=== PATIENT | male | born 1990 | race Two or more races ===

== ENCOUNTER 2020-07-09 01:08 | Emergency (ER) | payer MEDICAID, SELFPAY ==
[2020-07-09 01:11] VITALS: BP 157/94; PULSE 57; RESP 16; TEMP 36.7; O2SAT 98; BMI 31.1
--- NOTE | 2020-07-09 01:43 | ED.DENTAL ---
HPI - Dental/Oral General Chief complaint: Dental/Oral Stated complaint: Dental pain Time Seen by Provider: 07/09/20 01:34 Source: patient Mode of arrival: ambulatory Limitations: no limitations History of Present Illness HPI Narrative: patient comes in complaining of dental pain, maxillary aspect on right side. Patient was seen here on May 24 for the same reason. Patient states he has not been seen by his dentist. MD Complaint: tooth pain Onset (ago): week(s) Duration: constant Severity: moderate Relieving factors: nothing Related Data Previous Rx's Medication Instructions Recorded ketorolac 10 mg PO TID PRN 5 Days tab 07/09/20 penicillin V potassium 500 mg PO Q12H #20 tab 07/09/20 Allergies Allergy/AdvReac Type Severity Reaction Status Date / Time No Known Allergies Allergy Verified 07/09/20 01:10 Review of Systems ENT: Reports dental pain PMFSH Social History Social History Advance Directives: No Advance Directives Information Provided: No Physical Exam Vital Signs: Vital Signs: Vital Signs Temp Pulse Resp BP Pulse Ox 07/09/20 01:11 98.0 F 57 16 157/94 H 98 Body Mass Index 31.1 Const: General: cooperative and well developed Orientation/consciousness: patient oriented x3 HENMT: Head: Yes normal to inspection Ears: external ears normal General nose exam: Normal external nose present Teeth and gingiva: abnormal dentition, caries and other ( Broken tooth in the right maxillary aspect, no obvious abscess visualized) Eyes: General: appearance normal, both eyes and all related structures Neck: Neck: Yes normal visual inspection Chest: Chest palpation & inspection: normal inspection of the chest Resp: Effort & Inspection: able to speak in complete sentences and abnormal respiratory pattern Cardio: Heart sounds: S1 normal heart sound present and S2 normal heart sound present GI: Inspection: Yes normal to inspection Palpation (GI): Soft to palpation and nontender Skin: General skin exam: no rashes or lesions noted Neuro: General: patient oriented x3, gait normal, tone normal and moves all extremities Extrem: General: Yes normal to inspection Psych: Appearance: grossly normal Course Reevaluation(s) Reevaluation #1: patient received 1 dose penicillin p.o. and IM Toradol. MDM - Dental/Oral MDM Narrative Medical decision making narrative: I discussed with the patient, that the definitive treatment is tooth extraction versus root canal, patient is to follow-up with his dentist Discharge Plan Discharge Clinical Impression: Toothache, Dental abscess Patient Disposition: Home, Self-Care Instructions: Dental Abscess (ED) Additional Instructions: please call your dentist and schedule an appointment. If you have any new or worsening symptoms, please return to the emergency room or call 911 Prescriptions: New ketorolac 10 mg tablet 10 mg PO TID PRN (Reason: pain) 5 Days RF: 0 penicillin V potassium 500 mg tablet 500 mg PO Q12H Qty: 20 RF: 0
[2020-07-09] MEDS: Ketorolac Tromethamine 60 MG/2 ML VIAL IM (02:14)
[2020-07-09] MEDS: Penicillin V Potassium 250 MG TABLET 500 MG PO (02:15)
== END 2020-07-09 02:39 | disposition home or self-care (01) ==
PROVIDERS: Emergency Provider Emergency Medicine; PCP Nurse Practitioner Family
DX: K04.7 Periapical abscess without sinus (principal); L02.91 Cutaneous abscess, unspecified
CPT/HCPCS: 96372; 99283; 99284; J1885

== ENCOUNTER 2020-07-11 05:11 | Emergency (ER) | payer MEDICAID, SELFPAY ==
[2020-07-11 05:14] VITALS: BP 152/88; PULSE 81; RESP 18; TEMP 36.2; O2SAT 96; BMI 31.1
[2020-07-11 06:00] VITALS: BP 149/100; PULSE 78; RESP 18; O2SAT 99
--- NOTE | 2020-07-11 06:14 | ED.DENTAL ---
HPI - Dental/Oral General Chief complaint: Dental/Oral Stated complaint: Dental Pain Time Seen by Provider: 07/11/20 06:14 History of Present Illness HPI Narrative: This is a 30-year-old male with left upper molar tooth abscess and seen here on 07/09 and discharged with antibiotics and pain medication, however but patient states that he was unable to pick his prescription up from [facility]. Otherwise, he denies any fevers, chills. Related Data Previous Rx's Medication Instructions Recorded ketorolac 10 mg PO TID PRN 5 Days tab 07/09/20 penicillin V potassium 500 mg PO Q12H #20 tab 07/09/20 ketorolac 10 mg PO TID PRN 5 Days tab 07/11/20 penicillin V potassium 500 mg PO Q12H #20 tab 07/11/20 Allergies Allergy/AdvReac Type Severity Reaction Status Date / Time No Known Allergies Allergy Verified 07/11/20 05:13 Review of Systems Review of Systems: Pertinent positives and negatives as stated in HPI 10 point review of systems otherwise negative. PMFSH Past Medical History Source: nursing notes reviewed Medical History No known health problems Social History Social History Alcohol intake: current Alcohol intake frequency: a few times a week Smoking Status: Current every day smoker Smoked in Last 30 Days: Yes Use of substances other than those prescribed or required for medical reasons: Yes Substance Use Type: Marijuana Substance Use Frequency: Daily Last Used Substance: Days (ago) Any prior treatment program specific to substance use: No Advance Directives: No Advance Directives Information Provided: No Physical Exam Vital Signs: Vital Signs: Vital Signs Temp Pulse Resp BP Pulse Ox 07/11/20 06:00 78 18 149/100 H 99 07/11/20 05:14 97.2 F 81 18 152/88 H 96 Body Mass Index 31.1 VITAL SIGNS: Reviewed. GENERAL: Well developed, well nourished, in no acute distress. HEAD: Normocephalic/atraumatic, EYES: PERRLA, EOMI intact without pain, no nystagmus/pallor/icterus noted EARS: Ext canals without abnormality, TMs non-bulging and non-erythematous NOSE: Nares patent bilateral OROPHARYNX: no oral lesions noted, posterior pharynx clear and non-erythematous without noted tonsillar enlargement/erythema/exudates , left upper molar with inflamed gum, negative trismus NECK: Supple, no adenopathy LUNGS: Normal breath sounds. No adventitious sounds or accessory muscle use. SpO2<96> CARDIOVASCULAR: Regular rate and rhythm without noted murmurs, no JVD or lower extremity edema. ABDOMEN: Soft, non-tender, non-distended with bowel sounds. No rigidity. No guarding. No palpable masses or hernias noted MUSCULOSKELETAL: No tenderness, deformities, or effusions noted on gross inspection. EXTREMITIES: No cyanosis, clubbing or edema. SKIN: Inspection of the skin reveals no rashes, ulcerations, jaundice, pallor, or petechiae. NEUROLOGIC: Alert and oriented x 4. Strength and sensation to light touch were grossly intact x 4. Course Course Course Narrative: This is a 30-year-old male with history and clinical presentation consistent with dental abscess and will resend antibiotics and provide combination analgesic pain control here in the emergency department and then discharge to home. Discharge Plan Discharge Clinical Impression: Dental abscess Patient Disposition: Home, Self-Care Instructions: Dental Abscess (ED) Additional Instructions: The patient and/or family acknowledge understanding of results (as applicable), diagnosis, treatment plan, need for follow up, and symptoms that should prompt a return to the emergency room. Prescriptions: New penicillin V potassium 500 mg tablet 500 mg PO Q12H Qty: 20 RF: 0 ketorolac 10 mg tablet 10 mg PO TID PRN (Reason: pain) 5 Days RF: 0 Continued ketorolac 10 mg tablet 10 mg PO TID PRN (Reason: pain) 5 Days RF: 0 penicillin V potassium 500 mg tablet 500 mg PO Q12H Qty: 20 RF: 0 Referrals: Rosi Valdes NP [Primary Care Provider] - 2 days ( dental abscess)
[2020-07-11] MEDS: Acetaminophen 325 MG TABLET 975 MG PO (06:46)
[2020-07-11] MEDS: Ketorolac Tromethamine 15 MG/ML VIAL IM (06:46)
== END 2020-07-11 07:30 | disposition home or self-care (01) ==
PROVIDERS: Emergency Provider Student in an Organized Health Care Education/Training Program; PCP Nurse Practitioner Family
DX: K04.7 Periapical abscess without sinus (principal); F12.90 Cannabis use, unspecified, uncomplicated
CPT/HCPCS: 96372; 99284; J1885

== ENCOUNTER 2020-07-24 09:07 | Emergency (ER) | payer MEDICAID, SELFPAY ==
--- NOTE | 2020-07-24 09:19 | ED.EYEPROB ---
HPI - Eye Problem General Chief complaint: Eye Problems Stated complaint: swollen eye Time Seen by Provider: 07/24/20 09:17 Source: patient Mode of arrival: ambulatory Limitations: no limitations History of Present Illness HPI Narrative: 30 y/o male presenting with a right swollen eye. He states he woke up with a swollen right upper eyelid this morning. He 1st noted some swelling last night, he uses a warm compress on the area but this morning woke up markedly swollen. He has an extensive history of stye infections in the past and usually gets them 3-4 times per year. He states his vision is blurry from the swelling and it is painful to touch. He does not wear corrective lenses or glasses. He reports some mild crusting and discharge this morning when he woke up. No redness of his sclera. No fevers. No foriegn body sensation. Related Data Previous Rx's Medication Instructions Recorded ketorolac 10 mg PO TID PRN 5 Days tab 07/09/20 penicillin V potassium 500 mg PO Q12H #20 tab 07/09/20 ketorolac 10 mg PO TID PRN 5 Days tab 07/11/20 penicillin V potassium 500 mg PO Q12H #20 tab 07/11/20 erythromycin 0.5 inch OPHTHALMIC-RIGHT 4-5XD 07/24/20 #3.5 g Allergies Allergy/AdvReac Type Severity Reaction Status Date / Time No Known Allergies Allergy Verified 07/11/20 05:13 Review of Systems Review of Systems: Constitutional: No Fever, No Chills ENT/Mouth: No sore throat, No Rhinorrhea, No Swallowing Difficulty Eyes: + Eye Pain, + Swelling, + Redness Cardiovascular: No Chest Pain, No SOB, No Orthopnea, No Edema Respiratory: No Cough, No Sputum, No Wheezing, No dyspnea Gastrointestinal: No Nausea, No Vomiting, No Diarrhea, No abdominal Pain Musculoskeletal: No joint pain, No Myalgias Skin: No Skin Lesions, No rash Neuro: No Weakness, No Numbness, No Dizziness, No Headache Psych: No Anxiety/Panic, No Depression Heme/Lymph: No Bruising, No Lymphadenopathy PMFSH Past Medical History Attestation statement: The following information was validated with the patient. Medical History No known health problems Social History Social History Alcohol intake: current Alcohol intake frequency: a few times a week Alcohol type: beer, wine and hard liquor Smoking Status: Current every day smoker Use of substances other than those prescribed or required for medical reasons: Yes Substance Use Type: Marijuana Substance Use Frequency: Daily Last Used Substance: Hours (ago) Advance Directives: No Advance Directives Information Provided: No Physical Exam Vital Signs: Vital Signs: Vital Signs Temp Pulse Resp BP Pulse Ox 07/24/20 09:22 98.2 F 83 18 140/112 H 97 Body Mass Index 31.1 Appearance: Alert. Oriented X3. No acute distress. Eyes: right eye upper lid with erythema, swelling, tenderness. lid everted with pustular area visualized under the lid. no discharge. no orbital swelling or erythema. no conjunctivial injection or discharge ENT: Pharynx normal. Neck: Normal inspection. Respiratory: No respiratory distress. Abdomen: normal inspection. Skin: Skin warm and dry. Normal skin color. Normal skin turgor. No rashes. Extremities: No lower extremity edema. Neuro: Oriented X 3. No motor deficit. No sensory deficit. Course Course Course Narrative: Patient has a history of styes and gets them frequently. He denies foreign body. Low suspicion for corneal abrasion, periorbital cellulitis. Will treat for external hordeolum and have him follow up with his PCP. MDM - Eye Problem Differential Diagnosis Differential diagnosis: Likely corneal abrasion, conjunctivitis, acute iritis, hyphema and periorbital cellulitis Critical Care Time Critical Care Time Critical Care Time: No Discharge Plan Discharge Clinical Impression: External hordeolum Qualifiers: Laterality: right Eyelid: upper Qualified Code(s): H00.011 - Hordeolum externum right upper eyelid Patient Disposition: Home, Self-Care Instructions: Stye (ED) Additional Instructions: Use warm compresses on your eye several times per day. Do not wear contact lenses until your eye is back to normal. If swelling continues to worsen call your doctor or come back to the ER for further evaluation. Prescriptions: New erythromycin 5 mg/gram (0.5 %) ointment 0.5 inch ophthalmic-Right 4-5XD Qty: 3.5 RF: 0 No Action ketorolac 10 mg tablet 10 mg PO TID PRN (Reason: pain) 5 Days RF: 0 penicillin V potassium 500 mg tablet 500 mg PO Q12H Qty: 20 RF: 0 penicillin V potassium 500 mg tablet 500 mg PO Q12H Qty: 20 RF: 0 ketorolac 10 mg tablet 10 mg PO TID PRN (Reason: pain) 5 Days RF: 0 Stand Alone Forms: Work/School Release Interventions: ED Discharge Assessment Last Done: 07/24/20 09:49 Discharge Date/Time: 07/24/20 09:55
[2020-07-24 09:22] VITALS: BP 140/112; PULSE 83; RESP 18; TEMP 36.8; O2SAT 97; BMI 31.1
== END 2020-07-24 09:55 | disposition home or self-care (01) ==
PROVIDERS: Emergency Provider Emergency Medicine; PCP Nurse Practitioner Family
DX: H00.011 Hordeolum externum right upper eyelid (principal); H57.11 Ocular pain, right eye; Z71.6 Tobacco abuse counseling; Z79.899 Other long term (current) drug therapy; F17.200 Nicotine dependence, unspecified, uncomplicated; F12.90 Cannabis use, unspecified, uncomplicated
CPT/HCPCS: 99283; 99284

== ENCOUNTER 2020-09-24 15:04 | Outpatient (REF) | payer MEDICAID, SELFPAY | END 2020-09-24 15:05 | disposition home or self-care (01) | LOC: HO.LAB 15:04 | PROVIDERS: Visit Provider Internal Medicine | DX: Z20.828 Contact with and (suspected) exposure to other viral communicable diseases (principal) | CPT/HCPCS: 36415; C9803; U0003 ==

== ENCOUNTER 2020-10-10 14:08 | Outpatient (REF) | payer MEDICAID, SELFPAY | END 2020-10-10 14:09 | disposition home or self-care (01) | LOC: HO.LAB 14:08 | PROVIDERS: Visit Provider Internal Medicine | DX: Z20.822 Contact with and (suspected) exposure to COVID-19 (principal) | CPT/HCPCS: 36415; C9803; U0003 ==

== ENCOUNTER 2020-11-21 11:18 | Outpatient (REF) | payer MEDICAID, SELFPAY | END 2020-11-21 11:19 | disposition home or self-care (01) | LOC: HO.LAB 11:18 | PROVIDERS: Visit Provider Internal Medicine | DX: Z20.822 Contact with and (suspected) exposure to COVID-19 (principal) | CPT/HCPCS: 36415; C9803; U0003; U0005 ==

== ENCOUNTER 2020-12-31 10:59 | Outpatient (REF) | payer MEDICAID, SELFPAY | END 2020-12-31 11:00 | disposition home or self-care (01) | LOC: HO.LAB 10:59 | PROVIDERS: Visit Provider Internal Medicine | DX: Z20.822 Contact with and (suspected) exposure to COVID-19 (principal) | CPT/HCPCS: C9803; U0003; U0005 ==

== ENCOUNTER 2021-05-02 05:51 | Emergency (ER) | payer MEDICAID, SELFPAY ==
--- NOTE | ~2021-05-02 | XR_ITS ---
EXAMINATION: XR CHEST CLINICAL INFORMATION: Covid. Cough. Chest wall pain. COMPARISON: 10/28/2018 TECHNIQUE: Frontal view of the chest was obtained. FINDINGS: The lungs are well expanded. There is no focal consolidation, edema, or effusion. No pneumothorax. The cardiomediastinal silhouette is within normal limits. No acute osseous abnormality. XR/XR chest 1V IMPRESSION: Clear lungs.
[2021-05-02 05:58] VITALS: BP 124/76; PULSE 88; RESP 18; TEMP 36.3; O2SAT 93; BMI 31.1
--- NOTE | 2021-05-02 06:38 | ED_ITS ---
HPI - URI/Sore Throat General Chief Complaint: Upper Respiratory Symptoms Stated Complaint: flu like symptoms Time Seen by Provider: 05/02/21 06:28 Source: patient Mode of arrival: ambulatory Limitations: no limitations History of Present Illness HPI Narrative: Patient comes emergency room complaining coughing for 1 week. Patient reports nasal congestion and diffuse body aches. Patient states that his 3-year-old son has similar symptoms. Patient denies fever or chills, complaining nausea, no vomiting, complaining of diarrhea. Related Data Previous Rx's Medication Instructions Recorded ketorolac 10 mg tablet 10 mg PO TID PRN 5 Days tab 07/09/20 penicillin V potassium 500 mg 500 mg PO Q12H #20 tab 07/09/20 tablet ketorolac 10 mg tablet 10 mg PO TID PRN 5 Days tab 07/11/20 penicillin V potassium 500 mg 500 mg PO Q12H #20 tab 07/11/20 tablet erythromycin 5 mg/gram (0.5 %) eye 0.5 inch OPHTHALMIC-RIGHT 4-5XD 07/24/20 ointment #3.5 g benzonatate 100 mg capsule 100 mg PO TID PRN #10 cap 05/02/21 (Tesjuventino Sung) Allergies Allergy/AdvReac Type Severity Reaction Status Date / Time No Known Allergies Allergy Verified 05/02/21 06:02 Review of Systems Review of Systems: Constitutional : No Weight loss, No Fever, No Chills, No Night Sweats, complains of fatigue and diffuse body aches ENT/Mouth : No Hearing loss, No Ear Pain, No Nasal Congestion, No Sinus Pain, No Hoarseness, No sore throat, No Rhinorrhea, No Swallowing Difficulty Eyes: No Eye Pain, No Swelling, No Redness, No Foreign Body, No Discharge, No Vision Changes Cardiovascular : Complaining of chest wall pain only while coughing, No SOB, No Dyspnea on Exertion, No Orthopnea, No Edema, No Palpitations Respiratory : Complaining of dry Cough, No Sputum, No Wheezing, No Smoke Exposure, No Dyspnea Gastrointestinal : Complaining of Nausea, No Vomiting, complaining of Diarrhea, No Constipation, No abdominal Pain, No Hematochezia, No Melena Genitourinary : no irregular bleeding, No Dysuria, No Urinary Frequency, No Hematuria, No Urinary Incontinence, No Urgency, No Flank Pain, No Urinary Flow Changes, No Hesitancy Musculoskeletal : No joint pain, No Myalgias, No Joint Swelling Skin : No Skin Lesions, No rash Neuro : No Weakness, No Numbness, No Paresthesias, No Loss of Consciousness, No Dizziness, No Headache Psych : No Anxiety/Panic, No Depression, No SI/HI/AH/VH, No Social Issues, Heme/Lymph: No Bruising, No Bleeding,No Lymphadenopathy Endocrine : No Polyuria, No Polydipsia, No Temperature Intolerance [facility] Past Medical History Medical History No known health problems Social History Social History Alcohol intake: current Alcohol intake frequency: a few times a week Alcohol type: beer, wine and hard liquor Substance Use Type: Marijuana Advance Directives: No Advance Directives Information Provided: No Physical Exam Vital Signs: Vital Signs: Last Vital Signs Temp 97.3 F 05/02/21 05:58 Pulse 88 05/02/21 05:58 Resp 18 05/02/21 05:58 BP 124/76 05/02/21 05:58 Pulse Ox 93 05/02/21 05:58 Body Mass Index 31.1 Course Course Course Narrative: Patient's x-ray unremarkable and COVID test negative. Patient likely having viral bronchitis. MDM - URI/Sore Throat Lab Data Labs: Lab Results 05/02/21 Range/Units 06:14 Coronavirus (PCR) NEGATIVE (Negative) Influenza Type A (PCR) NEGATIVE (Negative) Influenza Type B (PCR) NEGATIVE (Negative) RSV RNA Qual (PCR) NEGATIVE (Negative) Imaging Data Chest x-ray: Radiologist's impression: The lungs are well expanded. There is no focal consolidation, edema, or effusion. No pneumothorax. The cardiomediastinal silhouette is within normal limits. No acute osseous abnormality. XR/XR chest 1V IMPRESSION: Clear lungs. Discharge Plan Discharge Clinical Impression: Acute bronchitis, viral Patient Disposition: Home, Self-Care Instructions: Acute Bronchitis (ED) Additional Instructions: COVID test was negative and your chest x-ray was normal. Please follow-up with your primary care physician tomorrow. If you have any worsening or new symptoms, please return to the emergency room or call 911 Prescriptions: New benzonatate [Tessalon Perlaltagracia] 100 mg capsule 100 mg PO TID PRN (Reason: cough) Qty: 10 RF: 0 No Action erythromycin 5 mg/gram (0.5 %) ointment 0.5 inch ophthalmic-Right 4-5XD Qty: 3.5 RF: 0 ketorolac 10 mg tablet 10 mg PO TID PRN (Reason: pain) 5 Days RF: 0 penicillin V potassium 500 mg tablet 500 mg PO Q12H Qty: 20 RF: 0 penicillin V potassium 500 mg tablet 500 mg PO Q12H Qty: 20 RF: 0 ketorolac 10 mg tablet 10 mg PO TID PRN (Reason: pain) 5 Days RF: 0
[2021-05-02 07:15] LABS: Influenza A PCR NEGATIVE (Negative); Influenza B PCR NEGATIVE (Negative); Resp Syncy Virus RNA Qual PCR NEGATIVE (Negative); SARS COV2 PCR INHOUSE NEGATIVE (Negative)
== END 2021-05-02 08:43 | disposition home or self-care (01) ==
PROVIDERS: Emergency Provider Emergency Medicine
DX: J20.8 Acute bronchitis due to other specified organisms (principal); Z20.822 Contact with and (suspected) exposure to COVID-19; F17.210 Nicotine dependence, cigarettes, uncomplicated
CPT/HCPCS: 0241U; 36415; 71045; 99283

== ENCOUNTER 2021-05-08 08:00 | Emergency (ER) | payer MEDICAID, SELFPAY ==
--- NOTE | ~2021-05-08 | CT_ITS ---
EXAMINATION: CT ANGIOGRAM OF THE CHEST WITH AND WITHOUT CONTRAST (CT PULMONARY ANGIOGRAM FOR PE) CLINICAL INFORMATION: Dyspnea. Hemoptysis. Evaluate for a pulmonary embolism. COMPARISON: Most recent chest radiograph dated 05/02/2021. TECHNIQUE: Prior to contrast administration, noncontrast localization images were obtained. Subsequently, multidetector volumetric imaging was performed from the thoracic inlet to below the diaphragms following the administration of 75 mL Omnipaque 350 intravenous contrast. No contrast reaction reported Sagittal, coronal, and MIP oblique sagittal reformatted images were obtained on the CT workstation, uploaded to PACS, and reviewed. This CT examination was performed using dose optimization techniques as appropriate, variously including the following: *Automated exposure control *Adjustment of mA and/or kV according to patient size (this includes techniques or standardized protocols for targeted exams where dose is matched to indication/reason for exam; i.e. extremities or head) *Use of iterative reconstruction technique Total exam dose-length product 409 mGy-cm FINDINGS: QUALITY OF STUDY/CONTRAST BOLUS: Satisfactory. PULMONARY ARTERIES: No central or segmental pulmonary emboli. THORACIC AORTA: No aneurysm or dissection. LUNG: There is a subpleural nodule along the right major fissure measuring 0.5 cm, which may represent a nodule versus subpleural lymph node. Within the posterior right lung base, there is a 0.2 cm noncalcified subpleural nodule (axial image 3-60 4/501). Additional posterior right lower lobe 0.2 cm nodule (axial image 381/501). Left upper lobe 0.2 cm nodule (axial image 2-50 6/501). Left lower lobe 0.2 cm nodule (axial image 283/501). Additional posterior left lower lobe 0.3 cm subpleural nodule (axial image 345/501). No large pulmonary mass or confluent airspace consolidation. The central airways are patent. PLEURA: No pleural effusion or pneumothorax. MEDIASTINUM: Normal heart size. No pericardial effusion. No hilar or mediastinal lymphadenopathy. Mild heterogeneous soft tissue within the anterosuperior mediastinum, likely indicating residual thymus. Partially visualized and unremarkable thyroid. No evidence of septal bowing or right heart strain. CHEST WALL/AXILLA: No axillary or internal mammary lymphadenopathy. OSSEOUS STRUCTURES: No acute or suspicious osseous abnormality. UPPER ABDOMEN: Unremarkable. No reflux of contrast into the hepatic veins to suggest elevated right heart pressures. CT/CT angio chest PE protocol IMPRESSION: 1. No CT angiographic evidence of acute pulmonary embolism. 2. Multiple small noncalcified pulmonary nodules measuring up to 0.5 cm. According to the UPDATED 2017 Fleischner Society recommendations, the advised follow-up imaging for solid nodules < 6 mm is: LOW RISK PATIENT: No routine follow-up. HIGH RISK PATIENT: Optional CT at 12 months. 3. No large coronary mass or confluent airspace consolidation. VTE: Negative.
--- NOTE | 2021-05-08 08:04 | ED_ITS ---
HPI - SOB/Dyspnea General Chief Complaint: Upper Respiratory Symptoms Stated Complaint: coughing up blood Time Seen by Provider: 05/08/21 08:04 Source: patient Mode of arrival: ambulatory Limitations: no limitations History of Present Illness MD elicited complaint: cough (streaks of blood hemoptysis) Onset (ago): day(s) (yesterday had cough for 4 days recently seen here negative CXR negative COVID sent home with bethwerojoss) Context: recent illness Timing: intermittent Severity: moderate Exacerbating factors: exertion Relieving factors: nothing Associated symptoms: sputum production and hemoptysis Treatment prior to arrival: none Related Data Previous Rx's Medication Instructions Recorded ketorolac 10 mg tablet 10 mg PO TID PRN 5 Days tab 07/09/20 penicillin V potassium 500 mg 500 mg PO Q12H #20 tab 07/09/20 tablet ketorolac 10 mg tablet 10 mg PO TID PRN 5 Days tab 07/11/20 penicillin V potassium 500 mg 500 mg PO Q12H #20 tab 07/11/20 tablet erythromycin 5 mg/gram (0.5 %) eye 0.5 inch OPHTHALMIC-RIGHT 4-5XD 07/24/20 ointment #3.5 g benzonatate 100 mg capsule 100 mg PO TID PRN #10 cap 05/02/21 (Bethsaljoss Sung) albuterol sulfate 90 mcg/actuation 2 puff INHALATION QID PRN #6.7 g 05/08/21 aerosol inhaler azithromycin 500 mg tablet See Rx Instructions .ROUTE 05/08/21 .COMPLEX #6 tab prednisone 20 mg tablet 60 mg PO DAILY 5 Days #15 tab 05/08/21 Allergies Allergy/AdvReac Type Severity Reaction Status Date / Time No Known Allergies Allergy Verified 05/02/21 06:02 Review of Systems Review of Systems: Constitutional : No Weight loss, No Fever, No Chills, No Fatigue, No Malaise ENT/Mouth : No sore throat, No Rhinorrhea Eyes: No Eye Pain, No Swelling, No Redness Cardiovascular : No Chest Pain,pos SOB, No Dyspnea on Exertion, No Orthopnea, No Edema, No Palpitations Respiratory : pos Cough, pos Sputum, No Wheezing Gastrointestinal : No Nausea, No Vomiting, No Diarrhea, No Constipation, No abdominal Pain, No Hematochezia, No Melena Genitourinary : No Dysuria, No Urinary Frequency, No Hematuria, Musculoskeletal : No joint pain, No Myalgias, No Joint Swelling Skin : No Skin Lesions, No rash Neuro : No Weakness, No Numbness, No Dizziness, No Headache Psych : No Anxiety/Panic, No Depression Heme/Lymph: No Bruising, No Bleeding,No Lymphadenopathy Endocrine : No Polyuria, No Polydipsia All other systems reviewed and are negative PMFSH Past Medical History Medical History No known health problems Social History Social History Alcohol intake: current Alcohol intake frequency: former alcohol drinker Alcohol type: beer, wine and hard liquor Patient Tobacco Use Status: Current everyday Tobacco user Use of substances other than those prescribed or required for medical reasons: Yes Substance Use Type: Marijuana Substance Use Frequency: Weekly Advance Directives: No Advance Directives Information Provided: No Physical Exam Vital Signs: Vital Signs: Last Vital Signs Temp 98.0 F 05/08/21 08:08 Pulse 70 05/08/21 08:44 Resp 20 05/08/21 08:44 BP 130/70 05/08/21 08:08 Pulse Ox 99 05/08/21 08:45 Body Mass Index 31.1 Appearance: Alert. Oriented X3. No acute distress. Eyes: Pupils equal, round and reactive to light. ENT: Pharynx normal. Neck: Normal inspection. Neck supple. CVS: Normal heart rate and rhythm. Pulses normal. Respiratory: No respiratory distress. Breath sounds diffuse end exp wheezes Abdomen: Soft and nontender. Skin: Skin warm and dry. Normal skin color. Normal skin turgor. Extremities: No lower extremity edema. No calf ttp Neuro: Oriented X 3. No motor deficit. No sensory deficit. Course Course Course Narrative: will start on steroids, INH, zpak for bronchitis MDM - SOB/Dyspnea MDM Narrative Medical decision making narrative: 30 yo male otherwise healthy here with cough/hemoptysis and wheezing no prior hx of asthma, will repeat COVID test, obtain labs, CTA for PE/mass likely bronchitis, albuterol treatment ordered, dispo per results and findings. Lab Data Result diagrams: 05/08/21 08:32 05/08/21 08:32 Labs: Lab Results 05/08/21 05/08/21 05/08/21 Range/Units 08:32 08:32 08:32 WBC 11.1 H (4.8-10.8) X10*3/uL RBC 5.28 (4.60-5.80) X10*6/uL Hgb 15.6 (14.0-18.0) g/dl Hct 46.1 (42-52) % MCV 87.3 (80-98) fL MCH 29.5 (27.0-33.0) pg MCHC 33.8 (31.0-36.0) g/dl RDW 13.2 (11.0-16.0) % Plt Count 259 (160-400) X10*3/uL MPV 10.2 (9.4-12.4) fL Immature Gran % (Auto) 0.3 (0.0-0.4) % Neut % (Auto) 57.1 (45-73) % Lymph % (Auto) 33.0 (20-40) % [place] % (Auto) 6.2 (2-11) % Eos % (Auto) 2.9 (0-4) % Baso % (Auto) 0.5 (0-2) % Lymph # (Auto) 3.7 (1.2-4.9) X10*3/uL [place] # (Auto) 0.7 (0.1-1.2) X10*3/uL Eos # (Auto) 0.3 (0.0-0.4) X10*3/uL Baso # (Auto) 0.1 (0.0-0.2) X10*3/uL Abs Immat Gran (auto) 0.03 (0.00-0.03) X10*3/uL Absolute Neuts (auto) 6.3 (2.0-8.3) X10*3/uL Absolute Nucleated RBC 0.000 (0.0-0.012) X10*3/uL Nucleated RBC % (auto) 0.0 (0.0-0.2) /100WBC Sodium 140 (135-145) mmol/L Potassium 3.8 (3.3-5.1) mmol/L Chloride 107 (96-108) mmol/L Carbon Dioxide 26 (22-29) mmol/L Anion Gap 11 L (12-20) BUN 13 (9-16) mg/dL Creatinine 0.89 (0.5-1.4) mg/dL Estim Creat Clear Calc 151.5 Estimated GFR > 60 Random Glucose 99 (60-115) mg/dL Calcium 9.1 (8.4-10.2) mg/dL Total Bilirubin 0.5 (0.0-1.0) mg/dL Direct Bilirubin 0.2 (0.0-0.5) mg/dL AST 22 (5-37) U/L ALT 28 (0-40) U/L Alkaline Phosphatase 81 (39-117) U/L Total Protein 7.3 (6.5-8.0) g/dL Albumin 4.1 (3.5-5.0) g/dL COVID-19 (EMY) Negative (Negative) COVID-19 Clin Com See Note Discharge Plan Discharge Clinical Impression: Bronchitis Patient Disposition: Home, Self-Care Instructions: Acute Bronchitis (ED) Additional Instructions: return to ED for any worsening symptoms or concerns COVID test was negative avoid aspirin 2 puffs on inhaler every 4 hours as needed for cough or shortness of breath you had small nodules in your lungs likely related to inflammation - follow up with doctor you may need repeat CT scan in 1 year avoid smoking Prescriptions: New prednisone 20 mg tablet 60 mg PO DAILY 5 Days Qty: 15 RF: 0 albuterol sulfate 90 mcg/actuation HFA aerosol inhaler 2 puff inhalation QID PRN (Reason: shortness of breath or wheezing) Qty: 6.7 RF: 0 azithromycin 500 mg tablet See Rx Instructions .ROUTE .COMPLEX Qty: 6 RF: 0 No Action erythromycin 5 mg/gram (0.5 %) ointment 0.5 inch ophthalmic-Right 4-5XD Qty: 3.5 RF: 0 benzonatate [Tessalon Perles] 100 mg capsule 100 mg PO TID PRN (Reason: cough) Qty: 10 RF: 0 ketorolac 10 mg tablet 10 mg PO TID PRN (Reason: pain) 5 Days RF: 0 penicillin V potassium 500 mg tablet 500 mg PO Q12H Qty: 20 RF: 0 penicillin V potassium 500 mg tablet 500 mg PO Q12H Qty: 20 RF: 0 ketorolac 10 mg tablet 10 mg PO TID PRN (Reason: pain) 5 Days RF: 0 Referrals: [facility] [Primary Care Provider] - 2 days (if not better) Stand Alone Forms: Work/School Release
[2021-05-08 08:08] VITALS: BP 130/70; PULSE 84; RESP 18; TEMP 36.7; O2SAT 96; BMI 31.1
[2021-05-08] MEDS: Albuterol Sulfate (0.083%) 2.5 MG/3 ML VIAL.NEB INHALE (08:19)
[2021-05-08 08:20] VITALS: PULSE 75; O2SAT 96
[2021-05-08 08:38] LABS: MANUAL DIFF FLAG NO
[2021-05-08 08:41] LABS: Basophils Absolute Auto 0.1 X10*3/uL (0.0-0.2); Basophils Percent Auto 0.5 % (0-2); Eosinophils Absolute Auto 0.3 X10*3/uL (0.0-0.4); Eosinophils Percent Auto 2.9 % (0-4); Hematocrit 46.1 % (42-52); Hemoglobin 15.6 g/dl (14.0-18.0); Imm Gran Abs Auto 0.03 X10*3/uL (0.00-0.03); Imm Gran Pct Auto 0.3 % (0.0-0.4); Lymphocytes Absolute Auto 3.7 X10*3/uL (1.2-4.9); Mean Corpuscular HGB Conc 33.8 g/dl (31.0-36.0); Mean Corpuscular Hemoglobin 29.5 pg (27.0-33.0); Mean Corpuscular Volume 87.3 fL (80-98); Mean Platelet Volume 10.2 fL (9.4-12.4); Monocytes Absolute Auto 0.7 X10*3/uL (0.1-1.2); Monocytes Percent Auto 6.2 % (2-11); Neutrophils Absolute Auto 6.3 X10*3/uL (2.0-8.3); Neutrophils Percent Auto 57.1 % (45-73); Platelet Count 259 X10*3/uL (160-400); Red Blood Count 5.28 X10*6/uL (4.60-5.80); Red Cell Distribution Width 13.2 % (11.0-16.0); White Blood Count 11.1 X10*3/uL (4.8-10.8)
[2021-05-08 08:44] VITALS: PULSE 70; RESP 20; O2SAT 99
[2021-05-08 08:45] VITALS: O2SAT 99
--- NOTE | 2021-05-08 08:45 | PC.NURSE ---
PT ALERT AND ORIENTED, SKIN PWD, RESPIRATIONS EVEN AND UNLABORED, LS CLEAR, NS ON THE MONITOR. PT REPORTS FOR ABOUT 4 DAYS HAVING A DRY COUGH WAS TESTED FOR COVID AND IT WAS NEGATIVE, YESTERDAY COUGHING UP TINGES OF BLOOD-BRIGHT RED/STRIKES, HAVING SOME CHEST TIGHTNESS AND CHEST PAIN ONLY WITH COUGHING AND FEELING SOB WITH EXERTION
[2021-05-08 09:01] LABS: COVID-19 Test Negative (Negative)
[2021-05-08 09:23] LABS: Alanine Aminotransferase 28 U/L (0-40); Albumin Level 4.1 g/dL (3.5-5.0); Alkaline Phosphatase 81 U/L (39-117); Anion Gap 11 (12-20); Aspartate Amino Transferase 22 U/L (5-37); Bilirubin Direct 0.2 mg/dL (0.0-0.5); Blood Urea Nitrogen 13 mg/dL (9-16); Calcium 9.1 mg/dL (8.4-10.2); Carbon Dioxide 26 mmol/L (22-29); Chloride 107 mmol/L (96-108); Creatinine Clr Calc Pharmacy 151.5; Estimated Glomerular Filt Rate > 60; Glucose Random 99 mg/dL (60-115); Potassium 3.8 mmol/L (3.3-5.1); Sodium 140 mmol/L (135-145); Total Protein 7.3 g/dL (6.5-8.0)
[2021-05-08 09:48] LABS: Bilirubin Total 0.5 mg/dL (0.0-1.0)
[2021-05-08] MEDS: iohexoL 350 MG/ML 100 ML INFUS..BTL IV (09:57)
[2021-05-08] MEDS: Albuterol Sulfate 90 MCG 8 GM INHALER 2 PUFF INHALE (11:25)
== END 2021-05-08 11:37 | disposition home or self-care (01) ==
PROVIDERS: Emergency Provider Emergency Medicine
DX: J40 Bronchitis, not specified as acute or chronic (principal); R05 Cough; F17.200 Nicotine dependence, unspecified, uncomplicated; Z71.6 Tobacco abuse counseling; F12.90 Cannabis use, unspecified, uncomplicated; Z79.899 Other long term (current) drug therapy; Z20.822 Contact with and (suspected) exposure to COVID-19
CPT/HCPCS: 36415; 71275; 80048; 80076; 85025; 87635; 94640; 99284; 99285; Q9967

== ENCOUNTER 2021-06-05 04:26 | Emergency (ER) | payer MEDICAID, SELFPAY ==
[2021-06-05 04:37] VITALS: BP 130/86; PULSE 82; RESP 18; TEMP 36.9; O2SAT 96; BMI 31.2
== END 2021-06-05 04:45 | disposition left against medical advice (07) ==
LOC: HO.ED 04:45
PROVIDERS: Emergency Provider Emergency Medicine; PCP Nurse Practitioner Family
DX: R10.30 Lower abdominal pain, unspecified (principal)
CPT/HCPCS: 99281; 99282

== ENCOUNTER 2021-06-20 15:49 | Outpatient (REF) | payer MEDICAID, SELFPAY ==
[2021-06-20 16:13] LABS: COVID-19 Test Positive (Negative); IDNOW Serial# 9DD0AD1C
== END 2021-06-20 15:50 | disposition home or self-care (01) ==
LOC: HO.LAB 15:49
PROVIDERS: PCP Nurse Practitioner Family; Visit Provider Internal Medicine
DX: Z20.822 Contact with and (suspected) exposure to COVID-19 (principal)
CPT/HCPCS: 36415; 87635; C9803

== ENCOUNTER 2021-06-20 16:01 | Emergency (ER) | payer MEDICAID, SELFPAY ==
--- NOTE | ~2021-06-20 | XR_ITS ---
EXAMINATION: XR CHEST CLINICAL INFORMATION: Cough COMPARISON: CTA chest 05/08/2021. TECHNIQUE: 2 views of the chest were obtained. FINDINGS: Lungs are clear. No focal consolidation or mass. Normal pulmonary vascularity. No pleural effusion or pneumothorax. Normal heart size. No acute osseous abnormality. XR/XR chest 2V IMPRESSION: No acute pulmonary disease.
[2021-06-20 16:18] VITALS: BP 133/88; PULSE 101; RESP 18; TEMP 37.9; O2SAT 94; BMI 31.1
--- NOTE | 2021-06-20 22:39 | ED_ITS ---
HPI - General Adult General Chief complaint: General Medical Stated complaint: flu symptons Time Seen by Provider: 06/20/21 19:14 Source: patient Mode of arrival: ambulatory Limitations: no limitations History of Present Illness HPI narrative: Patient came back from [facility] after vacation 2 days ago complaining of increased artery cough shortness of breath headache body aches for last 24 hours was tested for COVID 2 days ago was negative. Also patient stepped on CR chain and has stinger in his right greater toe. Patient not been vaccinated against COVID-19 Related Data Previous Rx's Medication Instructions Recorded ketorolac 10 mg tablet 10 mg PO TID PRN 5 Days tab 07/09/20 penicillin V potassium 500 mg 500 mg PO Q12H #20 tab 07/09/20 tablet ketorolac 10 mg tablet 10 mg PO TID PRN 5 Days tab 07/11/20 penicillin V potassium 500 mg 500 mg PO Q12H #20 tab 07/11/20 tablet erythromycin 5 mg/gram (0.5 %) eye 0.5 inch OPHTHALMIC-RIGHT 4-5XD 07/24/20 ointment #3.5 g benzonatate 100 mg capsule 100 mg PO TID PRN #10 cap 05/02/21 (Tessalon Perles) albuterol sulfate 90 mcg/actuation 2 puff INHALATION QID PRN #6.7 g 05/08/21 aerosol inhaler azithromycin 500 mg tablet See Rx Instructions .ROUTE 05/08/21 .COMPLEX #6 tab prednisone 20 mg tablet 60 mg PO DAILY 5 Days #15 tab 05/08/21 dexamethasone 6 mg tablet 6 mg PO DAILY #7 tab 06/20/21 (Decadron) doxycycline hyclate 100 mg tablet 100 mg PO BID #20 tab 06/20/21 Allergies Allergy/AdvReac Type Severity Reaction Status Date / Time No Known Allergies Allergy Verified 06/20/21 16:17 Review of Systems Review of Systems: Yes all other systems are reviewed and are negative PMFSH Past Medical History Medical History No known health problems Social History Social History Alcohol intake: current Alcohol intake frequency: former alcohol drinker Alcohol type: beer, wine and hard liquor Patient Tobacco Use Status: Current everyday Tobacco user Substance Use Type: Marijuana Advance Directives: Yes Advance Directives Information Provided: Yes Advance Directives on File: No Physical Exam Vital Signs: Vital Signs: Last Vital Signs Temp 100.3 F 06/20/21 16:18 Pulse 101 H 06/20/21 16:18 Resp 18 06/20/21 16:18 BP 133/88 06/20/21 16:18 Pulse Ox 94 06/20/21 16:18 Body Mass Index 31.1 Appearance: Alert. Oriented X3. No acute distress. ENT: Pharynx normal. Oral Mucosa moist Neck: Normal inspection. Neck supple. CVS: Normal heart rate and rhythm. Pulses normal. Respiratory: No respiratory distress. Equal air entry bilateral, no wheezing/rales/rhonchi Abdomen: Soft and nontender. Skin: Skin warm and dry. Normal skin color. Normal skin turgor. Extremities: No lower extremity edema. No calf tenderness few stingers at the base of right great toe Neuro: Oriented X 3. Medical Decision Making MDM Narrative Medical decision making narrative: Patient COVID-19 positive with mild symptoms sting are at the base of right great toe were removed using needle and lidocaine patient will be discharged home on doxycycline and Decadron Lab Data Lab results reviewed: Yes I reviewed the patient's lab results. Discharge Plan Discharge Clinical Impression: COVID-19 Patient Disposition: Home, Self-Care Instructions: COVID-19 (Coronavirus Disease 2019) (ED) Additional Instructions: Social distancing and isolation as advised for 2 weeks Meds as advised Report to the ER if increased shortness of breath Prescriptions: New dexamethasone [Decadron] 6 mg tablet 6 mg PO DAILY Qty: 7 RF: 0 doxycycline hyclate 100 mg tablet 100 mg PO BID Qty: 20 RF: 0 No Action erythromycin 5 mg/gram (0.5 %) ointment 0.5 inch ophthalmic-Right 4-5XD Qty: 3.5 RF: 0 benzonatate [Tessalon Perles] 100 mg capsule 100 mg PO TID PRN (Reason: cough) Qty: 10 RF: 0 prednisone 20 mg tablet 60 mg PO DAILY 5 Days Qty: 15 RF: 0 albuterol sulfate 90 mcg/actuation HFA aerosol inhaler 2 puff inhalation QID PRN (Reason: shortness of breath or wheezing) Qty: 6.7 RF: 0 azithromycin 500 mg tablet See Rx Instructions .ROUTE .COMPLEX Qty: 6 RF: 0 ketorolac 10 mg tablet 10 mg PO TID PRN (Reason: pain) 5 Days RF: 0 penicillin V potassium 500 mg tablet 500 mg PO Q12H Qty: 20 RF: 0 penicillin V potassium 500 mg tablet 500 mg PO Q12H Qty: 20 RF: 0 ketorolac 10 mg tablet 10 mg PO TID PRN (Reason: pain) 5 Days RF: 0 Interventions: ED Discharge Assessment Last Done: 06/20/21 23:36 Discharge Date/Time: 06/20/21 23:37
[2021-06-20] MEDS: dexAMETHasone 6 MG TABLET PO (23:23)
[2021-06-20] MEDS: Lidocaine HCl 1 % MPF 5 ML VIAL INFILTRATI (23:33)
== END 2021-06-20 23:37 | disposition home or self-care (01) ==
PROVIDERS: Emergency Provider Internal Medicine; PCP Nurse Practitioner Family
DX: U07.1 COVID-19 (principal); R05 Cough; R06.02 Shortness of breath; M79.10 Myalgia, unspecified site; F12.90 Cannabis use, unspecified, uncomplicated; F17.200 Nicotine dependence, unspecified, uncomplicated; Z79.899 Other long term (current) drug therapy; Z71.6 Tobacco abuse counseling
CPT/HCPCS: 71046; 99283; 99284; J8540

== ENCOUNTER 2021-06-28 13:58 | Outpatient (REF) | payer MEDICAID, SELFPAY ==
[2021-06-28 14:59] LABS: COVID-19 Test Positive (Negative)
== END 2021-06-28 13:59 | disposition home or self-care (01) ==
LOC: HO.LAB 13:58
PROVIDERS: PCP Nurse Practitioner Family; Visit Provider Internal Medicine
DX: Z20.822 Contact with and (suspected) exposure to COVID-19 (principal)
CPT/HCPCS: 36415; 87635; C9803

== ENCOUNTER 2021-09-21 10:59 | Outpatient (REF) | payer MEDICAID, SELFPAY ==
[2021-09-21 11:40] LABS: Binax Internal Control QC Valid; Binax Lot number: 9864; Binax Now Covid-19 Ag Negative (Negative)
== END 2021-09-21 11:00 | disposition home or self-care (01) ==
LOC: HO.LAB 10:59
PROVIDERS: Visit Provider Internal Medicine
DX: U07.1 COVID-19 (principal)
CPT/HCPCS: 36415; C9803

== ENCOUNTER 2021-10-06 10:45 | Emergency (ER) | payer MEDICAID, SELFPAY ==
[2021-10-06 11:09] VITALS: BP 112/82; PULSE 98; RESP 18; TEMP 36.1; O2SAT 95; BMI 29.8
--- NOTE | 2021-10-06 11:35 | ED_ITS ---
HPI - Wound/Laceration General Chief Complaint: Wound/Laceration Stated Complaint: cyst groin area Time Seen by Provider: 10/06/21 11:34 Source: patient Mode of arrival: ambulatory Limitations: no limitations History of Present Illness HPI narrative: 31-year-old male presenting to the emergency department with pain and swelling to the right inner groin. Patient tells me that this has been going on for a week progressively worsening. He tells me it is very painful particularly to the touch. He tells me that this has happened to him before, it has been an abscess in the past and they have had to drain it. He denies fevers, chills, nausea, vomiting, chest pain, shortness of breath. Onset (ago): week(s) (1) Location: other (r. groin) Patient tetanus UTD: Yes Associated symptoms: none Related Data Previous Rx's Medication Instructions Recorded ketorolac 10 mg tablet 10 mg PO TID PRN 5 Days tab 07/09/20 penicillin V potassium 500 mg 500 mg PO Q12H #20 tab 07/09/20 tablet ketorolac 10 mg tablet 10 mg PO TID PRN 5 Days tab 07/11/20 penicillin V potassium 500 mg 500 mg PO Q12H #20 tab 07/11/20 tablet erythromycin 5 mg/gram (0.5 %) eye 0.5 inch OPHTHALMIC-RIGHT 4-5XD 07/24/20 ointment #3.5 g benzonatate 100 mg capsule 100 mg PO TID PRN #10 cap 05/02/21 (Tessalon Perles) albuterol sulfate 90 mcg/actuation 2 puff INHALATION QID PRN #6.7 g 05/08/21 aerosol inhaler azithromycin 500 mg tablet See Rx Instructions .ROUTE 05/08/21 .COMPLEX #6 tab prednisone 20 mg tablet 60 mg PO DAILY 5 Days #15 tab 05/08/21 dexamethasone 6 mg tablet 6 mg PO DAILY #7 tab 06/20/21 (Decadron) doxycycline hyclate 100 mg tablet 100 mg PO BID #20 tab 06/20/21 cephalexin 500 mg tablet 500 mg PO Q6H 10 Days #40 tab 10/06/21 doxycycline hyclate 100 mg capsule 100 mg PO BID 10 Days #20 cap 10/06/21 oxycodone 5 mg tablet 5 mg PO Q6H PRN #14 tab 10/06/21 Allergies Allergy/AdvReac Type Severity Reaction Status Date / Time No Known Allergies Allergy Verified 06/20/21 16:17 Review of Systems Review of Systems: Constitutional : No Fever, No Chills, Cardiovascular : No Chest Pain, No SOB Respiratory : No Dyspnea Gastrointestinal : No abdominal pain Musculoskeletal : No Joint Swelling Skin : No rash, No skin laceration, + abscess Neuro : No Weakness, No Numbness Psych : No SI/HI Yes all other systems are reviewed and are negative [facility] Past Medical History Attestation statement: The following information was validated with the patient. Source: old records reviewed and nursing notes reviewed Medical History No known health problems Social History Social History Alcohol intake: current Alcohol intake frequency: former alcohol drinker Alcohol type: beer, wine and hard liquor Patient Tobacco Use Status: Current everyday Tobacco user Substance Use Type: Marijuana Advance Directives: No Advance Directives Information Provided: No Physical Exam Vital Signs: Vital Signs: Last Vital Signs Temp 97 F 10/06/21 11:09 Pulse 98 10/06/21 11:09 Resp 18 10/06/21 11:09 BP 112/82 10/06/21 11:09 Pulse Ox 95 10/06/21 11:09 BMI result Body Mass Index 29.8 Vital signs stable Appearance: Alert.? Oriented X3.? No acute distress.? Head: Normocephalic, atraumatic, no step-offs or deformities? Neck: Normal inspection.? Neck supple.? CVS: Normal heart rate and rhythm.? Pulses normal.? Respiratory: No respiratory distress.? Breath sounds normal.? Abdomen: Soft and nontender.? Skin: Skin warm and dry.? Normal skin color.? Normal skin turgor.? + fluctuant area consistent with an abscess to the right inner groin. (image below) Extremities: No lower extremity edema.? No calf ttp. 5/5 strength to bilateral upper and lower extremities Course Reevaluation(s) Reevaluation #1: Successfully did and decision and drainage at the bedside. Patient tolerated procedure. Purulent discharge from site. No packing. And a sterile dressing was applied. At this time patient will be discharged home with doxycycline and Keflex. I have given him strict return precautions and have advised him to return with new or worsening symptoms. I have also advised him to follow-up with General surgery as these are recu rrent. And this could be hidradenitis suprative Comfortable discharge home Time: 11:39 MDM - Wound/Laceration MDM Narrative Medical decision making narrative: 1139 31 yo M presents to ED w/ abscess to the right inner groin area. Tells me this happens to him often. UTD on tetanus. Denies fevers and chills Physical examination significant for an abscess to the right inner groin. With fluctuance. Plan at this time is to do an incision and drainage Medical Records Attestation: I reviewed the patient's medical records. Lab Data Attestation: I reviewed the patient's lab results. Procedures Abscess I/D Site: other (groin R.) Side (if applicable): right Local Anesthetic: lidocaine 2% Amount of anesthesia used (mL): 10 Technique: incised with blade Amount of fluid expressed (mL): 10 Sent for culture/gram staining?: No Irrigation: Yes Packing used?: none Critical Care Time Critical Care Time Critical Care Time: No Discharge Plan Discharge Clinical Impression: Abscess Patient Disposition: Home, Self-Care Instructions: Abscess (ED), Abscess Follow-up (ED), Abscess Incision and Drainage (DC) Additional Instructions: Take your medications as prescribed. If you were prescribed antibiotics today, it is important that you take your medication to their entirety, do not skip any doses, do not finish them early. Follow-up with your primary care provider this week. Please follow up wit surgery Return to the emergency department with new or worsening symptoms. Such as fevers, chills, nausea, vomiting, abdominal pain, chest pain, shortness of breath In case of emergency call 911 I attest that I have reviewed patients [place], and at the time prescribing the patient a controlled substance is appropriate based off of patients diagnosis and treatment plan. Prescriptions: New doxycycline hyclate 100 mg capsule 100 mg PO BID 10 Days Qty: 20 RF: 0 cephalexin 500 mg tablet 500 mg PO Q6H 10 Days Qty: 40 RF: 0 oxycodone 5 mg tablet 5 mg PO Q6H PRN (Reason: pain) Qty: 14 RF: 0 No Action erythromycin 5 mg/gram (0.5 %) ointment 0.5 inch ophthalmic-Right 4-5XD Qty: 3.5 RF: 0 benzonatate [Tessalon Perles] 100 mg capsule 100 mg PO TID PRN (Reason: cough) Qty: 10 RF: 0 prednisone 20 mg tablet 60 mg PO DAILY 5 Days Qty: 15 RF: 0 albuterol sulfate 90 mcg/actuation HFA aerosol inhaler 2 puff inhalation QID PRN (Reason: shortness of breath or wheezing) Qty: 6.7 RF: 0 azithromycin 500 mg tablet See Rx Instructions .ROUTE .COMPLEX Qty: 6 RF: 0 ketorolac 10 mg tablet 10 mg PO TID PRN (Reason: pain) 5 Days RF: 0 penicillin V potassium 500 mg tablet 500 mg PO Q12H Qty: 20 RF: 0 penicillin V potassium 500 mg tablet 500 mg PO Q12H Qty: 20 RF: 0 ketorolac 10 mg tablet 10 mg PO TID PRN (Reason: pain) 5 Days RF: 0 dexamethasone [Decadron] 6 mg tablet 6 mg PO DAILY Qty: 7 RF: 0 doxycycline hyclate 100 mg tablet 100 mg PO BID Qty: 20 RF: 0 Referrals: Rosi Valdes NP [Primary Care Provider] - 2 days Abundio Jimenez MD [Physician] - 2 days Stand Alone Forms: Work/School Release
[2021-10-06] MEDS: Lidocaine HCl 2 % MPF 5 ML VIAL SUBCUT ×2 (11:46)
== END 2021-10-06 12:59 | disposition home or self-care (01) ==
PROVIDERS: Emergency Provider Emergency Medicine; PCP Nurse Practitioner Family
DX: L02.214 Cutaneous abscess of groin (principal); R10.30 Lower abdominal pain, unspecified; F17.200 Nicotine dependence, unspecified, uncomplicated; Z71.6 Tobacco abuse counseling; Z79.899 Other long term (current) drug therapy
CPT/HCPCS: 10060; 96374; 96376; 99283; 99284

== ENCOUNTER → 2021-10-09 11:04 | Outpatient (BNVA) | payer MEDICAID, SELFPAY | PROVIDERS: PCP Nurse Practitioner; Referring Provider Nurse Practitioner; Visit Provider Surgery | DX: L72.0 Epidermal cyst (principal) | CPT/HCPCS: 99202 ==

== ENCOUNTER 2021-11-05 08:16 | Outpatient (REF) | payer MEDICAID, SELFPAY ==
[2021-11-05 08:57] LABS: COVID-19 Test Negative (Negative); IDNOW Serial# 16C4AD1C
== END 2021-11-05 08:17 | disposition home or self-care (01) ==
LOC: HO.LAB 08:16
PROVIDERS: Visit Provider Internal Medicine
DX: Z20.822 Contact with and (suspected) exposure to COVID-19 (principal)
CPT/HCPCS: 87635; C9803

== ENCOUNTER 2021-11-22 07:08 | Day surgery (SDC) | payer MEDICAID, SELFPAY ==
[2021-11-15 14:43] VITALS: BMI 32.0
[2021-11-22 07:20] VITALS: BP 133/85; PULSE 76; RESP 16; TEMP 36.4; O2SAT 94
--- NOTE | 2021-11-22 07:23 | MHC.SHP ---
Pre-Procedural Eval Section A Date of Service: 11/22/21 Section B Chief Complaint: Epidermal Cyst Details of Present Illness: has had recurrent area of swelling and drainage on the right heel thigh Relevant Social History: None Present Medications: see Short Stay Collaborative assessment Medical History: Significant History (hx of bronchitis) History of Previous Operations: No relevant previous surgery Allergies: Allergies Allergy/AdvReac Type Severity Reaction Status Date / Time No Known Allergies Allergy Verified 11/15/21 14:39 Review of Systems Sugical H&P ROS: Negative: Constitution, Cardiovascular, Respiratory, Neurological, Psychiatric, Hem-Onc, Allergic/Immunologic, Gastrointestinal, Genitourinary, Musculoskeletal, Integumentary, Endocrine and Eyes/Ears/Nose/Throat Exam Surgical H&P Exam: Normal: HEENT, Normal: Heart, Normal: Lungs, Normal: Abdomen, Normal: Skin and Normal: Neurological and Significant Findings: Extremities (induration on medial right thigh) Plan Diagnosis/Plan: Unchanged I have reviewed the history and physical and performed a pertinent physical examination on my patient. No changes have occurred unless specified.
--- NOTE | 2021-11-22 07:43 | HO.ANESPROP2 ---
[facility] Active Problems Active Problems: All Active Problems (Updated 11/15/21 @ 14:43 by Gail Ryan RN) COVID-19 (Acute) Epidermal cyst (Acute) Past Medical History Medical History ADD (attention deficit disorder) Epidermal cyst Hx of bronchitis Smoker Family History Family history of problems with anesthesia: No Surgical History Surgical History History of surgery History of surgery on wrist Hx of surgical procedure History of Problems with Anesthesia: No Social History Social History Are you a primary manager urgent care to a significant other at home: No Do you presently have visiting nurse or other home services: No Alcohol intake: current Alcohol intake frequency: former alcohol drinker Alcohol type: beer, wine and hard liquor Patient Tobacco Use Status: Current everyday Tobacco user Tobacco use type: Cigarette Years Smoked: 14 Smoked in Last 30 Days: Yes Patient Interested in Nicotine Replacement: No Use of substances other than those prescribed or required for medical reasons: Yes Substance Use Type: Marijuana Substance Use Frequency: Daily Have you been hit, kicked, punched, or otherwise hurt by someone within the past year? If so, by whom?: No Are you DNR?: No Advance Directives: No Advance Directives Information Provided: No Advance Directives on File: No Recently lost weight without trying: No Eating poorly because of decreased appetite: No Nutrition Risks: No Nutritional Risk Meds Allergies Allergy/AdvReac Type Severity Reaction Status Date / Time No Known Allergies Allergy Verified 11/15/21 14:39 Exam Exam Date and Time: November 22, 2021 0743 Height,Weight and Vital Signs: Height 6 ft Weight 107.048 kg Last Vital Signs Temp 97.5 F 11/22/21 07:20 Pulse 76 11/22/21 07:20 Resp 16 11/22/21 07:20 BP 133/85 11/22/21 07:20 Pulse Ox 94 11/22/21 07:20 Airway Mallampati Class: II TM Dist: >3cm Neck ROM: Full Assessment and Plan Assessment Anesthesia Assessment: Anesthesia Plan Discussed, Smoking Cess. Discussed and Chart Reviewed Final Anesthetic Review Family History of Problems with Anesthesia: No History of Problems with Anesthesia: No NPO: Yes ASA Class: II Final Preanesthetic Review: No Changes in Pt Med Stat, Meds/Allgs Chart Reviewed, Consent Obtained/Reviewed and Anes Risks/Benef Reviewed Patient Risk: Intermediate Procedure Risk: Low Anesthetic Plan Anesthetic Plan: MAC: Disposition: Standard PACU
[2021-11-22] MEDS: Lactated Ringers 1,000 ML 100 ML IVCONT (07:49)
--- NOTE | 2021-11-22 09:47 | W.PM.OPN ---
Operative Note Operative Note Date of Service: 11/22/21 Narrative: Preop diagnosis: right medial thigh cyst with recurrent swelling Postop diagnosis: The same, possible hidradenitis suppurativa Procedure: Excision of right medial thigh cyst under anesthesia Surgeon: Abundio Jimenez The patient is 31-year-old male with anal large induration on the right medial thigh with recurrent swelling and occasional drainage. He wanted to proceed with excision. This seemed to be an dermal cyst versus hidradenitis suppurativa He understood the technique of excision under anesthesia. He was ordered risks, benefits, and alternatives He was brought to the operating room and placed under monitored anesthesia care. He was placed in frogleg position to expose the medial aspect of the right thigh near the groin. The area of induration was seen about 7 cm long about 2 cm wide. A surgical time-out was done. This area was prepped and draped. Lidocaine 1% was used for local anesthesia. I made an elliptical incision in the skin around this area of induration using blade 15. This carried down with electrocautery through the full-thickness of the skin subcutaneous fat to excise this entire area of induration. This was sent as specimen. The excised area was about 7 cm x 2.5 cm . I irrigated this includes incision of full-thickness nylon 3-0 interrupted sutures. The area was infiltrated with Marcaine 0.5% for postop analgesia. Dressings were applied. The procedure was completed . The patient tolerated the procedure well. No complications were noted. Estimated blood loss was about 10 cc. The patient was then transferred to the recovery room with stable vital signs.
[2021-11-22 09:50] VITALS: BP 94/42; PULSE 83; RESP 10; TEMP 36.2; O2SAT 100
[2021-11-22 09:55] VITALS: BP 114/72; PULSE 65; RESP 20; O2SAT 96
[2021-11-22 10:00] VITALS: BP 116/73; PULSE 87; RESP 17; O2SAT 92
[2021-11-22 10:05] VITALS: BP 91/55; PULSE 71; RESP 17; O2SAT 96
[2021-11-22] MEDS: oxyCODONE HCl Immed Release 5 MG TABLET 10 MG PO (10:13)
[2021-11-22 10:21] VITALS: BP 118/72; PULSE 67; RESP 18; TEMP 36.2; O2SAT 98
== END 2021-11-22 10:45 | disposition home or self-care (01) ==
PROVIDERS: PCP Nurse Practitioner Family; Visit Provider Surgery
PROC: (CPT 11406; principal; 2021-11-22 08:30)
DX: L72.0 Epidermal cyst (principal); F17.210 Nicotine dependence, cigarettes, uncomplicated; F12.90 Cannabis use, unspecified, uncomplicated
CPT/HCPCS: 11406; 88304; J0690; J2250; J3010

== ENCOUNTER → 2021-12-02 12:02 | Outpatient (BNVA) | payer MEDICAID, SELFPAY | PROVIDERS: PCP Nurse Practitioner Family; Visit Provider Surgery | DX: Z48.817 Encounter for surgical aftercare following surgery on the skin and subcutaneous tissue (principal) | CPT/HCPCS: 99212 ==

== ENCOUNTER 2021-12-06 18:01 | Emergency (ER) | payer MEDICAID, SELFPAY ==
[2021-12-06 18:30] VITALS: BP 138/87; PULSE 106; RESP 18; TEMP 36.9; O2SAT 98; BMI 32.5
--- NOTE | 2021-12-06 19:34 | ED.SKABFB ---
HPI - Skin/Abscess/Foreign Bdy General Chief complaint: Skin/Abscess/Foreign Body Stated complaint: stitches opened on R leg Time Seen by Provider: 12/06/21 19:34 Source: patient Mode of arrival: ambulatory Limitations: no limitations History of Present Illness HPI narrative: Patient is a 31-year-old male presenting to the emergency department for concern of opened stitches to his right leg. Patient reports that he had a sweat gland removed 1 week ago, and was supposed to follow-up 2 weeks time for removal of sutures. Reports that today while he was lifting something heavy he felt his sutures ?open?. He had some initial drainage from the site when wiping after using the bathroom, uncertain of the color. The area is painful. He denies fevers, chills, chest pain, palpitations, shortness of breath, difficulty breathing, nausea, vomiting, abdominal pain. Related Data Previous Rx's Medication Instructions Recorded albuterol sulfate 90 mcg/actuation 2 puff INHALATION QID PRN #6.7 g 05/08/21 aerosol inhaler ibuprofen 600 mg tablet 600 mg PO Q6H PRN #30 tab 11/22/21 tramadol 50 mg tablet 50 mg PO Q6H PRN #20 tab 11/22/21 cephalexin 500 mg capsule 500 mg PO Q8H 5 Days #15 cap 12/06/21 Allergies Allergy/AdvReac Type Severity Reaction Status Date / Time No Known Allergies Allergy Verified 12/02/21 12:14 Review of Systems Review of Systems: Constitutional : No Fever, No Chills, Cardiovascular : No Chest Pain, No SOB Respiratory : No Dyspnea Gastrointestinal : No abdominal pain Musculoskeletal : No Joint Swelling Skin : No rash, positive surgical incision Neuro : No Weakness, No Numbness Psych : No SI/HI Yes all other systems are reviewed and are negative [facility] Past Medical History Attestation statement: The following information was validated with the patient. Source: old records reviewed Medical History ADD (attention deficit disorder) Epidermal cyst Hx of bronchitis Smoker Surgical History History of surgery History of surgery on wrist Hx of surgical procedure Social History Social History Are you a primary primary care physician to a significant other at home: No Do you presently have visiting nurse or other home services: No Alcohol intake: current Alcohol intake frequency: former alcohol drinker Alcohol type: beer, wine and hard liquor Patient Tobacco Use Status: Current everyday Tobacco user Tobacco use type: Cigarette Years Smoked: 14 Substance Use Type: Marijuana Advance Directives: No Physical Exam Vital Signs: Vital Signs: Last Vital Signs Temp 98.4 F 12/06/21 18:30 Pulse 106 H 12/06/21 18:30 Resp 18 12/06/21 18:30 BP 138/87 12/06/21 18:30 Pulse Ox 98 12/06/21 18:30 BMI result Body Mass Index 32.5 Vital signs have been reviewed and appeared to be correct. Blood pressure normal.? Heart rate mildly elevated 106.? Respiration rate normal. Temperature normal.? Oxygen saturation normal. Appearance: Alert.?Oriented to person, place and time. No acute distress.?Normal affect. Eyes: Pupils equal, round and reactive to light.? ENT: Pharynx normal.?? Neck: Normal inspection.? Neck supple.?? CVS: Heart sounds normal. Normal heart rate and rhythm.? Pulses normal.?? Respiratory: No respiratory distress.? Lung sounds clear to auscultation bilaterally?? Abdomen: Soft and non-tender. ?? Skin: Ayala Will RN present for examination, + right medial thigh surgical incision dehisced. With tenderness to palpation and mild surrounding erythema Extremities: No lower extremity edema.? Neuro: Moves all extremities spontaneously. Sensation intact bilaterally. No focal neuro deficits. Ambulates with normal steady gait. Course Course Course Narrative: Patient is a 31 male presenting to the emergency department for evaluation a surgical incision, with open sutures. Physical exam consistent for dehisced surgical incision, will reach out to on-call surgery for further recommendations. There is mild surrounding erythema, concerning for cellulitis, will plan to treat prophylactically, patient is mildly tachycardic at 106 but I suspect that this is secondary to pain, does not meet SIRS criteria and no concern for sepsis. He is otherwise well appearing, afebrile. Reevaluation(s) Reevaluation #1: Spoke with surgery telecommunications line mechanic Fabiola Mcguire recommend 1/4 inch packing cover with wet gauze and saline and then dry dressing cover and change daily, may shower get the area wet, and follow-up with Dr. Jimenez next week, Cephalexin x5 days for coverage. Wound was cleansed with normal saline, dressing changed as noted above. Discussed plan of care for discharge patient is agreeable with this plan, reviewed reasons to return to the emergency department, and outpatient follow-up with his surgeon. Time: 20:34 Discharge Plan Discharge Clinical Impression: Problem involving surgical incision Patient Disposition: Home, Self-Care Instructions: Surgical Site Infections (ED) Additional Instructions: You may cleanse the area with warm water and soap daily. Dressing changes need to be done daily, apply packing strips as shown while in the emergency department. Cover with a wet gauze and cover with dry gauze. He will need to contact Dr. Jimenez office on Thursday to schedule a follow-up appointment. You may return to the emergency department for any new or worsening symptoms or concerns this might include fevers, chills, increased drainage from the site, increased pain, increased swelling. Prescriptions: New cephalexin 500 mg capsule 500 mg PO Q8H 5 Days Qty: 15 0RF No Action albuterol sulfate 90 mcg/actuation HFA aerosol inhaler 2 puff inhalation QID PRN (Reason: shortness of breath or wheezing) Qty: 6.7 0RF tramadol 50 mg tablet 50 mg PO Q6H PRN (Reason: pain, severe) Qty: 20 0RF ibuprofen 600 mg tablet 600 mg PO Q6H PRN (Reason: pain) Qty: 30 0RF Referrals: Abundio Jimenez MD [Physician] - 5 days Interventions: ED Discharge Assessment Last Done: 12/06/21 22:26 Discharge Date/Time: 12/06/21 22:29
[2021-12-06] MEDS: Ibuprofen 600 MG TABLET PO (22:17)
--- NOTE | 2021-12-06 22:20 | PC.NURSE ---
PT HAS SURGICAL WOUND TO RIGHT THIGH NEAR GROIN AREA. AREA CLEANED AND PACKED BY COTY MARIE. PT APPEARS TO BE DRINK AND CONTINUALLY ASKING RN AND PA TO ASSESS HIS PENIS AND FORESKIN. PT STATES IT DRY AND WANT US TO APPLY LUBE TO THE AREA. RN WITNESS IN ROOM AT ALL TIME. PT GIVEN GIVEN BACITRACIN TO APPLY TO GENITAL AREA SELF.
== END 2021-12-06 22:29 | disposition home or self-care (01) ==
PROVIDERS: Emergency Provider Emergency Medicine; PCP Nurse Practitioner Family
DX: Z48.01 Encounter for change or removal of surgical wound dressing (principal); F17.200 Nicotine dependence, unspecified, uncomplicated; F12.90 Cannabis use, unspecified, uncomplicated; R00.0 Tachycardia, unspecified
CPT/HCPCS: 99283; 99284

== ENCOUNTER → 2021-12-12 15:04 | Outpatient (BNVA) | payer MEDICAID, SELFPAY | PROVIDERS: Visit Provider Surgery | DX: Z48.817 Encounter for surgical aftercare following surgery on the skin and subcutaneous tissue (principal); Z87.2 Personal history of diseases of the skin and subcutaneous tissue | CPT/HCPCS: 99212 ==

== ENCOUNTER 2022-01-03 07:36 | Outpatient (REF) | payer MEDICAID, SELFPAY | END 2022-01-03 07:37 | disposition home or self-care (01) | LOC: HO.HOSX 07:36 | PROVIDERS: Visit Provider Physician Assistant | DX: Z13.89 Encounter for screening for other disorder (principal) ==

== ENCOUNTER 2022-01-03 10:50 | Outpatient (REF) | payer MEDICAID, SELFPAY ==
[2022-01-03 11:27] LABS: COVID-19 Test Negative (Negative); IDNOW Serial# 16C4AD1C
== END 2022-01-03 10:51 | disposition home or self-care (01) ==
LOC: HO.LAB 10:50
PROVIDERS: Visit Provider Internal Medicine
DX: Z20.822 Contact with and (suspected) exposure to COVID-19 (principal)
CPT/HCPCS: 87635; C9803

== ENCOUNTER 2022-04-02 15:15 | Emergency (ER) | payer MEDICAID, SELFPAY ==
--- NOTE | ~2022-04-02 | XR_ITS ---
EXAMINATION: XR CHEST CLINICAL INFORMATION: Cough COMPARISON: Previous chest x-ray May 2021 TECHNIQUE: 2 views of the chest were obtained. FINDINGS: No significant abnormality is noted involving the heart, lungs, mediastinum, bony thorax or soft tissues. XR/XR chest 2V IMPRESSION: Unremarkable examination.
--- NOTE | 2022-04-02 15:18 | ECG_ITS ---
Test Reason : cp Blood Pressure : / mmHG Vent. Rate : 090 BPM Atrial Rate : 090 BPM P-R Int : 148 ms QRS Dur : 106 ms QT Int : 364 ms P-R-T Axes : 074 011 050 degrees QTc Int : 445 ms Normal sinus rhythm Normal ECG No previous ECGs available Referred By: Generic ED Physician Electronically Signed By:MAGDALENA JAUREGUI MD
[2022-04-02 15:20] VITALS: BP 127/72; PULSE 83; RESP 18; TEMP 37.1; O2SAT 94; BMI 31.1
[2022-04-02 15:37] LABS: MANUAL DIFF FLAG NO
[2022-04-02 15:39] LABS: Basophils Absolute Auto 0.1 X10*3/uL (0.0-0.2); Basophils Percent Auto 0.6 % (0-2); Eosinophils Absolute Auto 0.3 X10*3/uL (0.0-0.4); Eosinophils Percent Auto 2.7 % (0-4); Imm Gran Abs Auto 0.03 X10*3/uL (0.00-0.03); Imm Gran Pct Auto 0.3 % (0.0-0.4); Lymphocytes Absolute Auto 2.5 X10*3/uL (1.2-4.9); Lymphocytes Percent Auto 21.5 % (20-40); Mean Corpuscular HGB Conc 34.1 g/dl (31.0-36.0); Mean Corpuscular Hemoglobin 29.5 pg (27.0-33.0); Mean Corpuscular Volume 86.4 fL (80.0-98.0); Mean Platelet Volume 10.5 fL (9.4-12.4); Monocytes Absolute Auto 0.9 X10*3/uL (0.1-1.2); Monocytes Percent Auto 7.9 % (2-11); Neutrophils Absolute Auto 7.7 x10*3/uL (2.0-8.3); Platelet Count 260 X10*3/uL (160-400); Red Blood Count 5.09 X10*6/uL (4.60-5.80); Red Cell Distribution Width 12.9 % (11.0-16.0); White Blood Count 11.5 X10*3/uL (4.8-10.8)
[2022-04-02 15:44] LABS: INTERNATIONAL NORM RATIO 1.1 (0.9-1.1); Prothrombin Time 12.8 SEC (10.0-13.1)
[2022-04-02 15:58] LABS: Alanine Aminotransferase 27 U/L (0-40); Albumin Level 4.3 g/dL (3.5-5.0); Alkaline Phosphatase 83 U/L (39-117); Anion Gap 12 (12-20); Aspartate Amino Transferase 33 U/L (5-37); Bilirubin Total 0.6 mg/dL (0.0-1.0); Blood Urea Nitrogen 13 mg/dL (9-16); Carbon Dioxide 26 mmol/L (22-29); Chloride 107 mmol/L (96-108); Creatinine Clr Calc Pharmacy 114.2; Estimated Glomerular Filt Rate > 60; Glucose Random 111 mg/dL (60-115); Potassium 3.8 mmol/L (3.3-5.1); Sodium 141 mmol/L (135-145); Total Protein 7.5 g/dL (6.5-8.0)
[2022-04-02 16:04] LABS: Troponin-I High Sensitivity < 3.5 ng/L (<3.5-35.0)
[2022-04-02 20:00] VITALS: BP 134/78; PULSE 85; RESP 15; TEMP 36.6; O2SAT 95
[2022-04-02 22:04] LABS: D Dimer High Sensitivity < 150 NG/ML; Partial Thromboplastin Time 34.4 SEC (24.1-38.0)
[2022-04-02 22:11] LABS: COVID-19 Test Negative (Negative); IDNOW Serial# 08D9AD1C
--- NOTE | 2022-04-02 22:17 | ED_ITS ---
HPI - General Adult General Chief complaint: GI Bleed Stated complaint: chestpain, coughing up blood Time Seen by Provider: 04/02/22 18:40 Source: patient Mode of arrival: ambulatory Limitations: no limitations History of Present Illness HPI narrative: 31-year-old male presents to ED for coughing and chest pain for the past 2 days with episode of coughing up slight tinge of blood. Patient denies any pleurisy, leg swelling, calf pain, abdominal pain, nausea, vomiting, recent long travel, recent surgery, estrogen hormone use, or any history of blood clots. Patient states 1 episode of tinge of blood in stool and napkin while using the bathroom this morning. Patient states stool was brown. Patient denies having any episodes of bleeding in stool since this morning. Patient denies any recent trauma, drinking alcohol, over use of Motrin or any other NSAID. Patient denies history of ulcers. Related Data Previous Rx's Medication Instructions Recorded albuterol sulfate 90 mcg/actuation 2 puff inhalation QID PRN 05/08/21 aerosol inhaler shortness of breath or wheezing #6.7 grams ibuprofen 600 mg tablet 600 mg PO Q6H PRN pain #30 tabs 11/22/21 tramadol 50 mg tablet 50 mg PO Q6H PRN pain, severe #20 11/22/21 tabs cephalexin 500 mg capsule 500 mg PO Q8H 5 days #15 caps 12/06/21 albuterol sulfate 90 mcg/actuation 2 puff inhalation Q6H PRN 04/02/22 aerosol inhaler shortness of breath or wheezing #8.5 grams azithromycin 250 mg tablet See Rx Instructions PO .COMPLEX #6 04/02/22 tabs benzonatate 100 mg capsule 100 mg PO TID PRN cough 5 days #15 04/02/22 caps Allergies Allergy/AdvReac Type Severity Reaction Status Date / Time No Known Allergies Allergy Verified 04/02/22 15:20 Review of Systems Review of Systems: coughing, and chest pain for 2 days. hempotysis once. rectal bleeding once Yes all other systems are reviewed and are negative PMFSH Past Medical History Medical History ADD (attention deficit disorder) Epidermal cyst Hx of bronchitis Smoker Surgical History History of surgery History of surgery on wrist Hx of surgical procedure Social History Social History Are you a primary adult day care worker to a significant other at home: No Do you presently have visiting nurse or other home services: No Alcohol intake: former Patient Tobacco Use Status: Current everyday Tobacco user Tobacco use type: Cigarette Years Smoked: 14 Use of substances other than those prescribed or required for medical reasons: Yes Substance Use Type: Marijuana Substance Use Frequency: Daily Advance Directives: No Advance Directives Information Provided: No Physical Exam ED Vital Signs: Vital Signs - 24 hr 04/02/22 15:20 04/02/22 20:00 Temperature 98.7 F 97.8 F Pulse Rate 83 85 Respiratory Rate 18 15 Blood Pressure 127/72 134/78 Pulse Oximetry 94 95 Oxygen Delivery Method Room Air Room Air BMI result Body Mass Index 31.1 Const General: cooperative, healthy appearing, comfortable, no acute distress, well developed, alert, awake and Physically active Orientation/consciousness: oriented to person, oriented to place, oriented to time and patient oriented x3 HENMT Head: Yes normal to inspection, Yes No palpable skull fracture present, Yes normocephalic, Yes atraumatic and No abrasion Eyes General: appearance normal, both eyes and all related structures Neck Neck: Yes normal visual inspection, Yes full ROM, Yes no lymphadenopathy, Yes no meningeal signs, Yes trachea midline, Yes supple, No anterior neck swelling and No tender Chest Chest palpation & inspection: normal inspection of the chest and normal palpation of entire chest wall Resp Effort & Inspection: normal respiratory effort and able to speak in complete sentences Auscultation: clear to auscultation bilaterally Cardio Jugular venous distension: no JVD Heart sounds: S1 normal heart sound present and S2 normal heart sound present GI Inspection: Yes normal to inspection and No abdominal wall ecchymosis Palpation (GI): Soft to palpation, not firm, nontender, no guarding and not rigid General: No CVA tenderness and Yes no CVA tenderness Back/Spine/Pelvis Back: no CVA tenderness, No CVA tenderness and No back tenderness Skin General skin exam: no rashes or lesions noted and elasticity normal Neuro General: oriented to person, oriented to place, oriented to time, patient oriented x3, gait normal, tone normal, moves all extremities, Normal light touch and pain sensation, no meningeal signs, no focal motor deficits and CN's II-XI intact bilaterally Extrem Other: Lower extremity negative for swelling, pitting edema, calf tenderness General: Yes normal to inspection and Yes full ROM Psych Appearance: grossly normal, well kempt and not disheveled Course Course Course Narrative: EKG chest x-ray and troponin ordered. COVID s Reevaluation(s) Reevaluation #1: EKG negative STEMI. Troponin after coughing and chest pain for 2 days negative. BNP negative for heart failure. Chest x-ray negative for pneumonia or signs of heart failure. D-dimer negative. Perc score 1. Patient safe for discharge. Patient refused rectal exam. Patient denies any rectal hemorrhaging or black stool. Denies any abdominal pain. Patient educted on GI bleed symptoms. Time: 22:55 Medical Decision Making MDM Narrative Medical decision making narrative: bronchitis Lab Data Result diagrams: 04/02/22 15:29 04/02/22 15:29 Labs: Lab Results 04/02/22 04/02/22 04/02/22 Range/Units 15:29 15:29 15:29 WBC 11.5 H (4.8-10.8) X10*3/uL RBC 5.09 (4.60-5.80) X10*6/uL Hgb 15.0 (14.0-18.0) g/dl Hct 44.0 (42.0-52.0) % MCV 86.4 (80.0-98.0) fL MCH 29.5 (27.0-33.0) pg MCHC 34.1 (31.0-36.0) g/dl RDW 12.9 (11.0-16.0) % Plt Count 260 (160-400) X10*3/uL MPV 10.5 (9.4-12.4) fL Immature Gran % (Auto) 0.3 (0.0-0.4) % Neut % (Auto) 67.0 (45-73) % Lymph % (Auto) 21.5 (20-40) % [place] % (Auto) 7.9 (2-11) % Eos % (Auto) 2.7 (0-4) % Baso % (Auto) 0.6 (0-2) % Lymph # (Auto) 2.5 (1.2-4.9) X10*3/uL [place] # (Auto) 0.9 (0.1-1.2) X10*3/uL Eos # (Auto) 0.3 (0.0-0.4) X10*3/uL Baso # (Auto) 0.1 (0.0-0.2) X10*3/uL Abs Immat Gran (auto) 0.03 (0.00-0.03) X10*3/uL Absolute Neuts (auto) 7.7 (2.0-8.3) x10*3/uL Absolute Nucleated RBC 0.000 (0.0-0.012) X10*3/uL Nucleated RBC % (auto) 0.0 (0.0-0.2) /100WBC PT 12.8 (10.0-13.1) SEC INR 1.1 (0.9-1.1) APTT (24.1-38.0) SEC D-Dimer High Sensitivty NG/ML Sodium 141 (135-145) mmol/L Potassium 3.8 (3.3-5.1) mmol/L Chloride 107 (96-108) mmol/L Carbon Dioxide 26 (22-29) mmol/L Anion Gap 12 (12-20) BUN 13 (9-16) mg/dL Creatinine 1.17 (0.5-1.4) mg/dL Estim Creat Clear Calc 114.2 Estimated GFR > 60 Random Glucose 111 (60-115) mg/dL Calcium 9.0 (8.4-10.2) mg/dL Total Bilirubin 0.6 (0.0-1.0) mg/dL AST 33 D (5-37) U/L ALT 27 (0-40) U/L Alkaline Phosphatase 83 (39-117) U/L Troponin I High Sens (<3.5-35.0) ng/L B-Natriuretic Peptide (<100) pg/mL Total Protein 7.5 (6.5-8.0) g/dL Albumin 4.3 (3.5-5.0) g/dL COVID-19 ([facility]) (Negative) COVID-19 Clin Com 04/02/22 04/02/22 04/02/22 Range/Units 15:29 21:47 21:47 WBC (4.8-10.8) X10*3/uL RBC (4.60-5.80) X10*6/uL Hgb (14.0-18.0) g/dl Hct (42.0-52.0) % MCV (80.0-98.0) fL MCH (27.0-33.0) pg MCHC (31.0-36.0) g/dl RDW (11.0-16.0) % Plt Count (160-400) X10*3/uL MPV (9.4-12.4) fL Immature Gran % (Auto) (0.0-0.4) % Neut % (Auto) (45-73) % Lymph % (Auto) (20-40) % [place] % (Auto) (2-11) % Eos % (Auto) (0-4) % Baso % (Auto) (0-2) % Lymph # (Auto) (1.2-4.9) X10*3/uL [place] # (Auto) (0.1-1.2) X10*3/uL Eos # (Auto) (0.0-0.4) X10*3/uL Baso # (Auto) (0.0-0.2) X10*3/uL Abs Immat Gran (auto) (0.00-0.03) X10*3/uL Absolute Neuts (auto) (2.0-8.3) x10*3/uL Absolute Nucleated RBC (0.0-0.012) X10*3/uL Nucleated RBC % (auto) (0.0-0.2) /100WBC PT (10.0-13.1) SEC INR (0.9-1.1) APTT 34.4 (24.1-38.0) SEC D-Dimer High Sensitivty < 150 NG/ML Sodium (135-145) mmol/L Potassium (3.3-5.1) mmol/L Chloride (96-108) mmol/L Carbon Dioxide (22-29) mmol/L Anion Gap (12-20) BUN (9-16) mg/dL Creatinine (0.5-1.4) mg/dL Estim Creat Clear Calc Estimated GFR Random Glucose (60-115) mg/dL Calcium (8.4-10.2) mg/dL Total Bilirubin (0.0-1.0) mg/dL AST (5-37) U/L ALT (0-40) U/L Alkaline Phosphatase (39-117) U/L Troponin I High Sens < 3.5 (<3.5-35.0) ng/L B-Natriuretic Peptide < 10 (<100) pg/mL Total Protein (6.5-8.0) g/dL Albumin (3.5-5.0) g/dL COVID-19 ([facility]) (Negative) COVID-19 Clin Com 04/02/22 Range/Units 21:51 WBC (4.8-10.8) X10*3/uL RBC (4.60-5.80) X10*6/uL Hgb (14.0-18.0) g/dl Hct (42.0-52.0) % MCV (80.0-98.0) fL MCH (27.0-33.0) pg MCHC (31.0-36.0) g/dl RDW (11.0-16.0) % Plt Count (160-400) X10*3/uL MPV (9.4-12.4) fL Immature Gran % (Auto) (0.0-0.4) % Neut % (Auto) (45-73) % Lymph % (Auto) (20-40) % [place] % (Auto) (2-11) % Eos % (Auto) (0-4) % Baso % (Auto) (0-2) % Lymph # (Auto) (1.2-4.9) X10*3/uL [place] # (Auto) (0.1-1.2) X10*3/uL Eos # (Auto) (0.0-0.4) X10*3/uL Baso # (Auto) (0.0-0.2) X10*3/uL Abs Immat Gran (auto) (0.00-0.03) X10*3/uL Absolute Neuts (auto) (2.0-8.3) x10*3/uL Absolute Nucleated RBC (0.0-0.012) X10*3/uL Nucleated RBC % (auto) (0.0-0.2) /100WBC PT (10.0-13.1) SEC INR (0.9-1.1) APTT (24.1-38.0) SEC D-Dimer High Sensitivty NG/ML Sodium (135-145) mmol/L Potassium (3.3-5.1) mmol/L Chloride (96-108) mmol/L Carbon Dioxide (22-29) mmol/L Anion Gap (12-20) BUN (9-16) mg/dL Creatinine (0.5-1.4) mg/dL Estim Creat Clear Calc Estimated GFR Random Glucose (60-115) mg/dL Calcium (8.4-10.2) mg/dL Total Bilirubin (0.0-1.0) mg/dL AST (5-37) U/L ALT (0-40) U/L Alkaline Phosphatase (39-117) U/L Troponin I High Sens (<3.5-35.0) ng/L B-Natriuretic Peptide (<100) pg/mL Total Protein (6.5-8.0) g/dL Albumin (3.5-5.0) g/dL COVID-19 (EM[facility]) Negative (Negative) COVID-19 Clin Com See Note ECG Data Interpretation: normal sinus rhythm. Normal EKG. Ventricular rate 90. Pr interval 148. QRS 106. QTC 445. Negative STEMI Discharge Plan Discharge Clinical Impression: Bronchitis, Rectal bleeding Patient Disposition: Home, Self-Care Instructions: Rectal Bleeding (ED), Acute Bronchitis (ED) Additional Instructions: chest x-ray blood work and EKG came back negative for signs of heart failure, heart attack, COVID, risk of blood clot. He will be discharged with albuterol inhaler, antibiotics, and cough medication. return to the ED immediately for any vomiting blood, rectal bleeding, black stool, chest pain, shortness of breath, coughing up blood, leg swelling, calf pain, chest pain on inspiration, or any other concerning symptoms. Please follow-up with primary care provider. Prescriptions: New albuterol sulfate 90 mcg/actuation HFA aerosol inhaler 2 puff inhalation Q6H PRN (Reason: shortness of breath or wheezing) Qty: 8.5 0RF azithromycin 250 mg tablet See Rx Instructions .ROUTE .COMPLEX Qty: 6 0RF Rx Instructions: For 250 mg dose pack: take 500 mg today (day 1), then 250 mg for 4 days (days 2-5) benzonatate 100 mg capsule 100 mg PO TID PRN (Reason: cough) 5 Days Qty: 15 0RF No Action albuterol sulfate 90 mcg/actuation HFA aerosol inhaler 2 puff inhalation QID PRN (Reason: shortness of breath or wheezing) Qty: 6.7 0RF tramadol 50 mg tablet 50 mg PO Q6H PRN (Reason: pain, severe) Qty: 20 0RF ibuprofen 600 mg tablet 600 mg PO Q6H PRN (Reason: pain) Qty: 30 0RF cephalexin 500 mg capsule 500 mg PO Q8H 5 Days Qty: 15 0RF Stand Alone Forms: Work/School Release Interventions: ED Discharge Assessment Last Done: 04/02/22 23:07 Discharge Date/Time: 04/02/22 23:07 Print Language: Wolof
[2022-04-02 22:26] LABS: B Type Natriuretic Peptide < 10 pg/mL (<100)
== END 2022-04-02 23:07 | disposition home or self-care (01) ==
PROVIDERS: Physician Assistant; Emergency Provider Student in an Organized Health Care Education/Training Program
DX: J40 Bronchitis, not specified as acute or chronic (principal); K62.5 Hemorrhage of anus and rectum; F17.210 Nicotine dependence, cigarettes, uncomplicated; F12.90 Cannabis use, unspecified, uncomplicated; Z20.822 Contact with and (suspected) exposure to COVID-19
CPT/HCPCS: 36415; 71046; 80053; 83880; 84484; 85025; 85379; 85610; 85730; 87635; 93005; 99283; 99285

== ENCOUNTER 2022-04-17 15:10 | Outpatient (REF) | payer MEDICAID, SELFPAY ==
[2022-04-17 15:59] LABS: COVID-19 Test Negative (Negative); IDNOW Serial# 16C4AD1C
== END 2022-04-17 15:11 | disposition home or self-care (01) ==
LOC: HO.LAB 15:10
PROVIDERS: Visit Provider Internal Medicine
DX: Z20.822 Contact with and (suspected) exposure to COVID-19 (principal)
CPT/HCPCS: 87635; C9803

== ENCOUNTER 2022-07-25 19:56 | Emergency (ER) | payer OTHER, SELFPAY ==
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
[2022-07-25 20:07] VITALS: BP 126/75; BP 155/88; PULSE 86; PULSE 91; RESP 18; TEMP 37.2; O2SAT 96; O2SAT 98; BMI 32.1
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
--- OUTSIDE RECORDS SUMMARY | 2022-07-25 20:33 | XMS_ITS | Continuity of Care Document ---
:1990 Author Organization [facility] Address [address] [place] [address]- Care Team Providers Name Role Phone Lucio CARVAJAL, Rosi Perry Primary Care Physician En[place] [facility] [place](s): 12/03/20 - 12/03/[address] [address]- Encounter Diagnosis Neck pain (Final) - 12/03/20 Discharge Disposition: A-D/C Home Attending Physician: Kelsie Yeung MD Admitting Physician: Kelsie Yeung MD Referring Physician: Not on Staff, Referring MD Allergies, Adverse Reactions, Alerts Substance Reaction Severity Status NKA Active Medications lidocaine 4% topical cream 1 application, Topically, 3 times a day, for 7 days, # 30 Gm, 0 Refills, Acute 12/10/20 20:41:00 EDT, 12/03/20 20:41:00 EDT, Cream, [id number], Partial fill upon patient request if the prescription is for a schedule II opioid drug., 1 applicat... Start Date: 12/03/20 Stop Date: 12/10/20 Status: Ordered Vital Signs Most recent to oldest 1 2 3 [Reference Range]: Height 183 cm 183 cm (12/03/20 8:21 PM) (12/03/20 6:05 PM) Weight 107.2 kg 107.2 kg (12/03/20 8:21 PM) (12/03/20 6:05 PM) Oxygen Saturation [94-100 %] 100 % 100 % 100 % (12/03/20 8:21 PM) (12/03/20 6:05 PM) (12/03/20 4:2 1 PM) Pulse Rate [55-90 bpm] 79 bpm 83 bpm 102 bpm (12/03/20 8:21 PM) (12/03/20 6:05 PM) *H* (12/03/20 4:21 PM ) Body Mass Index [18.5-24.99] 32.01 32.01 *>HHI* *>HHI* (12/03/20 8:21 PM) (12/03/20 6:05 PM) Blood Pressure [90-138/55-84 mm 139/77 mm Hg 146/79 mm Hg Hg] *H* *H* (12/03/20 8:21 PM) (12/03/20 6:05 PM) Respiratory Rate [16-30 br/min] 20 br/min 16 br/min (12/03/20 8:21 PM) (12/03/20 6:05 PM) Temperature [96.8-100.4 DegF] 97.8 DegF 97.9 DegF (12/03/20 8:21 PM) (12/03/20 6:05 PM) Mode of Delivery (Oxygen) Room air Room air Room a ir (12/03/20 8:21 PM) (12/03/20 6:05 PM) (12/03/20 4:2 1 PM) Blood pressure sites Arm, right Arm, right (12/03/20 8:21 PM) (12/03/20 6:05 PM) Temperature Route Oral Oral (12/03/20 8:21 PM) (12/03/20 6:05 PM) Dry Weight 107.2 kg 107.2 kg (12/03/20 8:21 PM) (12/03/20 6:05 PM) Weight Obtained Via Standing scale (12/03/20 6:05 PM) Dry Weight Obtained Via Standing scale (12/03/20 6:05 PM)
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
[2022-07-25] MEDS: Ibuprofen 600 MG TABLET PO (22:14)
[2022-07-25 23:30] VITALS: BP 126/82; PULSE 89; RESP 16; TEMP 36.6; O2SAT 98
== END 2022-07-25 23:46 | disposition home or self-care (01) ==
PROVIDERS: Emergency Provider Student in an Organized Health Care Education/Training Program; PCP Registered Nurse
DX: R51.9 Headache, unspecified (principal); M54.2 Cervicalgia; M25.572 Pain in left ankle and joints of left foot; M54.50 Low back pain, unspecified; Z79.899 Other long term (current) drug therapy
CPT/HCPCS: 72100; 72125; 73610; 99284

== ENCOUNTER 2022-07-30 02:24 | Emergency (ER) | payer OTHER, MEDICAID, SELFPAY ==
[2022-07-30 02:31] VITALS: BP 137/74; PULSE 75; RESP 18; TEMP 36.4; O2SAT 99; BMI 32.1
[2022-07-30 02:45] LABS: Basophils Absolute Auto 0.1 X10*3/uL (0.0-0.2); Basophils Percent Auto 0.7 % (0-2); Eosinophils Absolute Auto 0.7 X10*3/uL (0.0-0.4); Eosinophils Percent Auto 5.2 % (0-4); Hematocrit 50.4 % (42.0-52.0); Hemoglobin 16.5 g/dl (14.0-18.0); Imm Gran Abs Auto 0.04 X10*3/uL (0.00-0.03); Imm Gran Pct Auto 0.3 % (0.0-0.4); Lymphocytes Absolute Auto 4.5 X10*3/uL (1.2-4.9); Lymphocytes Percent Auto 34.9 % (20-40); MANUAL DIFF FLAG NO; Mean Corpuscular HGB Conc 32.7 g/dl (31.0-36.0); Mean Corpuscular Hemoglobin 29.6 pg (27.0-33.0); Mean Corpuscular Volume 90.3 fL (80.0-98.0); Mean Platelet Volume 10.1 fL (9.4-12.4); Monocytes Percent Auto 7.5 % (2-11); Neutrophils Absolute Auto 6.6 x10*3/uL (2.0-8.3); Neutrophils Percent Auto 51.4 % (45-73); Platelet Count 286 X10*3/uL (160-400); Red Blood Count 5.58 X10*6/uL (4.60-5.80); Red Cell Distribution Width 13.9 % (11.0-16.0); White Blood Count 12.8 X10*3/uL (4.8-10.8)
[2022-07-30 03:09] LABS: Alanine Aminotransferase 27 U/L (0-40); Alkaline Phosphatase 71 U/L (39-117); Anion Gap 14 (12-20); Aspartate Amino Transferase 28 U/L (5-37); Bilirubin Total 0.4 mg/dL (0.0-1.0); Blood Urea Nitrogen 13 mg/dL (9-16); Calcium 9.1 mg/dL (8.4-10.2); Carbon Dioxide 22 mmol/L (22-29); Chloride 108 mmol/L (96-108); Creatinine Clr Calc Pharmacy 131.6; Estimated Glomerular Filt Rate > 60; Glucose Random 128 mg/dL (60-115); Sodium 140 mmol/L (135-145); Total Protein 7.1 g/dL (6.5-8.0)
[2022-07-30 04:30] VITALS: BP 122/74; PULSE 80; RESP 16; TEMP 36.7; O2SAT 96
[2022-07-30] MEDS: diphenhydrAMINE HCL 25 MG CAPSULE PO (04:42)
[2022-07-30] MEDS: predniSONE 20 MG TABLET 60 MG PO (04:42)
--- NOTE | 2022-07-30 04:45 | PC.NURSE ---
Pt a&o, no sob or chest pain. pt medicated for Rash on upper extremities. Pt requesting to go home due to having to be at work at 6am. Provider is aware.
--- NOTE | 2022-07-30 05:01 | ED_ITS ---
HPI - General Adult General Chief complaint: Skin/Abscess/Foreign Body Stated complaint: Rash Time Seen by Provider: 07/30/22 03:49 Source: patient Mode of arrival: ambulatory Limitations: no limitations History of Present Illness HPI narrative: 32-year-old male came in for evaluation of itching of both arms for 4 days. 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 No sore throat, no voice change, no shortness of breath. Related Data Previous Rx's Medication Instructions Recorded albuterol sulfate 90 mcg/actuation 2 puff inhalation QID PRN 05/08/21 aerosol inhaler shortness of breath or wheezing #6.7 grams ibuprofen 600 mg tablet 600 mg PO Q6H PRN pain #30 tabs 11/22/21 tramadol 50 mg tablet 50 mg PO Q6H PRN pain, severe #20 11/22/21 tabs cephalexin 500 mg capsule 500 mg PO Q8H 5 days #15 caps 12/06/21 albuterol sulfate 90 mcg/actuation 2 puff inhalation Q6H PRN 04/02/22 aerosol inhaler shortness of breath or wheezing #8.5 grams azithromycin 250 mg tablet See Rx Instructions PO .COMPLEX #6 04/02/22 tabs benzonatate 100 mg capsule 100 mg PO TID PRN cough 5 days #15 04/02/22 caps ibuprofen 600 mg tablet 600 mg PO Q8H PRN pain #20 tabs 07/25/22 diphenhydramine HCl 25 mg capsule 25 mg PO TID PRN itching #30 caps 07/30/22 (Benadryl) prednisone 20 mg tablet 20 mg PO BID #10 tabs 07/30/22 Allergies Allergy/AdvReac Type Severity Reaction Status Date / Time No Known Allergies Allergy Verified 04/02/22 15:20 Review of Systems Review of Systems: All other systems are reviewed and are negative Constitutional: Reports as per HPI and Reports no additional constitutional complaints Eyes: Reports as per HPI and Reports no additional eye complaints Reports system reviewed and no additional complaints, except as documented Cardiovascular: Reports as per HPI and Reports no additional cardiovascular complaints Respiratory: Reports as per HPI and Reports no additional respiratory complaints Gastrointestinal: Reports as per HPI and Reports no additional gastrointestinal complaints Genitourinary: Reports no additional female genitourinary complaints Musculoskeletal: Reports no additional musculoskeletal complaints Skin/Breast: Reports system reviewed and no additional complaints, except as docu Psychiatric: Reports no additional psychiatric complaints Endocrine: Reports no additional endocrine complaints Hematologic/Lymphatic: Reports no additional hematologic/lymphatic complaints Allergic/Immunologic: Reports no additional allergic/immunologic complaints Reports system reviewed and no additional complaints, except as documented and Reports Abnormal speech present [facility] Past Medical History Medical History ADD (attention deficit disorder) Epidermal cyst Hx of bronchitis Smoker Surgical History History of surgery History of surgery on wrist Hx of surgical procedure Social History Social History Are you a primary critical care educator to a significant other at home: No Do you presently have visiting nurse or other home services: No Alcohol intake: former Patient Tobacco Use Status: Current everyday Tobacco user Tobacco use type: Cigarette Years Smoked: 14 Use of substances other than those prescribed or required for medical reasons: No Substance Use Type: Marijuana Advance Directives: No Advance Directives Information Provided: No Physical Exam ED Vital Signs: Vital Signs - 24 hr 07/30/22 02:31 07/30/22 04:30 Temperature 97.5 F 98.1 F Pulse Rate 75 80 Respiratory Rate 18 16 Blood Pressure 137/74 122/74 Pulse Oximetry 99 96 Oxygen Delivery Method Room Air Room Air BMI result Body Mass Index 32.1 vital signs have been reviewed as appeared to be correct. Blood pressure normal. Heart rate normal. Respiration rate normal. Temperature normal. Oxygen saturation normal. Appearance: Alert. Oriented X3. No acute distress. Head: Normal external exam. Normocephalic. Atraumatic. No Ronquillo signs noted. No raccoon eyes noted Eyes: PERRLA. EOMI. Conjunctiva and sclera normal. Eyelids normal. ENT: TM's Normal. Pharynx normal. Uvula midline. Moist mucous membranes. No trismus noted. No drooling noted. No muffled voice noted. Neck: Normal inspection. Neck supple. FROM. No adenopathy. Thyroid Normal. No meningeal signs. No neck mass noted. CVS: Normal heart rate and rhythm. Heart sound normal. No murmurs noted. Pulses normal throughout. Respiratory: No respiratory distress. Painless inspiration. Breath sounds normal. No wheezes/rales/rhonchi noted. Chest nontender. No accessory muscle usage noted or decreased air movement noted. Abdomen: Soft and nontender. Bowel sounds normal in all 4 quadrants. No distention noted. No organomegaly noted. No visible injury noted. Back: No CVA tenderness. Full range of motion noted. Skin: Skin warm and dry. Normal skin color. Normal skin turgor. No rashes/lesions/lacerations noted. Extremities: Areas of hives on both arms, neurovascularly intact on both arms. Neuro: Oriented X 3. Cranial nerve exam: II-XII are grossly intact No motor deficit. No sensory deficit. Reflexes normal. Course Course Course Narrative: Patient received Benadryl and prednisone in the ED rash are fading with decrease itching. Will start the patient on course of prednisone, patient cannot climb a tree while is taking Benadryl because the drowsiness patient was given excuse note for work and he verbalized full understanding of my instructions. Medications Administered Discontinued Medications Generic Name Dose Route Start Last Admin Trade Name Freq PRN Reason Stop Dose Admin Diphenhydramine HCl 25 mg 07/30/22 03:49 07/30/22 04:42 Diphenhydramine Hcl 25 Mg Capsule PO 07/30/22 03:50 25 mg ONCE ONE Administration Prednisone 60 mg 07/30/22 03:49 07/30/22 04:42 Prednisone 20 Mg Tablet PO 07/30/22 03:50 60 mg ONCE ONE Administration Medical Decision Making Lab Data Lab results reviewed: Yes I reviewed the patient's lab results. Result diagrams: 07/30/22 02:38 07/30/22 02:38 Labs: Lab Results 07/30/22 07/30/22 Range/Units 02:38 02:38 WBC 12.8 H (4.8-10.8) X10*3/uL RBC 5.58 (4.60-5.80) X10*6/uL Hgb 16.5 (14.0-18.0) g/dl Hct 50.4 (42.0-52.0) % MCV 90.3 (80.0-98.0) fL MCH 29.6 (27.0-33.0) pg MCHC 32.7 (31.0-36.0) g/dl RDW 13.9 (11.0-16.0) % Plt Count 286 (160-400) X10*3/uL MPV 10.1 (9.4-12.4) fL Immature Gran % (Auto) 0.3 (0.0-0.4) % Neut % (Auto) 51.4 (45-73) % Lymph % (Auto) 34.9 (20-40) % Larue % (Auto) 7.5 (2-11) % Eos % (Auto) 5.2 H (0-4) % Baso % (Auto) 0.7 (0-2) % Lymph # (Auto) 4.5 (1.2-4.9) X10*3/uL Larue # (Auto) 1.0 (0.1-1.2) X10*3/uL Eos # (Auto) 0.7 H (0.0-0.4) X10*3/uL Baso # (Auto) 0.1 (0.0-0.2) X10*3/uL Abs Immat Gran (auto) 0.04 H (0.00-0.03) X10*3/uL Absolute Neuts (auto) 6.6 (2.0-8.3) x10*3/uL Absolute Nucleated RBC 0.000 (0.0-0.012) X10*3/uL Nucleated RBC % (auto) 0.0 (0.0-0.2) /100WBC Sodium 140 (135-145) mmol/L Potassium 4.0 (3.3-5.1) mmol/L Chloride 108 (96-108) mmol/L Carbon Dioxide 22 (22-29) mmol/L Anion Gap 14 (12-20) BUN 13 (9-16) mg/dL Creatinine 0.99 (0.5-1.4) mg/dL Estim Creat Clear Calc 131.6 Estimated GFR > 60 Random Glucose 128 H (60-115) mg/dL Calcium 9.1 (8.4-10.2) mg/dL Total Bilirubin 0.4 (0.0-1.0) mg/dL AST 28 (5-37) U/L ALT 27 (0-40) U/L Alkaline Phosphatase 71 (39-117) U/L Total Protein 7.1 (6.5-8.0) g/dL Albumin 4.0 (3.5-5.0) g/dL Discharge Plan Discharge Clinical Impression: Urticaria Patient Disposition: Home, Self-Care Instructions: Urticaria (ED) Additional Instructions: Do not climb trees especially after taking Benadryl which may make you drowsy and risk for fall. Prescriptions: New prednisone 20 mg tablet 20 mg PO BID Qty: 10 0RF diphenhydramine HCl [Benadryl] 25 mg capsule 25 mg PO TID PRN (Reason: itching) Qty: 30 0RF No Action albuterol sulfate 90 mcg/actuation HFA aerosol inhaler 2 puff inhalation QID PRN (Reason: shortness of breath or wheezing) Qty: 6.7 0RF tramadol 50 mg tablet 50 mg PO Q6H PRN (Reason: pain, severe) Qty: 20 0RF ibuprofen 600 mg tablet 600 mg PO Q6H PRN (Reason: pain) Qty: 30 0RF cephalexin 500 mg capsule 500 mg PO Q8H 5 Days Qty: 15 0RF albuterol sulfate 90 mcg/actuation HFA aerosol inhaler 2 puff inhalation Q6H PRN (Reason: shortness of breath or wheezing) Qty: 8.5 0RF azithromycin 250 mg tablet See Rx Instructions .ROUTE .COMPLEX Qty: 6 0RF Rx Instructions: For 250 mg dose pack: take 500 mg today (day 1), then 250 mg for 4 days (days 2-5) benzonatate 100 mg capsule 100 mg PO TID PRN (Reason: cough) 5 Days Qty: 15 0RF ibuprofen 600 mg tablet 600 mg PO Q8H PRN (Reason: pain) Qty: 20 0RF Referrals: Jennifer Osman, [facility] [Primary Care Provider] - Stand Alone Forms: Work/School Release
== END 2022-07-30 05:11 | disposition home or self-care (01) ==
PROVIDERS: Emergency Provider Emergency Medicine; PCP Registered Nurse
DX: L50.0 Allergic urticaria (principal); R21 Rash and other nonspecific skin eruption; Z79.899 Other long term (current) drug therapy
CPT/HCPCS: 36415; 80053; 85025; 99283; 99284

== ENCOUNTER 2024-01-26 04:41 | Emergency (ER) | payer MEDICAID, SELFPAY ==
--- NOTE | ~2024-01-26 | XR_ITS ---
EXAMINATION: THORACIC SPINE, LUMBAR SPINE CLINICAL INFORMATION: Atraumatic midline spine pain spine pain COMPARISON: Lumbar spine 07/25/2022 chest radiograph 04/02/2022, CT angiogram chest 05/08/2021 TECHNIQUE: 2 views thoracic spine, 3 views lumbar spine FINDINGS: Vertebral body heights and disc spaces are well preserved in the thoracic spine. Some mild degenerative changes seen at T11-T12 with some inferior T11 endplate osteophytes. The lumbar spine appears unremarkable aside from some minimal disc space narrowing and vacuum phenomena at L5-S1. XR/XR thoracic spine 2V IMPRESSION: Mild degenerative changes in the thoracic and lumbar spine as described above, most marked at T11-T12.
--- NOTE | ~2024-01-26 | XR_ITS ---
EXAMINATION: THORACIC SPINE, LUMBAR SPINE CLINICAL INFORMATION: Atraumatic midline spine pain spine pain COMPARISON: Lumbar spine 07/25/2022 chest radiograph 04/02/2022, CT angiogram chest 05/08/2021 TECHNIQUE: 2 views thoracic spine, 3 views lumbar spine FINDINGS: Vertebral body heights and disc spaces are well preserved in the thoracic spine. Some mild degenerative changes seen at T11-T12 with some inferior T11 endplate osteophytes. The lumbar spine appears unremarkable aside from some minimal disc space narrowing and vacuum phenomena at L5-S1. XR/XR lumbar spine 2-3V IMPRESSION: Mild degenerative changes in the thoracic and lumbar spine as described above, most marked at T11-T12.
[2024-01-26 05:04] VITALS: BP 113/74; PULSE 82; RESP 16; TEMP 36.2; O2SAT 97; BMI 30.4
--- NOTE | 2024-01-26 08:36 | PC.NURSE ---
Pt brought back from waiting room, verbalizing sharp severe pinpoint 10/10 non-radiating back pain that started at 0200, states he turned in bed one way and there was a very sharp pain in the middle upper part of his back. Denies injuries/trauma recently. 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 Pt noted to be comfortably ambulating down hallway, no abnormal gait noted, currently eating [employer]. Call dickson within reach.
--- NOTE | 2024-01-26 09:10 | ED_ITS ---
HPI - Back Pain/Injury General Chief Complaint: Back Pain/Injury Stated Complaint: back pain Time Seen by Provider: 01/26/24 09:08 Source: patient Mode of arrival: ambulatory Limitations: no limitations History of Present Illness HPI Narrative: 33- year old male with pmhx significant for ADD, current tobacco smoker presents to the ED today for evaluation of acute back pain that will come from sleep at 2:00 a.m. this morning. Pain is localized to the mid spine between the thoracic and lumbar region. Pain is exacerbated with movement and position changes. Did not take any OTC medications prior to arrival. Denies ever having pain like this before. Denies injury or trauma to the back. Denies IV drug use. Denies fever, chills, neck pain, bowel or bladder incontinence or retention, numbness/tingling/weakness in the lower extremities, dysuria, hematuria, saddle anesthesia. Related Data Previous Rx's ?Medication ?Instructions ?Recorded albuterol sulfate 90 mcg/actuation 2 puff inhalation QID PRN 05/08/21 aerosol inhaler shortness of breath or wheezing #6.7 grams ibuprofen 600 mg tablet 600 mg PO Q6H PRN pain #30 tabs 11/22/21 tramadol 50 mg tablet 50 mg PO Q6H PRN pain, severe #20 11/22/21 tabs cephalexin 500 mg capsule 500 mg PO Q8H 5 days #15 caps 12/06/21 albuterol sulfate 90 mcg/actuation 2 puff inhalation Q6H PRN 04/02/22 aerosol inhaler shortness of breath or wheezing #8.5 grams azithromycin 250 mg tablet See Rx Instructions PO .COMPLEX #6 04/02/22 tabs benzonatate 100 mg capsule 100 mg PO TID PRN cough 5 days #15 04/02/22 caps ibuprofen 600 mg tablet 600 mg PO Q8H PRN pain #20 tabs 07/25/22 diphenhydramine HCl 25 mg capsule 25 mg PO TID PRN itching #30 caps 07/30/22 (Benadryl) prednisone 20 mg tablet 20 mg PO BID #10 tabs 07/30/22 cyclobenzaprine 5 mg tablet 5 mg PO Q8H PRN muscle spasm #7 01/26/24 tabs lidocaine 5 % topical patch 1 patch topical DAILY #15 ea 01/26/24 (Lidoderm) naproxen 500 mg tablet 500 mg PO Q8-12H PRN pain (scale 01/26/24 score 4-6) #14 tabs Allergies Allergy/AdvReac Type Severity Reaction Status Date / Time No Known Allergies Allergy Verified 01/26/24 05:05 Review of Systems Review of Systems: Constitutional: No fever, chills, fatigue, night sweats, weight changes ENT/Mouth: No ear pain, hearing loss, nasal congestion, sinus pain, rhinorrhea, sore throat Eyes: No eye pain, swelling, redness, vision changes, discharge Cardio: No chest pain, palpitations, WILLIS, orthopnea, peripheral edema Pulm: No SOB, cough, sputum, wheezing, dyspnea, hemoptysis GI: No nausea, vomiting, hematemesis, abdominal pain, diarrhea, constipation, hematochezia, melena : No irregular bleeding, dysuria, frequency, urgency, hesitancy, hematuria, flank pain, urinary flow changes, urinary incontinence or retention MSK: +back pain, No neck pain, joint pain, myalgias Skin: No lesions, rashes Neuro: No weakness, numbness, paresthesias, LOC, dizziness, headache All other systems reviewed and are negative. [facility] Past Medical History Attestation statement: The following information was validated with the patient. Source: old records reviewed and nursing notes reviewed Medical History Hx of bronchitis Smoker ADD (attention deficit disorder) Epidermal cyst Surgical History History of surgery History of surgery on wrist Hx of surgical procedure Social History Social History Are you a primary medicare biller to a significant other at home: No Do you presently have visiting nurse or other home services: No Alcohol intake: former Patient Tobacco Use Status: Current everyday Tobacco user Tobacco use type: Cigarette Years Smoked: 14 Substance Use Type: Marijuana Advance Directives: No Advance Directives Information Provided: No Do you have a plan to hurt others: No Plan Physical Exam Vital Signs: Vital Signs: Last Vital Signs Temp 97.1 F 01/26/24 05:04 Pulse 82 01/26/24 05:04 Resp 16 01/26/24 05:04 BP 113/74 01/26/24 05:04 Pulse Ox 97 01/26/24 05:04 O2 Del Method Room Air 01/26/24 05:04 BMI result Body Mass Index 30.4 Vital signs stable, afebrile Const: Other: Obvious discomfort with position changes. otherwise lying comfortably on the exam bed. General: cooperative, healthy appearing, comfortable, no acute distress, alert, awake and Physically active Orientation/consciousness: patient oriented x3 HEENT: Head: Yes normal to inspection, Yes normocephalic and Yes atraumatic Eyes: General: appearance normal, both eyes and all related structures Pupils: Equal, round and reactive pupils present EOM: EOMs intact bilaterally Neck: Other: + no cervical midline spinous tenderness or step-off deformity. Neck: Yes normal visual inspection, Yes full ROM and Yes no meningeal signs Resp: Effort & Inspection: normal respiratory effort Auscultation: clear to auscultation bilaterally Cardio: Rate: regular rate Rhythm: regular rhythm GI: Inspection: Yes normal to inspection Palpation (GI): Soft to palpation and nontender : General: Yes no CVA tenderness Back/Spine/Pelvis: Other: + midline spinous tenderness overlying T 5-T8. no step off deformity. Minimal tenderness over bilateral thoracic paraspinal muscles correlating with T5-T8. Back: no CVA tenderness Neuro: Other: Strength 5/5 intact throughout.? No saddle anesthesia.? Sensation intact to light touch.? Neurovascular intact distally.? General: patient oriented x3, gait normal and no meningeal signs Cranial nerves: Yes Equal, round and reactive pupils present Gait exam (Neuro): Normal gait present Extrem: General: Yes normal to inspection, Yes capillary refill normal and Yes normal gait Course Course Course Narrative: 1111-- x-rays of thoracic and lumbar spine showing minimal degenerative changes, with T11-T12 being most affected. There is no acute fracture. No change in disc spaces. Discussed all results with patient. > On re-evaluation, patient reports significant improvement in pain with Toradol, lidocaine patches and Flexeril. He states that he will be getting a ride home. Patient likely has back strain. Will send medications to pharmacy. Patient has remained stable throughout ED visit today. Discussed worrisome signs and symptoms and when to return to the ED. All questions answered at this time. Patient is agreeable with disposition and stable for discharge. Medications Administered Discontinued Medications Generic Name Dose Route Start Last Admin Trade Name Kendrickq PRN Reason Stop Dose Admin Cyclobenzaprine HCl 10 mg 01/26/24 09:15 01/26/24 09:31 Cyclobenzaprine Hcl 10 Mg Tablet PO 01/26/24 09:16 10 mg ONCE ONE Administration Ketorolac Tromethamine 30 mg 01/26/24 09:15 01/26/24 09:31 Ketorolac Tromethamine 30 Mg/Ml Vial IM 01/26/24 09:16 30 mg ONCE ONE Administration Lidocaine 1 patch 01/26/24 09:15 01/26/24 09:31 Lidocaine 4 % Patch Adh..Patch TRANSDERMA 01/26/24 09:16 1 patch ONCE ONE Administration Protocol Medical Decision Making Medical Decision Making MDM Narrative: 33- year old male with pmhx significant for ADD, current tobacco smoker presents to the ED today for evaluation of acute back pain that will come from sleep at 2:00 a.m. this morning. Vital signs stable. Nontoxic-appearing and in no acute distress. On exam, there is midline spinous tenderness overlying T5-T8. no step off deformity. Minimal tenderness over bilateral thoracic paraspinal muscles correlating with T5-T8. Ambulating with steady gait. In obvious discomfort with position changes, otherwise lying comfortably on the exam bed. Differential diagnosis includes MSK sprain, MSK strain, arthritis, disc herniation. Low suspicion for fracture, subluxation, sciatica, cord compression, cauda equina, Guillain-[place], epidural abscess. Plan for imaging and pain control. Differential Diagnosis Differential Diagnoses: The differential diagnosis associated with the presentation includes as above Admission/Observation Not indicated. Independent Interpretation I performed an independent interpretation of an: Plain X-Ray Interpretation: X-rays of thoracic and lumbar spine showing degenerative changes, no fracture, agree with radiologist's interpretation. Radiology Impression Discussion of test interpretation with radiology: I have reviewed the radiologist's reading. Radiologist Impression: EXAMINATION: THORACIC SPINE, LUMBAR SPINE CLINICAL INFORMATION: Atraumatic midline spine pain spine pain COMPARISON: Lumbar spine 07/25/2022 chest radiograph 04/02/2022, CT angiogram chest 05/08/2021 TECHNIQUE: 2 views thoracic spine, 3 views lumbar spine FINDINGS: Vertebral body heights and disc spaces are well preserved in the thoracic spine. Some mild degenerative changes seen at T11-T12 with some inferior T11 endplate osteophytes. The lumbar spine appears unremarkable aside from some minimal disc space narrowing and vacuum phenomena at L5-S1. XR/XR thoracic spine 2V IMPRESSION: Mild degenerative changes in the thoracic and lumbar spine as described above, most marked at T11-T12. EXAMINATION: THORACIC SPINE, LUMBAR SPINE CLINICAL INFORMATION: Atraumatic midline spine pain spine pain COMPARISON: Lumbar spine 07/25/2022 chest radiograph 04/02/2022, CT angiogram chest 05/08/2021 TECHNIQUE: 2 views thoracic spine, 3 views lumbar spine FINDINGS: Vertebral body heights and disc spaces are well preserved in the thoracic spine. Some mild degenerative changes seen at T11-T12 with some inferior T11 endplate osteophytes. The lumbar spine appears unremarkable aside from some minimal disc space narrowing and vacuum phenomena at L5-S1. XR/XR lumbar spine 2-3V IMPRESSION: Mild degenerative changes in the thoracic and lumbar spine as described above, most marked at T11-T12. External Record Review External record reviewed: Inpatient record Prescription Management I considered prescription management with: Pain Medication and Other (Flexeril, lidocaine patch) Social Determinants Patient?s care significantly limited by Social Determinants of Health including: Other Social Determinant of Health Critical Care Time Critical Care Time Critical Care Time: No Discharge Plan Discharge Clinical Impression: Strain of thoracic region Patient Disposition: Home, Self-Care Instructions: Muscle Strain (ED) Additional Instructions: Your imaging studies today did not show acute fracture. Your pain is likely musculoskeletal. Avoid bending, lifting, or twisting. Use ice several times per day for 20 minutes at a time for the next 48 hours and then change to heat. Flexeril is a muscle relaxer. Take this at night as it makes you drowsy. Do not drive, drink alcohol, or operate machinery while taking it. Naproxen is an anti-inflammatory / pain medication. Take with food. Do not take this with Ibuprofen or other NSAIDs as this may increase risk of GI bleeding. Lidoderm patches are numbing patches. Apply to painful areas. In addition you may take Tylenol at home. Follow up with your primary care provider as needed If your pain worsens, if you develop new numbness, tingling, weakness, loss of bowel or bladder function call 911 or return to the ER immediately for evaluation. Prescriptions: New lidocaine [Lidoderm] 5 % adhesive patch,medicated 1 patch topical DAILY Qty: 15 0RF Rx Instructions: leave on most painful area for up to 12 hrs naproxen 500 mg tablet 500 mg PO Q8-12H PRN (Reason: pain (scale score 4-6)) Qty: 14 0RF cyclobenzaprine 5 mg tablet 5 mg PO Q8H PRN (Reason: muscle spasm) Qty: 7 0RF No Action albuterol sulfate 90 mcg/actuation HFA aerosol inhaler 2 puff inhalation QID PRN (Reason: shortness of breath or wheezing) Qty: 6.7 0RF tramadol 50 mg tablet 50 mg PO Q6H PRN (Reason: pain, severe) Qty: 20 0RF ibuprofen 600 mg tablet 600 mg PO Q6H PRN (Reason: pain) Qty: 30 0RF cephalexin 500 mg capsule 500 mg PO Q8H 5 Days Qty: 15 0RF albuterol sulfate 90 mcg/actuation HFA aerosol inhaler 2 puff inhalation Q6H PRN (Reason: shortness of breath or wheezing) Qty: 8.5 0RF azithromycin 250 mg tablet See Rx Instructions .ROUTE .COMPLEX Qty: 6 0RF Rx Instructions: For 250 mg dose pack: take 500 mg today (day 1), then 250 mg for 4 days (days 2-5) benzonatate 100 mg capsule 100 mg PO TID PRN (Reason: cough) 5 Days Qty: 15 0RF prednisone 20 mg tablet 20 mg PO BID Qty: 10 0RF diphenhydramine HCl [Benadryl] 25 mg capsule 25 mg PO TID PRN (Reason: itching) Qty: 30 0RF ibuprofen 600 mg tablet 600 mg PO Q8H PRN (Reason: pain) Qty: 20 0RF Referrals: [facility] [Provider Group] [facility] [Provider Group] [facility] [[facility]] Stand Alone Forms: Work/School Release Print Language: Kazakh
[2024-01-26] MEDS: Ketorolac Tromethamine 30 MG/ML VIAL IM (09:31)
[2024-01-26] MEDS: Cyclobenzaprine HCl 10 MG TABLET PO (09:31)
[2024-01-26] MEDS: Lidocaine 4 % Patch ADH..PATCH 1 PATCH TRANSDERMA (09:31)
--- NOTE | 2024-01-26 09:37 | PC.NURSE ---
Meds given per mar, pt given a gingerale, resting quietly.
[2024-01-26 11:23] VITALS: BP 159/101; PULSE 70; RESP 20; TEMP 36.4; O2SAT 96
== END 2024-01-26 11:25 | disposition home or self-care (01) ==
PROVIDERS: Emergency Provider Emergency Medicine Emergency Medical Services
DX: S29.012A Strain of muscle and tendon of back wall of thorax, initial encounter (principal); X58.XXXA Exposure to other specified factors, initial encounter; Y93.9 Activity, unspecified; Y92.9 Unspecified place or not applicable; Y99.9 Unspecified external cause status
CPT/HCPCS: 72070; 72100; 96372; 99284; J1885

== ENCOUNTER → 2024-02-12 20:30 | Outpatient (REF) | payer MEDICAID, SELFPAY | LOC: HO.SL 20:30 | PROVIDERS: PCP Registered Nurse; Visit Provider Registered Nurse | DX: Z13.89 Encounter for screening for other disorder (principal) ==

== ENCOUNTER 2024-10-21 14:34 | Outpatient (AMB) | payer MEDICAID, SELFPAY ==
--- OUTSIDE RECORDS SUMMARY | 2024-10-21 14:36 | XMS_ITS | Clinical Summary ---
Author Organization [facility] Address [address] [place] [address] Phone Care Team Providers Care Family Practice Physician Name Role Phone Unavailable Primary Care Provider Unavailabl e Immunizations Name Administration Dates Next Due DTP 01/06/1996, 2,07/11/1991,02/04,1990 Hep B, ped/adol 02/14/1997,03/23/1996,03/01/1996 Hib (PRP-T) 09/20/1991, 1,02/04/1991,11/15 MMR 01/06/1996,09/20/1991 Meningococcal Conj (Menactra) MCV4P 07/06/2007 OPV 01/06/1996, 2,02/04/1991,11/15 Td (adult) (MBL), 2 Lf tetan us toxoid, PF, adsorbed 03/05/2008,07/26/2002 Tdap 07/06/2007 Social History Tobacco Use Types Packs/Day Years Used Date Smoking Tobacco: Never Assessed Sex and Gender Information Value Date Recorded Sex Assigned at Not on file Legal Sex Male 4:36 PM EDT Gender Identity Not on file Sexual Orientation Not on file Plan of Treatment Health Maintenance Due Date Last Done Comments Hepatitis B Vaccines (3 of 3 - 3-dose series) 04/11/1997 02/14/1997, 03/23/1996, 03/01/1996 Varicella Vaccines (1 of 2 - 13+ 2-dose series) 2003 DTaP,Tdap,and Td Vaccines (8 - Td or Tdap) 03/05/2018 03/05/2008, 07/06/2007, 07/26/2002, Additional history exists Influenza Vaccines (#1) 2024 COVID-19 Vaccine ( season) 2024 HIB Vaccines Completed 09/20/1991, 06/22, 02/04/1991, Additional history exists IPV Vaccines Completed 01/06/1996, 0 01/1992, 02/04/1991, Additional history exists MMR Vaccines Completed 01/06/1996, 09/20/1991 Meningococcal Vaccine Completed 07/06/2007 HPV Vaccines Aged Out No longer eligi ble based on patient's age to complete this topic Hepatitis A Vaccines Aged Out No long er eligible based on patient's age to complete this topic Men B Vaccine Aged Out No longer elig ible based on patient's age to complete this topic Pneumococcal Vaccine Aged Out No long er eligible based on patient's age to complete this topic
--- OUTSIDE RECORDS SUMMARY | 2024-10-21 14:36 | XMS_ITS | Encounter Summary ---
Author Organization [facility] Address [address] [place] [phone] Phone Care Team Providers Care Reverse Logistics Analyst Name Role Phone Unavailable Primary Care Provider Unavailabl e Encounter Details Date Type Department Care Team (Late st Contact Info) Description 07/10/2011 Documentation [facility] [address] [place] [address] Family Medicine, [place] [address] Social History Tobacco Use Types Packs/Day Years Used Date Smoking Tobacco: Never Assessed Sex and Gender Information Value Date Recorded Sex Assigned at Not on file Legal Sex Male 4:36 PM EDT Gender Identity Not on file Sexual Orientation Not on file documented as of this encounter Plan of Treatment Not on file documented as of this encounter Visit Diagnoses Not on filedocumented in this encounter
--- OUTSIDE RECORDS SUMMARY | 2024-10-21 14:36 | XMS_ITS | Encounter Summary ---
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 Primary Care Provider Encounter Details Date Type Department Care Team (Late st Contact Info) Description 10/10/2022 Telephone [facility] MEDICINE [address] [place] [address] Jennifer Osman FNP [address] [place] [address] Social History Tobacco Use Types Packs/Day Years Used Date Smoking Tobacco: Never Assessed Sex and Gender Information Value Date Recorded Sex Assigned at Male 07/21/2022 10:21 AM EDT Legal Sex Male 10:21 AM EDT Gender Identity Male 07/21/2022 10:21 AM EDT Sexual Orientation Straight 07/21/2022 10 :21 AM EDT documented as of this encounter Plan of Treatment Upcoming Encounters Date Type Department Care Team (Late st Contact Info) Description 11/23/2024 2:00 PM EST Office Visit [facility] MEDICINE [address] [place] [address] Jennifer Osman FNP [address] [place] [address] documented as of this encounter Visit Diagnoses Not on filedocumented in this encounter Care Teams Developer [employer]ver U[employer]olst[employer] Relationship Specialty Start Date End Date Jennifer Osman FNP [address] [place] [address] PCP - General Family Medicine 05/16/22 Lela Wilson Dry RoasterCash Register Repairer 01/05/24 documented as of this encounter
--- OUTSIDE RECORDS SUMMARY | 2024-10-21 14:36 | XMS_ITS | Clinical Summary ---
Author Organization [employer] Address [address] [place] [address] Care Team Providers Care Pen Rider Name Role Phone [facility] Primary Care Provider Allergies No known active allergies Medications EPINEPHrine (Epipen) 0.3 MG/0.3ML injection syringe inject 0.3 milliliter by intramuscular route once as needed for anaphylaxis 04/07/20 17 Active Blood Pressure kitIndications:E levated blood pressure reading in office without diagnosis of hypertension Use as instructed 1 kit 12/01/19 23 Active sildenafil (Viagra) 25 MG tabletIndication s:Erectile dysfunction, unspecified erectile dysfunction type Take 1 tablet (25 mg) by mouth if needed each day for erectile dysfunction. 60 tablet 1 11/18/19 24 Active nicotine polacrilex (Commit) 4 MG lozengeIndicatio ns:Tobacco use disorder Dissolve 1 lozenge (4 mg) in the mouth every 2 (two) hours if needed for smoking cessation (max. 20 lozenges/day). 72 lozenge 1 08/31/20 24 Active clindamycin (Cleocin T) 1 % external solutionIndicati ons:Hidradenitis suppurativa Apply topically 2 times daily. To affected areas on groin and chest 30 mL 1 08/31/20 24 025 Active benzoyl peroxide (PanOxyl Foaming Wash) 10 % external washIndications: Hidradenitis suppurativa Wash from neck down once daily 142 g 2 08/31/20 24 Active Active Problems Problem Noted Date Diagnosed Date Tobacco use disorder 09/01/2024 Animal bite of hand, right, initial encounter Assessment & Plan (07/19/2024 2:00 PM EDT): Pt reports cat bite on right hand. Exam consistent with infectious process. See image in chart. -will prescribe short course of Augmentin. -cleaned wound, put abx ointment on in clinic and marked around erythematous border to have pt monitor spreading. -ER and return precautions discussed. Substance use disorder 12/01/2022 Overview (12/01/2022): ?? Hx of ETOH and cocaine use ?? Sober x 6 months ?? No hx of IVDU Healthcare maintenance 11/13/2022 Erectile dysfunction 11/11/2021 Overview (12/01/2022): ?? X 6 months; no morning erections ?? Occasional LUTS Resolved Problems Problem Noted Date Diagnosed Date Resolved Date Severe alcohol dependence 11/13/2022 Encounters Date Type Department Care Team Description 08/31/2024 10:15 AM EST Office Visit [facility] [address], [place] [id number] [place], [place], [facility] Hidradenitis suppurativa (Primary Dx); Tobacco use disorder; Erectile dysfunction, unspecified erectile dysfunction type 08/31/2024 Travel from Last 3 Months Immunizations Name Administration Dates Next Due DTP 01/06/1996, 2,07/11/1991,02/04,1990 Hep B, Adolescent or Pediatric 02/14/1997,1995,03/01/1996 Hib (PRP-T) 09/20/1991, 1,02/04/1991,11/15 Influenza injectable quadriv alent preservative free 06/22/2014 MMR 01/06/1996,09/20/1991 Meningococcal MCV4P [id number]-135 07/06/2007 OPV 01/06/1996, 2,02/04/1991,11/15 TD (adult), 2 Lf tetanus tox oid, preservative free, adsorbed 07/31/2012,03/05/2008,07/26/2002 Tdap 01/19/2021,07/06/2007 Family History Medical History Relation Name Comments Hypertension Mother Colon cancer Neg Hx Relation Name Status Comments Mother Social History Tobacco Use Types Packs/Day Years Used Date Smoking Tobacco: Every Day Cigarettes Smokeless Tobacco: Never Tobacco Cessation:Ready to Q uit: Not Asked; Counseling Given: Not Answered Alcohol Use Standard Drinks/Week Comments Not Currently 0 (1 standard drink = 0.6 oz pur e alcohol) Depression Answer Date Recorded Patient Health Questionnaire-9 Score 0 08/31/2024 Patient Health Questionnaire-9 Score 0 08/31/2024 Last PHQ-9: Questionnaire Data Not on file 1 11/01/2023 Housing Stability Answer Date Recorded What is your housing situation today? I have aylin kyle 07/13/[address] you li ve. Do you have problems with any of the following? None of the above 07/13/2023 Food Insecurity Answer Date Recorded Within the past 12 months, y ou worried that your food would run out before you got money to buy more: Never True 07/13/2023 Within the past 12 months,th e food you bought just didn't last and you didn't have enough money to get more: Never True Transportation Answer Date Recorded In the past 12 months, has l ack of transportation kept you from medical appts, meetings, work or from getting things needed for daily living? No 07/13/2023 Utilities Answer Date Recorded In the past 12 months, has t he electric, gas, oil or water company threatened to shut off services in your home? No 07/13/2023 Depression Answer Date Recorded Patient Health Questionnaire-2 Score 0 08/31/2024 Sex and Gender Information Value Date Recorded Sex Assigned at Male 07/21/2022 10:21 AM EDT Legal Sex Male 10:21 AM EDT Gender Identity Male 07/21/2022 10:21 AM EDT Sexual Orientation Straight 07/21/2022 10 :21 AM EDT Last Filed Vital Signs Vital Sign Reading Time Taken Comments Blood Pressure 129/87 08/31/2024 10:16 AM EST Pulse 68 08/31/2024 10:16 AM EST Temperature 36.6 ??C (97.8 ??F) 08/31/2024 10:[address] Respiratory Rate 18 08/31/2024 10:16 AM EST Oxygen Saturation 97% 08/31/2024 10:16 AM EST Inhaled Oxygen Concentration - - Weight 101 kg (222 lb 6.4 oz) 08/31/2024 10:16 A M EST Height 177.8 cm (5' 10 ) 08/31/2024 10:16 AM EST Body Mass Index 31.91 08/31/2024 10:16 AM EST Plan of Treatment Upcoming Encounters Date Type Department Care Team (Late st Contact Info) Description 11/23/2024 2:00 PM EST Office Visit [facility] [address] [place] [address] Th[place], [place], [facility] [address] [place], [place] [phone] Health Maintenance Due Date Last Done Comments Hepatitis B Vaccines (3 of 3 - 3-dose series) 04/11/1997 02/14/1997, 03/23/1996, 03/01/1996 Alcohol/Substance Use Screening 2002 Family Planning (PISQ) 2005 Hepatitis C Screening 2008 Pneumococcal Vaccine: Pediatrics (0 to 5 Years) and At-Risk Patients (6 to 49) Years) (1 of 2 - PCV) 2009 SDOH Screening 11/13/2023 11/13/2022 COVID-19 Vaccine (3 - season) 2024 01/03/2022, 12/13/2021 Influenza Vaccine (#1) 2024 06/22/2014 Depression Screening 08/31/2025 08/31/2024, 08/31/20 24 Tobacco Screening 09/01/2025 09/01/2024 Lipid Panel 11/28/2027 11/27/2022, 10/11/2021 DTaP/Tdap/Td Vaccines (10 - Td or Tdap) 01/19/2031 01/19/2021, 07/31/2012, 03/05/2008, Additional history exists Zoster Vaccines (1 of 2) 2040 RSV Patients and Patients Aged 60 years or older (1 - 1-dose 75+ series) 2065 HIB Vaccines Completed 09/20/1991, 06/22, 02/04/1991, Additional history exists IPV Vaccines Completed 01/06/1996, 01/1992, 02/04/1991, Additional history exists Meningococcal Vaccine Completed 07/06/2007 HIV Screening Completed 11/10/2019 HPV Vaccines Aged Out No longer eligi ble based on patient's age to complete this topic Hepatitis A Vaccines Aged Out No long er eligible based on patient's age to complete this topic RSV under 20 months Aged Out No longe r eligible based on patient's age to complete this topic Rotavirus Vaccines Aged Out No longer eligible based on patient's age to complete this topic Procedures Procedure Name Priority Date/Time Associated Diagnosis Comments LIPID PANEL, STANDARD Routine 11/27/2022 8:51 AM EST Healthcare maintenance ZZZ HISTORICAL HIV AB/AG Routine 11/10/2019 9:40 AM EST from Last 3 Months or Most Recently Relevant to Health Maintenance Results * (ABNORMAL) Lipid Panel, Standard (11/27/2022 8:51 AM EST) Cholesterol, Total 193 <200 mg/dL Proxible HDL Cholesterol 45 > OR = 40 mg/dL Proxible Triglycerides 202(H) <150 mg/dL Proxible Comment: If a non-fasting specimen was collected, consider repeat triglyceride testing on a fasting specimen if clinically indicated. Brandi et al. J. of Clin. Lipidol. 2015;9:129-169. LDL Cholesterol 116(H) mg/dL (calc) Proxible Comment: Reference range: <100 Desirable range <100 mg/dL for primary prevention; ?? <70 mg/dL for patients with CHD or diabetic patients with > or = 2 CHD risk factors. LDL-C is now calculated using the Robin calculation, which is a validated novel method providing better accuracy than the Friedewald equation in the estimation of LDL-C. Anderson LOMELI et al. EMMETT. 2013;310(19): 0026-0798 (http://[employer] Systems.Xiam/faq/MZI668) Chol/HDLC Ratio 4.3 <5.0 (calc) Proxible Non-HDL Cholesterol 148(H) <130 mg/dL (calc) Proxible Comment: For patients with diabetes plus 1 major ASCVD risk factor, treating to a non-HDL-C goal of <100 mg/dL (LDL-C of <70 mg/dL) is considered a therapeutic option. Blood Venous blood specimen / Unknown 11/27/2022 8:51 AM EST 11/27/2022 8:51 AM EST Narrative [facility] - 11/27/2022 10:00 PM EST FASTING:NO FASTING: NO [facility] LAB BLOOD ORDERABLES Final Re sult Performing Organization Address City/[facility]/ZIP Co de Phone Number [address], [place] [address] [employer] [place] [facility] [address], ([address]) [place] [address] * HIV AB/AG (11/10/2019 9:40 AM EST) [facility] HIV AG/AB NONREACTIVE NR [facility] Comment: HIV-1 p24 Ag and/or HIV-1/HIV-2 Ab not detected. ?? A test result that is nonreactive does not exclude the possibility of exposure to or infection with HIV-1 and/or HIV-2. Nonreactive results in this assay for individuals with prior exposure to HIV-1 and/or HIV-2 may be due to antigen and antibody levels that are below the limit of detection of this assay. ?? The [employer] HIV Ag/Ab Combo assay result and supplemental assay results should be interpreted in conjunction with the patient's clinical presentation, history and other laboratory results. ??If the results are inconsistent with clinical evidence, additional testing is suggested to confirm the result. 11/10/2019 9:40 AM EST Clarice Wong MD HISTORICAL/NON ORDERABLE LAB S Final Result [facility] [address] from Last 3 Months or Most Recently Relevant to Health Maintenance Insurance [facility] C3 HSN PARTIAL Care Teams Pen Rider Relationship Specialty Start Date End Date Jennifer Osman FNP [address] [place] [address] PCP - General Family Medicine 05/16/22 Lela Wilson Slubber OperatorOperations Executive 01/05/24
--- NOTE | 2024-10-21 15:06 | MHC.OFFVIS ---
Intake Visit Reasons: Erectile Dysfunction Intake Note: New patient Presents for Erectile Dysfunction Any Urology Medication: None Antibiotic Allergies: None Blood Thinners: None Safety Patrol Officer Required: No Accompanied by: Self / Same As Patient Allergies No Known Allergies Allergy (Verified 10/21/24 15:21) HPI Comments Details: Gerber is a 34 year old male with complaints ED about a year. Comorbidity--Nicotine use since age 16 1ppd. IIEF score - 12. Discussed smoking cessation. H/O substance abuse, no current use. Denies methodone use. Frequent Marijuana use. Discussed trial of iCialis 5 mg daily. Will check testosterone levels. PFS Medical History Hx of bronchitis Smoker ADD (attention deficit disorder) Epidermal cyst Surgical History History of surgery History of surgery on wrist Hx of surgical procedure Social History Are you a primary rn long term care to a significant other at home: No Do you presently have visiting nurse or other home services: No Alcohol intake: former Patient Tobacco Use Status: Current everyday Tobacco user Tobacco use type: Cigarette Years Smoked: 14 Substance Use Type: Marijuana Review of Systems Const All systems reviewed & are unremarkable except as noted in HPI and below Reports no additional complaints Eyes Reports no additional complaints ENT Reports no additional complaints Card Reports no additional complaints Resp Reports no additional complaints GI Reports no additional complaints Reports as per HPI Musc Reports no additional complaints Skin/Breast Reports system reviewed and no additional complaints, except as documented Neuro Reports no additional complaints Psych Reports no additional complaints Endo Reports no additional complaints Lexx/Lymph Reports no additional complaints Aller/Immun Reports no additional complaints Physical Exam Const General: healthy appearing, no acute distress and well developed Orientation/consciousness: patient oriented x3 HEENT Head: Yes normocephalic and Yes atraumatic Eyes Conjunctivae: conjunctivae normal Neck Neck: Yes normal visual inspection Chest Chest palpation & inspection: normal inspection of the chest Resp Effort & Inspection: normal respiratory effort GI Inspection: Yes normal to inspection Neuro General: patient oriented x3 Extrem General: No pedal edema Psych Appearance: grossly normal Affect: normal affect Assessment & Plan Assessment & Plan (1) Erectile dysfunction: Code(s): N52.9 - Male erectile dysfunction, unspecified Category: Medical (2) Nicotine dependence: Code(s): F17.200 - Nicotine dependence, unspecified, uncomplicated Category: Medical Plan Testosterone levels, Trial Daily Cialis 5mg, Nicotine cessation Orders: Orders Testosterone, Free/Total Today N52.9 - Male erectile dysfunction, unspecified Medications: New tadalafil USE COUPON NOT INSURANCE BIN N Group [facility] [id number] [id number] 5 mg PO DAILY 30 days 30 tabs 3RF Patient Instructions: The patient had an opportunity to ask questions regarding treatment plan. The patient expressed understanding and agreement with the above treatment plan. The patient is aware they should contact our office by phone for worsening of their current condition or the appearance of new symptoms. Compliance is encouraged with any medications and followup testing that is ordered. It is a privilege to be allowed the opportunity to participate in the urologic care of your patient. If you have any questions or concerns regarding treatment for the above conditions please do not hesitate to contact me. The office telephone contact is [phone]. This note is constructed in part using voice recognition software. While every effort has been made to ensure accuracy coffee taster errors may have been included. Yours sincerely, Karey Godinez MD Coding Level of Care Code New Pt Level 4 (97014) Diagnoses Erectile dysfunction N52.9 Nicotine dependence F17.200 IIEF-5 Questionnaire IIEF-5 How do you rate your confidence that you could get and keep an erection?: 1-Very Low When you had erections with sexual stimulation, how often were your erections hard enough for penetration?: Almost never/never During sexual intercourse, how often were you able to maintain your erection after your had penetrated(entered) your partner?: Almost never/never During sexual intercourse, how difficult was it to maintain your erection to completion of intercourse?: Slightly Difficult When you attempted sexual intercourse, how often was it satisfactory for you?: Almost always/ always IIEF-5 Score IIEF-5 Score: 12
== END 2024-10-21 16:01 | disposition home or self-care (01) ==
PROVIDERS: PCP Registered Nurse; Visit Provider Urology
DX: N52.9 Male erectile dysfunction, unspecified (principal); F17.200 Nicotine dependence, unspecified, uncomplicated
CPT/HCPCS: 99204

== ENCOUNTER → 2024-10-21 14:34 | Outpatient (BNVA) | payer MEDICAID, SELFPAY | PROVIDERS: PCP Registered Nurse; Visit Provider Urology | DX: N52.9 Male erectile dysfunction, unspecified (principal); F17.210 Nicotine dependence, cigarettes, uncomplicated; Z71.6 Tobacco abuse counseling | CPT/HCPCS: 99202 ==

== ENCOUNTER 2024-11-16 08:02 | Emergency (ER) | payer MEDICAID, SELFPAY ==
--- NOTE | ~2024-11-16 | XR_ITS ---
EXAMINATION: XR THORACIC SPINE CLINICAL INFORMATION: pain, no injury COMPARISON: January 26, 2024. TECHNIQUE: 3 views of the thoracic spine were obtained. FINDINGS: No acute cortical disruption or gross malalignment. No lytic or blastic lesions. XR/XR thoracic spine 2V IMPRESSION: Limited demonstrated no gross acute fracture or gross listhesis. Electronically signed by: Konstantin Burns MD 11/16/2024 11:13 AM [facility]
--- NOTE | ~2024-11-16 | XR_ITS ---
EXAMINATION: XR LUMBOSACRAL SPINE CLINICAL INFORMATION: pain, no injury COMPARISON: 01/26/2024. TECHNIQUE: Four views of the lumbosacral spine. FINDINGS: No scoliosis. Mildly straightened lordosis. No subluxations. No compression deformity, fracture, or suspicious bone lesion. Mild to moderate disc space narrowing noted focally at L5-S1. Disc spaces otherwise maintained. Early facet degeneration L5-S1. Facets normally aligned without additional degenerative change. The sacrum and SI joints appear normal. There is no paraspinous or paravertebral soft tissue abnormality. XR/XR lumbar spine 2-3V IMPRESSION: 1. No acute findings lumbar spine. 2. Mild degenerative disc and facet disease L5-S1. Electronically signed by: Enoc Pool MD 11/16/2024 11:15 AM [facility]
[2024-11-16 08:21] VITALS: BP 130/84; PULSE 84; RESP 16; TEMP 36; O2SAT 96; BMI 31.2
--- NOTE | 2024-11-16 10:23 | ED_ITS ---
HPI - Back Pain/Injury General Chief Complaint: Back Pain/Injury Stated Complaint: Back pain Time Seen by Provider: 11/16/24 10:15 Source: patient Mode of arrival: ambulatory Limitations: no limitations History of Present Illness ED Provider: LAKSHMI SALINAS PA-C HPI Narrative: 34 year old male with pmhx significant for substance abuse (cocaine - no IVDU), ADD, current tobacco smoker presents to the ED today for evaluation of atraumatic lower back pain x1 week. Pain is localized to right lumbar region. Pain is exacerbated with movement. He reports taking a friend's oxycodone and percocet which relieves the pain. He last took these 2 days ago. Denies any urinary sx. Denies trauma/ injury. Denies IV drug use. Denies fever, chills, neck pain, bowel or bladder incontinence or retention, numbness/tingling/weakness in the lower extremities, dysuria, hematuria, saddle anesthesia. Related Data Previous Rx's ?Medication ?Instructions ?Recorded albuterol sulfate 90 mcg/actuation 2 puff inhalation QID PRN 05/08/21 aerosol inhaler shortness of breath or wheezing #6.7 grams albuterol sulfate 90 mcg/actuation 2 puff inhalation Q6H PRN 04/02/22 aerosol inhaler shortness of breath or wheezing #8.5 grams diphenhydramine HCl 25 mg capsule 25 mg PO TID PRN itching #30 caps 07/30/22 (Benadryl) lidocaine 5 % topical patch 1 patch topical DAILY #15 ea 01/26/24 (Lidoderm) naproxen 500 mg tablet 500 mg PO Q8-12H PRN pain (scale 01/26/24 score 4-6) #14 tabs tadalafil 5 mg tablet 5 mg PO DAILY 30 days #30 tabs 10/21/24 cyclobenzaprine 5 mg tablet 5 mg PO Q8H PRN muscle pain #7 tabs 11/16/24 lidocaine 5 % topical patch 1 patch topical DAILY #15 ea 11/16/24 (Lidoderm) prednisone 20 mg tablet 60 mg (3 x 20 mg) PO DAILY 5 days 11/16/24 #15 tabs Allergies Allergy/AdvReac Type Severity Reaction Status Date / Time No Known Allergies Allergy Verified 11/16/24 08:25 Review of Systems Review of Systems: Constitutional: No fever, chills, fatigue, night sweats, weight changes ENT/Mouth: No ear pain, hearing loss, nasal congestion, sinus pain, rhinorrhea, sore throat Eyes: No eye pain, swelling, redness, vision changes, discharge Cardio: No chest pain, palpitations, WILLIS, orthopnea, peripheral edema Pulm: No SOB, cough, sputum, wheezing, dyspnea, hemoptysis GI: No nausea, vomiting, hematemesis, abdominal pain, diarrhea, constipation, hematochezia, melena : No irregular bleeding, dysuria, frequency, urgency, hesitancy, hematuria, flank pain, urinary flow changes, urinary incontinence or retention MSK: +back pain, No neck pain, joint pain, myalgias Skin: No lesions, rashes Neuro: No weakness, numbness, paresthesias, LOC, dizziness, headache All other systems reviewed and are negative. FOR[facility]LY [facility] Past Medical History Attestation statement: The following information was validated with the patient. Source: old records reviewed and nursing notes reviewed Medical History Hx of bronchitis Smoker ADD (attention deficit disorder) Epidermal cyst Surgical History History of surgery History of surgery on wrist Hx of surgical procedure Social History Social History Are you a primary pharmacist critical care to a significant other at home: No Do you presently have visiting nurse or other home services: No Alcohol intake: former Patient Tobacco Use Status: Current everyday Tobacco user Tobacco use type: Cigarette Years Smoked: 14 Substance Use Type: Marijuana Advance Directives: No Advance Directives Information Provided: Yes Physical Exam Vital Signs: Vital Signs: Last Vital Signs Temp 97.9 F 11/16/24 11:42 Pulse 64 11/16/24 11:42 Resp 14 11/16/24 11:42 BP 131/74 11/16/24 11:42 Pulse Ox 98 11/16/24 11:42 O2 Del Method Room Air 11/16/24 11:42 BMI result Body Mass Index 31.2 Vital signs stable, afebrile Const: General: cooperative, comfortable and no acute distress Orientation/consciousness: patient oriented x3 HEENT: Head: Yes normal to inspection, Yes normocephalic and Yes atraumatic Eyes: General: appearance normal, both eyes and all related structures Pupils: Equal, round and reactive pupils present EOM: EOMs intact bilaterally Neck: Other: + no cervical midline spinous tenderness or step-off deformity. Neck: Yes normal visual inspection, Yes full ROM and Yes no meningeal signs Resp: Effort & Inspection: normal respiratory effort Auscultation: clear to auscultation bilaterally Cardio: Rate: regular rate Rhythm: regular rhythm GI: Inspection: Yes normal to inspection Palpation (GI): Soft to palpation and nontender : General: Yes no CVA tenderness Back/Spine/Pelvis: Other: +reproducible tenderness to palpation of right lumbar musculature. no palpable fluctuance, warmth, mass. no midline spinous tenderness or step off deformity. Back: no CVA tenderness Neuro: Other: Strength 5/5 intact throughout.? No saddle anesthesia.? Sensation intact to light touch.? Neurovascular intact distally.? General: patient oriented x3, gait normal and no meningeal signs Cranial nerves: Yes Equal, round and reactive pupils present Gait exam (Neuro): Normal gait present Course Course Course Narrative: 1146 -- X-ray thoracic spine without acute fracture. X-ray lumbar spine with mild degenerative disc disease and facet arthropathy at L5/S1. No red flag symptoms. I do not feel further imaging is warranted at this time. On re-evaluation, patient reports improvement after receiving Toradol, Flexeril and lidocaine patch. his mother will be driving him home today as he received flexeril and is unable to drive. Will send him home with a course of steroids, Flexeril and lidocaine patches. Advised to continue Tylenol and Motrin at home as needed. Advised to follow up with PCP. Patient has remained stable throughout ED visit today. Discussed worrisome signs and symptoms and when to return to the ED. All questions answered at this time. Patient is agreeable with disposition and stable for discharge. Medications Administered Discontinued Medications Generic Name Dose Route Start Last Admin Trade Name Freq PRN Reason Stop Dose Admin Cyclobenzaprine HCl 10 mg 11/16/24 10:22 11/16/24 11:12 Cyclobenzaprine Hcl 10 Mg Tablet PO 11/16/24 10:23 10 mg ONCE ONE Administration Ketorolac Tromethamine 30 mg 11/16/24 10:22 11/16/24 11:11 Ketorolac Tromethamine 30 Mg/Ml Vial IM 11/16/24 10:23 30 mg ONCE ONE Administration Lidocaine 1 patch 11/16/24 10:22 11/16/24 11:12 Lidocaine 4 % Patch Adh..Patch TRANSDERMA 11/16/24 10:23 1 patch ONCE ONE Administration Protocol Medical Decision Making Medical Decision Making MDM Narrative: 34 year old male with pmhx significant for substance abuse (cocaine - no IVDU), ADD, current tobacco smoker presents to the ED today for evaluation of atraumatic lower back pain x1 week. Vital signs are stable. afebrile. he is nontoxic appearing and in NAD. on exam, there is reproducible tenderness to palpation of right lumbar musculature. no palpable fluctuance, warmth, mass. no midline spinous tenderness or step off deformity. CMS intact distally. ambulating w/ steady gait. no CVAT. Concern for MSK sprain/strain, fracture, subluxation, disc herniation, sciatica. Unlikely cord compression, cauda equina, Guillain-Oakley, epidural abscess. Presentation not consistent with UTI, renal colic, nephrolithiasis, pyelo or hydronephrosis. Plan for imaging, pain control and re-evaluation. Differential Diagnosis Differential Diagnoses: The differential diagnosis associated with the presentation includes as above Admission/Observation Not indicated. Independent Interpretation I performed an independent interpretation of an: Plain X-Ray Interpretation: XR t spine without fracture XR l spine without fracture Radiology Impression Discussion of test interpretation with radiology: I have reviewed the radiologist's reading. Radiologist Impression: Procedure(s): XR lumbar spine 2-3V Accession Number(s): [id number] cc: Arpit Granado MD; [place]~ EXAMINATION: XR LUMBOSACRAL SPINE CLINICAL INFORMATION: pain, no injury COMPARISON: 01/26/2024. TECHNIQUE: Four views of the lumbosacral spine. FINDINGS: No scoliosis. Mildly straightened lordosis. No subluxations. No compression deformity, fracture, or suspicious bone lesion. Mild to moderate disc space narrowing noted focally at L5-S1. Disc spaces otherwise maintained. Early facet degeneration L5-S1. Facets normally aligned without additional degenerative change. The sacrum and SI joints appear normal. There is no paraspinous or paravertebral soft tissue abnormality. XR/XR lumbar spine 2-3V IMPRESSION: 1. No acute findings lumbar spine. 2. Mild degenerative disc and facet disease L5-S1. Electronically signed by: Enoc Pool MD 11/16/2024 11:15 AM EST RP Procedure(s): XR thoracic spine 2V Accession Number(s): [id number] cc: Arpit Granado MD; [facility]~ EXAMINATION: XR THORACIC SPINE CLINICAL INFORMATION: pain, no injury COMPARISON: January 26, 2024. TECHNIQUE: 3 views of the thoracic spine were obtained. FINDINGS: No acute cortical disruption or gross malalignment. No lytic or blastic lesions. XR/XR thoracic spine 2V IMPRESSION: Limited demonstrated no gross acute fracture or gross listhesis. Electronically signed by: Konstantin Bursn MD 11/16/2024 11:13 AM EST RP External Record Review External record reviewed: Inpatient record and Office record Prescription Management I considered prescription management with: Pain Medication and Other (flexeril, prednisone) Social Determinants Patient?s care significantly limited by Social Determinants of Health including: Other Social Determinant of Health Critical Care Time Critical Care Time Critical Care Time: No Discharge Plan Discharge Clinical Impression: Lumbar degenerative disc disease Patient Disposition: Home, Self-Care Instructions: Back Pain (ED), Lower Back Exercises (ED) Additional Instructions: You were evaluated in the Emergency Department today for your back pain.? Your evaluation did not show signs of medical conditions requiring emergent intervention at this time. The xrays of your back show chronic degenerative changes within the spine without fracture. Avoid bending, lifting, or twisting. Use ice several times per day for 20 minutes at a time for the next 48 hours and then change to heat. We recommend you take 600mg ibuprofen every 6 hours or tylenol 650mg every 6 hours as needed for pain. If needed, you can alternate these medications so that you take one medication every 3 hours. For example, at noon take ibuprofen, then at 3pm take tylenol, then at 6pm take ibuprofen. Prednisone is a steroid that has been sent to your pharmacy. Take this as prescribed over the next 5 days. Flexeril is a muscle relaxer. Take this at night as it makes you drowsy. Do not drive, drink alcohol, or operate machinery while taking it. Lidoderm patches are numbing patches. Apply to painful areas. Please schedule an appointment for follow-up with your primary care provider this week for further evaluation of your symptoms. Return to the Emergency Department if you experience worsening back pain, difficulty walking, fevers, numbness, tingling, incontinence, or any other concerning symptoms. In the case of an emergency call 911. Prescriptions: New prednisone 20 mg tablet 60 mg PO DAILY 5 Days Qty: 15 0RF cyclobenzaprine 5 mg tablet 5 mg PO Q8H PRN (Reason: muscle pain) Qty: 7 0RF lidocaine [Lidoderm] 5 % adhesive patch,medicated 1 patch topical DAILY Qty: 15 0RF Rx Instructions: leave on most painful area for up to 12 hrs No Action albuterol sulfate 90 mcg/actuation HFA aerosol inhaler 2 puff inhalation QID PRN (Reason: shortness of breath or wheezing) Qty: 6.7 0RF albuterol sulfate 90 mcg/actuation HFA aerosol inhaler 2 puff inhalation Q6H PRN (Reason: shortness of breath or wheezing) Qty: 8.5 0RF diphenhydramine HCl [Benadryl] 25 mg capsule 25 mg PO TID PRN (Reason: itching) Qty: 30 0RF lidocaine [Lidoderm] 5 % adhesive patch,medicated 1 patch topical DAILY Qty: 15 0RF Rx Instructions: leave on most painful area for up to 12 hrs naproxen 500 mg tablet 500 mg PO Q8-12H PRN (Reason: pain (scale score 4-6)) Qty: 14 0RF tadalafil 5 mg tablet 5 mg PO DAILY 30 Days Qty: 30 3RF Rx Instructions: USE COUPON NOT INSURANCE BIN N Group [facility] 33 [id number] Referrals: Jennifer Osman FNP [Primary Care Provider] - Print Language: Slovak
[2024-11-16] MEDS: Ketorolac Tromethamine 30 MG/ML VIAL IM (11:11)
[2024-11-16] MEDS: Lidocaine 4 % Patch ADH..PATCH 1 PATCH TRANSDERMA (11:12)
[2024-11-16] MEDS: Cyclobenzaprine HCl 10 MG TABLET PO (11:12)
[2024-11-16 11:42] VITALS: BP 131/74; PULSE 64; RESP 14; TEMP 36.6; O2SAT 98
[2024-11-16 12:15] VITALS: BP 131/74; PULSE 64; RESP 14; TEMP 36.6; O2SAT 98
--- OUTSIDE RECORDS SUMMARY | 2024-11-16 12:50 | XMS_ITS | Clinical Summary ---
Author Organization [facility] Address [address] [place] [phone] Phone Care Team Providers Care Entertainment Reporter Name Role Phone Unavailable Primary Care Provider Unavailabl e Immunizations Immunization Administration Dates Next Due DTP 01/06/1996, 2,07/11/1991,02/04,1990 [...]
--- OUTSIDE RECORDS SUMMARY | 2024-11-16 12:51 | XMS_ITS | Clinical Summary ---
Author Organization [employer] Address [address] [place] [address] Care Team Providers Care Welt Drawer Name Role Phone [facility] Primary Care Provider [phone] Allergies No known active allergies Medications EPINEPHrine [...] Encounters Date Type Department Care Team Description 11/16/2024 Orders Only [facility] External Provider, [facility] 11/11/2024 Patient Outreach [facility] [address] [place] [phone] Jennifer Osman FNP Pre-visit Planning ((PVP screening in completed)) 08/31/2024 10:15 AM EST Office Visit [facility] [address] [place] [phone] Jennifer Osman FNP Hidradenitis suppurativa (Primary Dx); Tobacco use disorder; [...] Description 11/23/2024 2:00 PM EST Office Visit [facility] [address] [place] [address] [facility] [address] [place], [place] [phone] Health Maintenance Due Date Last Done Comments [...] Procedure Name Priority Date/Time Associated Diagnosis Comments XR LUMBAR SPINE 2-3 VIEWS Routine 11/16/2024 10:45 AM EST XR THORACIC SPINE 2 VIEWS Routine 11/16/2024 10:45 AM EST LIPID PANEL, STANDARD Routine 11/27/2022 8:51 AM EST Healthcare maintenance [facility] HISTORICAL HIV AB/AG Routine 11/10/2019 9:40 AM EST from Last 3 Months or Most Recently Relevant to Health Maintenance Results * XR Lumbar Spine 2-3 Views (11/16/2024 10:45 AM EST) Anatomical Region Laterality Modality Spine, L-spine Radiographic Zandra ging 11/16/2024 10:4 5 AM EST Narrative 11/16/2024 11:18 AM EST ? [facility] ?[address] ?[place] [address] ?XRay Report ? Signed ? Patient: Tan,Gerber E ?MR#: [id number] ?? 2 ? : 1990 ?Acct:[id number] ? Age/Sex: 34 / M ?ADM Date: 02/26/25 ? Loc: HO.ED ? Attending Dr: ? Ordering Physician: Arpit Granado MD ?? Date of Service: 11/16/24 ?? Procedure(s): XR lumbar spine 2-3V ?? Accession Number(s): [id number] ? cc: Arpit Granado MD; Jennifer Osman ? EXAMINATION: ?? XR LUMBOSACRAL SPINE ? CLINICAL INFORMATION: ?? pain, no injury ? COMPARISON: ?? 01/26/2024. ? TECHNIQUE: ?? Four views of the lumbosacral spine. ? FINDINGS: ?? No scoliosis. Mildly straightened lordosis. ?? No subluxations. ?? No compression deformity, fracture, or suspicious bone lesion. ?? Mild to moderate disc space narrowing noted focally at L5-S1. Disc ?? spaces otherwise maintained. ?? Early facet degeneration L5-S1. Facets normally aligned without ?? additional degenerative change. ? The sacrum and SI joints appear normal. ? There is no paraspinous or paravertebral soft tissue abnormality. ? XR/XR lumbar spine 2-3V ?? IMPRESSION: ?? 1. No acute findings lumbar spine. ?? 2. Mild degenerative disc and facet disease L5-S1. ? Electronically signed by: ??Enoc Pool MD ??11/16/2024 11:15 AM EST RP ? Dictated By: ?Enoc Pool MD ? Signed By: ?<Electronically signed by Enoc Pool MD in OV> ?11/16/24 1115 ? DD/ 1045 ? TD/TT: 11/16/24 1106 ? Veterinary Practitioner: ? Procedure Note Alyson Rodriguez - 11/16/[address] [address] XRay Report Signed Patient: Gerber Maddox EMR#: [id number] 2 : 1990Acct:[id number] Age/Sex: 34 / MADM Date: 11/16/24 Loc: HO.ED Attending Dr: Ordering Physician: Arpit Granado MD Date of Service: 11/16/24 Procedure(s): XR lumbar spine 2-3V Accession Number(s): [id number] cc: Arpit Granado MD; [facility] EXAMINATION: XR LUMBOSACRAL SPINE CLINICAL INFORMATION: pain, no injury COMPARISON: 01/26/2024. TECHNIQUE: Four views of the lumbosacral spine. FINDINGS: No scoliosis. Mildly straightened lordosis. No subluxations. No compression deformity, fracture, or suspicious bone lesion. Mild to moderate disc space narrowing noted focally at L5-S1. Disc spaces otherwise maintained. Early facet degeneration L5-S1. Facets normally aligned without additional degenerative change. The sacrum and SI joints appear normal. There is no paraspinous or paravertebral soft tissue abnormality. XR/XR lumbar spine 2-3V IMPRESSION: 1. No acute findings lumbar spine. 2. Mild degenerative disc and facet disease L5-S1. Electronically signed by: Enoc Pool MD 11/16/2024 11:15 AM EST RP Dictated By: Enoc Pool MD Signed By: <Electronically signed by Enoc Pool MD in OV> 11/16/24 1115 DD/ 1045 TD/TT: 11/16/24 1106 Veterinary Practitioner: [facility] External Provider IMG XR PROCEDURES Final Result * XR Thoracic Spine 2 Views (11/16/2024 10:45 AM EST) Anatomical Region Laterality Modality Spine, T-spine Radiographic Zandra ging 11/16/2024 10:4 5 AM EST Narrative 11/16/2024 11:16 AM EST ? [facility] ?[address] ?[place] [address] ?XRay Report ? Signed ? Patient: Tan,Gerber Roque ?MR#: [id number] ?? 2 ? : 1990 ?Acct:[id number] ? Age/Sex: 34 / M ?ADM Date: 02/26/25 ? Loc: HO.ED ? Attending Dr: ? Ordering Physician: Arpit Granado MD ?? Date of Service: 11/16/24 ?? Procedure(s): XR thoracic spine 2V ?? Accession Number(s): [id number] ? cc: Arpit Granado MD; Jennifer Osman CLINIC MD ASSOCIATE ? EXAMINATION: ?? XR THORACIC SPINE ? CLINICAL INFORMATION: ?? pain, no injury ? COMPARISON: ?? January 26, 2024. ? TECHNIQUE: ?? 3 views of the thoracic spine were obtained. ? FINDINGS: ?? No acute cortical disruption or gross malalignment. No lytic or blastic ?? lesions. ? XR/XR thoracic spine 2V ?? IMPRESSION: ?? Limited demonstrated no gross acute fracture or gross listhesis. ? Electronically signed by: ??Konstantin Burns MD ??11/16/2024 11:13 AM ?? EST RP ? Dictated By: ?Konstantin Graves MD ? Signed By: ?<Electronically signed by Konstantin Maddox MD in OV> ? 11/16/24 1113 ? DD/ 1045 ? TD/TT: 11/16/24 1106 ? Veterinary Practitioner: ? Procedure Note Donotjimmyinterpreter, Image - 11/16/2024 [place] [address] XRay Report Signed Patient: Gerber Maddox EMR#: [id number] 2 : 1990Acct:[id number] Age/Sex: 34 / MADM Date: 11/16/24 Loc: HO.ED Attending Dr: Ordering Physician: Arpit Granado MD Date of Service: 11/16/24 Procedure(s): XR thoracic spine 2V Accession Number(s): [id number] cc: Arpit Granado MD; [facility] EXAMINATION: XR THORACIC SPINE CLINICAL INFORMATION: pain, no injury COMPARISON: January 26, 2024. TECHNIQUE: 3 views of the thoracic spine were obtained. FINDINGS: No acute cortical disruption or gross malalignment. No lytic or blastic lesions. XR/XR thoracic spine 2V IMPRESSION: Limited demonstrated no gross acute fracture or gross listhesis. Electronically signed by: Konstantin Burns MD 11/16/2024 11:13 AM EST RP Dictated By: Konstantin Graves MD Signed By: <Electronically signed by Konstantin Maddox MDin OV> 11/16/24 1113 DD/ 1045 TD/TT: 11/16/24 1106 Veterinary Practitioner: [facility] External Provider IMG XR PROCEDURES Final Result * (ABNORMAL) Lipid Panel, Standard (11/27/2022 8:51 AM EST) Cholesterol, Total 193 <200 mg/dL [employer] [facility] HDL Cholesterol 45 > OR = 40 mg/dL [employer] [place] [employer] Triglycerides 202(H) <150 mg/dL [employer] [facility] Comment: If a non-fasting specimen was collected, consider repeat triglyceride testing on a fasting specimen if clinically indicated. Brandi et al. J. of Clin. Lipidol. 2015;9:129-169. LDL Cholesterol 116(H) mg/dL (calc) [employer] [facility] Comment: Reference range: <100 Desirable range <100 mg/dL for primary prevention; ?? <70 mg/dL for patients with CHD or diabetic patients with > or = 2 CHD risk factors. LDL-C is now calculated using the Anderson-Milian calculation, which is a validated novel method providing better accuracy than the Friedewald equation in the estimation of LDL-C. Anderson SS et al. EMMETT. 2013;310(19): 2760-4932 (http://education.Mybandstock/faq/FTT803) Chol/HDLC Ratio 4.3 <5.0 (calc) [employer] Non-HDL Cholesterol 148(H) <130 mg/dL (calc) [employer] [facility] Comment: For patients with diabetes plus 1 major ASCVD risk factor, treating to a non-HDL-C goal of <100 mg/dL (LDL-C of <70 mg/dL) is considered a therapeutic option. Blood Venous blood specimen / Unknown 11/27/2022 8:51 AM EST 11/27/2022 8:51 AM EST Narrative [facility] - 11/27/2022 10:00 PM EST FASTING:NO FASTING: NO [facility] LAB BLOOD ORDERABLES Final Re sult [facility] [address], [address], [place] [address] [employer] [facility] [address] , ([address]) [place] [address] * HIV AB/AG (11/10/2019 9:40 AM EST) HIV AG/AB NONREACTIVE NR [facility] ON LAB [...] detection of this assay. ?? The [employer] Mammal Control Agent HIV Ag/Ab Combo assay result and supplemental assay results should be interpreted in conjunction with the patient's clinical presentation, history and other laboratory results. ??If the results are inconsistent with clinical evidence, additional testing is suggested to confirm the result. 11/10/2019 9:40 AM EST us Clarice Wong MD HISTORICAL/NON ORDERABLE LAB S Final Result Performing Organization Address City/State/[facility] Co de Phone Number [facility] [address] from Last 3 Months or Most Recently Relevant to Health Maintenance Insurance [facility] C3 HSN PARTIAL Care Teams Welt Drawer Relationship Specialty Start Date End Date Jennifer Osman FNP [address] [place] [phone] PCP - General Family Medicine 05/16/22 Lela Wilson Sulfur Chloride OperatorWax Pourer 01/05/24
--- OUTSIDE RECORDS SUMMARY | 2024-11-16 12:51 | XMS_ITS | Encounter Summary ---
Author Organization [employer] Address [address] [facility] [address] [place] [address] Care Team Providers Care Screen Making Technician Name Role Phone [facility] Primary Care Provider [phone] Reason for Visit * Reason Comments Pre-visit Planning (PVP screening in co mpleted) Encounter Details Date Type Department Care Team ([facility] st Contact Info) Description 11/11/2024 Patient Outreach [facility] MEDICINE [address] [place], [place] [phone] [facility] [address] [place] [address] Pre-visit Planning ((PVP screening in completed)) Social History Tobacco Use Types Packs/Day Years Used Date Smoking Tobacco: Every Day Cigarettes Smokeless Tobacco: Never Alcohol Use Standard Drinks/Week Comments Not Currently 0 (1 standard drink = 0.6 oz pur e alcohol) Depression Answer Date Recorded Patient Health Questionnaire-9 Score 0 08/31/2024 Patient Health Questionnaire-9 Score 0 08/31/2024 Last PHQ-9: Questionnaire Data Not on file 1 11/01/2023 Housing Stability Answer Date Recorded What is your housing situation today? I have [place] kyle 07/13/[address] you [...] AM EDT documented as of this encounter Progress Notes * Herlinda Mims - 11/11/2024 10:17 AM EST CC Herlinda placed successful outbound call to patient for pre-visit planning. Patient name and confirmed. Patient confirms appt date and time, and has transportation. administrative underwriter unable to complete Screening over the phone.patient informed may be completed during office visit. documented in this encounter Plan of Treatment Upcoming Encounters Date Type Department Care Team (Late st Contact Info) Description 11/23/2024 2:00 PM EST Office Visit [facility] MEDICINE [address] [place] [address] Jennifer Osman [facility] [address] [place] [address] documented as of this encounter Visit Diagnoses Not on filedocumented in this encounter Additional Health Concerns Assessment Noted Time PHQ-9 Depression Total Score: 0 08/31/20 10:17 AM EST documented as of this encounter Care Teams Screen Making Technician Relationship Specialty Start Date End Date Jennifer Osman FNP [address] [place] [address] PCP - General Family Medicine 05/16/22 Lela Wilson Oil Recovery OperatorSenior Hr Business Partner 01/05/24 documented as of this encounter
--- OUTSIDE RECORDS SUMMARY | 2024-11-16 12:51 | XMS_ITS | Encounter Summary ---
Author Organization [employer] Address [address] [place] [address] Care Team Providers Care Mixing Plant Dumper Name Role Phone Jennifer Osman OTR DRIVER Primary Care Provider [phone] Encounter Details Date Type Department Care Team (Late st Contact Info) Description 11/16/2024 Orders Only [facility] External Provider, [facility] Social History Tobacco Use Types Packs/Day Years [...] your housing situation today? I have aylin klye 07/13/[address] you li [...] Description 11/23/2024 2:00 PM EST Office Visit [facility] MEDICINE [address] [place] [address] [facility], [facility] 230 [place] [address] documented as of this encounter Procedures Procedure Name Priority Date/Time Associated Diagnosis Comments XR LUMBAR SPINE 2-3 VIEWS Routine 11/16/2024 10:45 AM EST XR THORACIC SPINE 2 VIEWS Routine 11/16/2024 10:45 AM EST documented in this encounter Results * XR Lumbar Spine 2-3 Views (11/16/2024 10:45 AM EST) Anatomical Region Laterality Modality Spine, L-spine Radiographic Zandra ging 11/16/2024 10:4 5 AM EST Narrative 11/16/2024 11:18 AM EST ? [facility] ?[address] ?[place] [address] ?XRay Report ? Signed ? Patient: Tan,Gerber E ?MR#: [id number] ?? 2 ? : 1990 ?Acct:[id number] ? Age/Sex: 34 / M ?ADM Date: 02/26/25 ? Loc: HO.ED ? Attending Dr: ? Ordering Physician: Arpit Granado MD ?? Date of Service: 11/16/24 ?? Procedure(s): XR lumbar spine 2-3V ?? Accession Number(s): [id number] ? cc: Arpit Granado MD; TeasdaleJennifer OTR DRIVER ? EXAMINATION: ?? XR LUMBOSACRAL SPINE ? [...] DD/ 1045 ? TD/TT: 11/16/24 1106 ? Assembly Department Supervisor: ? Procedure Note Alyson Rodriguez - 11/16/[address] [address] XRay Report Signed Patient: Gerber Maddox EMR#: [id number] 2 : 1990Acct:[id number] Age/Sex: 34 / MADM Date: 11/16/24 Loc: HO.ED Attending Dr: Ordering Physician: Arpit Granado MD Date of Service: 11/16/24 Procedure(s): XR lumbar spine 2-3V Accession Number(s): [id number] cc: Arpit Granado MD; Jennifer Osman EXAMINATION: XR LUMBOSACRAL SPINE CLINICAL INFORMATION: pain, [...] 11/16/24 1115 DD/ 1045 TD/TT: 11/16/24 1106 Assembly Department Supervisor: [facility] External Provider IMG XR PROCEDURES Final Result * XR Thoracic Spine 2 Views (11/16/2024 10:45 AM EST) Anatomical Region Laterality Modality Spine, T-spine Radiographic Zandra ging 11/16/2024 10:4 5 AM EST Narrative 11/16/2024 11:16 AM EST ? [facility] ?[address] ?[place] [address] ?XRay Report ? Signed ? Patient: Gerber Maddox ?MR#: [id number] ?? 2 ? : 1990 ?Acct:[id number] ? Age/Sex: 34 / M ?ADM Date: 11/16/24 ? Loc: HO.ED ? Attending Dr: ? Ordering Physician: Arpit Granado MD ?? Date of Service: 11/16/24 ?? Procedure(s): XR thoracic spine 2V ?? Accession Number(s): [id number] ? cc: Arpit Granado MD; Jennifer Osman OTR DRIVER ? EXAMINATION: ?? XR THORACIC SPINE ? [...] DD/ 1045 ? TD/TT: 11/16/24 1106 ? Assembly Department Supervisor: ? Procedure Note Donfl[place]ster, Image - 11/16/[address] [address] XRay Report Signed Patient: Gerber Maddox EMR#: [id number] 2 : 1990Acct:[id number] Age/Sex: 34 / MADM Date: 11/16/24 Loc: HO.ED Attending Dr: Ordering Physician: Arpit Granado MD Date of Service: 11/16/24 Procedure(s): XR thoracic spine 2V Accession Number(s): [id number] cc: Arpit Granado MD; [facility] EXAMINATION: XR THORACIC SPINE CLINICAL INFORMATION: pain, no injury COMPARISON: January 26, 2024. TECHNIQUE: 3 views of the thoracic spine were obtained. FINDINGS: No acute cortical disruption or gross malalignment. No lytic or blastic lesions. XR/XR thoracic spine 2V IMPRESSION: Limited demonstrated no gross acute fracture or gross listhesis. Electronically signed by: Konstantin Burns MD 11/16/2024 11:13 AM EST Dictated By: Konstantin Graves MD Signed By: <Electronically signed by Konstantin Maddox MDin OV> 11/16/24 1113 DD/ 1045 TD/TT: 11/16/24 1106 Assembly Department Supervisor: [facility] External Provider IMG XR PROCEDURES Final Result documented in this encounter Visit Diagnoses Not on filedocumented in this encounter Additional Health Concerns Assessment Noted Time PHQ-9 Depression Total Score: 0 08/31/20 10:17 AM EST documented as of this encounter Care Teams Mixing Plant Dumper Relationship Specialty Start Date End Date Jennifer Osman FNP [address] [place] [address] PCP - General Family Medicine 05/16/22 Lela Wilson Locomotive InspectorCap Jewel Plate Assembler 01/05/24 documented as of this encounter
--- OUTSIDE RECORDS SUMMARY | 2024-11-16 12:51 | XMS_ITS | Encounter Summary ---
Author Organization [employer] [facility] Address [address] [place] [address] Care Team Providers Care Encoding Machine Operator Name Role Phone Jennifer Osman [facility] Primary Care Provider [phone] Encounter Details Date Type Department Care Team (Late st Contact Info) Description 10/10/2022 Telephone [facility] MEDICINE [address] [place] [address] Jennifer Osman FNP [address] [place] [address] Social History Tobacco Use Types Packs/Day Years [...] 11/23/2024 2:00 PM EST Office Visit [facility] MEDICINE [address] [place] [address] Jennifer Osman FNP [address] [place] [address] documented as of this encounter Visit Diagnoses Not on filedocumented in this encounter Care Teams Encoding Machine Operator Relationship Specialty Start Date End Date Jennifer Osman FNP [address] [place] [address] PCP - General Family Medicine 05/16/22 Lela Wilson Packaging MechanicWallcovering Hanger 01/05/24 documented as of this encounter
--- OUTSIDE RECORDS SUMMARY | 2024-11-16 12:51 | XMS_ITS | Encounter Summary ---
Author Organization [facility] Address [address] [place] [address] Phone Care Team Providers Care Senior Sourcing Manager Name Role Phone Unavailable Primary Care Provider Unavailabl e Encounter Details Date Type Department Care Team (Late st Contact Info) Description 07/10/2011 Documentation [facility] Family Medicine [address] [place] [address] Family Medicine, Physician [facility] [place] [address] Social History Tobacco Use Types [...]
== END 2024-11-16 12:16 | disposition home or self-care (01) ==
PROVIDERS: Emergency Provider Emergency Medicine; PCP Registered Nurse
DX: M51.369 Other intervertebral disc degeneration, lumbar region without mention of lumbar back pain or lower extremity pain (principal); M54.50 Low back pain, unspecified; F17.210 Nicotine dependence, cigarettes, uncomplicated; Z79.899 Other long term (current) drug therapy
CPT/HCPCS: 72070; 72100; 96372; 99283; 99284; J1885

== ENCOUNTER → 2024-11-16 10:45 | Outpatient (BNV) | payer MEDICAID, SELFPAY | PROVIDERS: Emergency Provider Emergency Medicine; PCP Registered Nurse; Visit Provider Radiology Diagnostic Radiology | DX: M51.369 Other intervertebral disc degeneration, lumbar region without mention of lumbar back pain or lower extremity pain (principal); M54.6 Pain in thoracic spine | CPT/HCPCS: 72070; 72100 ==

== ENCOUNTER 2025-01-12 11:15 | Emergency (ER) | payer MEDICAID, SELFPAY ==
[2025-01-12 11:19] VITALS: BP 135/69; PULSE 114; RESP 16; TEMP 36.3; O2SAT 97; BMI 30.5
--- NOTE | 2025-01-12 11:20 | ED.SKABFB ---
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 He reports accidentally dropping a chain saw which bounced back and cut his left leg. He immediately used his belt as a tourniquet. Reports driving himself to the ED for further evaluation. Bleeding is controlled on arrival. He is not no any anticoagulation. He does not believe his tetanus is up to date. Denies any numbness/tingling/weakness in the left lower extremity. Denies sustaining any other injury. Related Data Previous Rx's ?Medication ?Instructions ?Recorded albuterol sulfate 90 mcg/actuation 2 puff inhalation QID PRN 05/08/21 aerosol inhaler shortness of breath or wheezing #6.7 grams albuterol sulfate 90 mcg/actuation 2 puff inhalation Q6H PRN 04/02/22 aerosol inhaler shortness of breath or wheezing #8.5 grams diphenhydramine HCl 25 mg capsule 25 mg PO TID PRN itching #30 caps 07/30/22 (Benadryl) lidocaine 5 % topical patch 1 patch topical DAILY #15 ea 01/26/24 (Lidoderm) naproxen 500 mg tablet 500 mg PO Q8-12H PRN pain (scale 01/26/24 score 4-6) #14 tabs tadalafil 5 mg tablet 5 mg PO DAILY 30 days #30 tabs 10/21/24 cyclobenzaprine 5 mg tablet 5 mg PO Q8H PRN muscle pain #7 tabs 11/16/24 lidocaine 5 % topical patch 1 patch topical DAILY #15 ea 11/16/24 (Lidoderm) prednisone 20 mg tablet 60 mg (3 x 20 mg) PO DAILY 5 days 11/16/24 #15 tabs Allergies Allergy/AdvReac Type Severity Reaction Status Date / Time No Known Allergies Allergy Verified 01/12/25 11:23 Review of Systems Review of Systems: Yes all other systems are reviewed and are negative PMFSH Past Medical History Attestation statement: The following information was validated with the patient. Source: old records reviewed and nursing notes reviewed Medical History Hx of bronchitis Smoker ADD (attention deficit disorder) Epidermal cyst Surgical History History of surgery History of surgery on wrist Hx of surgical procedure Social History Social History Are you a primary rental boats caretaker to a significant other at home: No Do you presently have visiting nurse or other home services: No Alcohol intake: former Patient Tobacco Use Status: Current everyday Tobacco user Tobacco use type: Cigarette Years Smoked: 14 Smoked in Last 30 Days: Yes Use of substances other than those prescribed or required for medical reasons: Yes Substance Use Type: Marijuana Advance Directives: No Advance Directives Information Provided: Yes Do you have a plan to hurt others: No Plan Physical Exam Vital Signs: Vital Signs: Last Vital Signs Temp 97.4 F 01/12/25 11:19 Pulse 114 H 01/12/25 11:19 Resp 16 01/12/25 11:19 BP 135/69 01/12/25 11:19 Pulse Ox 97 01/12/25 11:19 BMI result Body Mass Index 30.5 tachycardic, vitals otherwise stable General: well appearing, in no acute distress. Skin: +see below Head: Normocephalic, atraumatic. EENT: Hearing is intact b/l. Conjunctiva clear. PERRLA. EOM intact. Moist mucous membranes.? Cardiac: Chest wall symmetric. RRR Lungs: Normal respiratory effort without accessory muscle use. CTA bilaterally Ext: + see photo below. Three somewhat linear lacerations noted to medial aspect of left leg just adjacent to knee. Bleeding controlled. No pulsating bleeding noted. Small amount of subcu tissue noted to most proximal laceration. No involvement of deeper structures. no FB. Full ROM intact to left knee. 2+ popliteal, PT and DP pulse intact. Compartments soft. No palpable hematoma or fluctuance. sensation intact. Neuro: AOx3. Normal speech. Ambulating with steady gait. Psych: Appropriate mood and affect. Responds appropriately to questions Course Course Course Narrative: This is a Rapid Medical Exam performed in triage by Sunni Smith PA-C. Full HPI, ROS and PE to be performed by primary ED provider. 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 Tdap out of date. denies AC use. Admits tied belt around leg immediately PE: +3 lacerations noted to L posterior leg Plan: TDap, wound repair, full eval by main provider Reevaluation(s) Reevaluation #1: 1314 -- tdap updated. patient medicated with toradol. Laceration repaired by my PA Student, Leonardo, with consent from patient, supervised by myself. 11 sutures placed, patient tolerated well. compression dressing applied. will provide patient with crutches for the next few days as sutures reside in an area of flexion. advised to return in 10-14 days for suture removal. Patient has remained stable throughout ED visit today. Discussed worrisome signs and symptoms and when to return to the ED. All questions answered at this time. Patient is agreeable with disposition and stable for discharge. Medications Administered Discontinued Medications Generic Name Dose Route Start Last Admin Trade Name Freq PRN Reason Stop Dose Admin Diphtheria/Tetanus/Acell Pertussis 0.5 ml 01/12/25 11:22 01/12/25 11:51 Diphth,Pertus(Acell),Tet Adult 0.5 Ml Syringe IM 01/12/25 11:23 0.5 ml .ONCE ONE Administration Ketorolac Tromethamine 30 mg 01/12/25 11:46 01/12/25 11:51 Ketorolac Tromethamine 30 Mg/Ml Vial IM 01/12/25 11:47 30 mg ONCE ONE Administration Lidocaine HCl 5 ml 01/12/25 11:45 01/12/25 11:50 Lidocaine Hcl 1 % Mpf 5 Ml Vial INFILTRATI 01/12/25 11:46 5 ml ONCE ONE Administration Lidocaine HCl 5 ml 01/12/25 11:45 01/12/25 11:50 Lidocaine Hcl 1 % Mpf 5 Ml Vial INFILTRATI 01/12/25 11:46 5 ml ONCE ONE Administration Medical Decision Making Medical Decision Making MDM Narrative: 34 year old male with no significant pmhx presents to the ED today for evaluation of 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 he is well appearing and in NAD. vitals notable for tachycardia, otherwise wnl. on exam of LLE, there are 3 somewhat linear lacerations noted to medial aspect of left leg just adjacent to knee. Bleeding controlled. No pulsating bleeding noted. Small amount of subcu tissue noted to most proximal laceration. No involvement of deeper structures. no FB. Full ROM intact to left knee. 2+ popliteal, PT and DP pulse intact. Compartments soft. No palpable hematoma or fluctuance. sensation intact. (see photo above) Differential diagnosis includes abrasion, laceration Unlikely fracture, nv compromise, retained FB, threat to limb Plan for tdap, lac repair, and disposition. Differential Diagnosis Differential Diagnoses: The differential diagnosis associated with the presentation includes as above. Admission/Observation not indicated External Record Review External record reviewed: Inpatient record Prescription Management I considered prescription management with: Pain Medication Social Determinants Patient?s care significantly limited by Social Determinants of Health including: Other Social Determinant of Health Procedures Laceration Laceration 1: Site: lower extremity Side (If applicable): left Size (cm): 7 Description: linear Depth: simple, single layer Local Anesthetic: lidocaine 1% Amount of anesthesia used (mL): 10 Pre-repair: wound explored, irrigated extensively and deep structures intact Skin layer closed with: nylon Size (cm): 3-0 Number of sutures: 11 Technique: simple, interrupted Orthopedic Splinting/Casting Injury #1: Side: left Other Orthopedic Equipment: crutches Smoking Cessation Time Spent Discussing Smoking Cessation w/Patient (min): 5 Patient Acknowledges Need for Cessation: Yes Critical Care Time Critical Care Time Critical Care Time: No Discharge Plan Discharge Clinical Impression: Laceration of leg, left Patient Disposition: Home, Self-Care Instructions: Care For Your Stitches (ED), Laceration (ED) Additional Instructions: You have been evaluated in the Emergency Department today for a laceration to your left leg. Your laceration was repaired in the ED with 11 sutures.? Your tetanus vaccination was also updated and will be valid for 5-10 years. Please keep the area surrounding the laceration clean and dry. Do not get the area wet for 24 hours. After 24 hours, you may clean the area with a nonscented soap and pat to dry. Please keep the area out of the sunlight for the next 6 months to help prevent scarring.? If you develop redness or swelling at the site of your laceration or note any discharge/ fluid coming from the laceration, please come back to the ER for a wound check. I recommend you take 600mg ibuprofen every 6 hours or tylenol 650mg every 6 hours as needed for pain. If needed, you can alternate these medications so that you take one medication every 3 hours. For example, at noon take ibuprofen, then at 3pm take tylenol, then at 6pm take ibuprofen. Please follow up with your primary care physician in 10-14 days for suture removal. You may also return to the ER or another urgent care facility for this service. Return to the Emergency Department if you experience discharge from your laceration, redness around your laceration, warmth around your laceration, fever, vomiting, numbness, tingling, or any other concerning symptoms. In the case of an emergency call 911. Prescriptions: No Action albuterol sulfate 90 mcg/actuation HFA aerosol inhaler 2 puff inhalation QID PRN (Reason: shortness of breath or wheezing) Qty: 6.7 0RF albuterol sulfate 90 mcg/actuation HFA aerosol inhaler 2 puff inhalation Q6H PRN (Reason: shortness of breath or wheezing) Qty: 8.5 0RF diphenhydramine HCl [Benadryl] 25 mg capsule 25 mg PO TID PRN (Reason: itching) Qty: 30 0RF lidocaine [Lidoderm] 5 % adhesive patch,medicated 1 patch topical DAILY Qty: 15 0RF Rx Instructions: leave on most painful area for up to 12 hrs naproxen 500 mg tablet 500 mg PO Q8-12H PRN (Reason: pain (scale score 4-6)) Qty: 14 0RF prednisone 20 mg tablet 60 mg PO DAILY 5 Days Qty: 15 0RF cyclobenzaprine 5 mg tablet 5 mg PO Q8H PRN (Reason: muscle pain) Qty: 7 0RF lidocaine [Lidoderm] 5 % adhesive patch,medicated 1 patch topical DAILY Qty: 15 0RF Rx Instructions: leave on most painful area for up to 12 hrs tadalafil 5 mg tablet 5 mg PO DAILY 30 Days Qty: 30 3RF Rx Instructions: USE COUPON NOT INSURANCE BIN [facility] Group [id number] Referrals: Jennifer Osman, RAILWAY YARD ASSISTANT [Primary Care Provider] - Stand Alone Forms: Work/School Release Print Language: Sami
[2025-01-12] MEDS: Lidocaine HCl 1 % MPF 5 ML VIAL INFILTRATI ×2 (11:50)
[2025-01-12] MEDS: Ketorolac Tromethamine 30 MG/ML VIAL IM (11:51)
[2025-01-12] MEDS: Diphth,Pertus(ACell),Tet Adult 0.5 ML SYRINGE IM (11:51)
--- NOTE | 2025-01-12 11:57 | PC.NURSE ---
Addendum entered by Maribell Mar RN 01/12/25 12:02: pt has + csm/pulses Original Note: patient a&ox3, pt self belt tourniquet was removed, pts wound was cleaned, picture taken for chart and redressed, pt medicated per order, provider to suture wound.
--- NOTE | 2025-01-12 11:58 | PC.NURSE ---
lidocaine to be administered by provider
[2025-01-12 13:28] VITALS: BP 128/66; PULSE 101; RESP 16; TEMP 36.8; O2SAT 98
--- NOTE | 2025-01-12 13:28 | PC.NURSE ---
non stick dressing and paola applied per request of provider
--- OUTSIDE RECORDS SUMMARY | 2025-01-12 14:36 | XMS_ITS | Clinical Summary ---
Author Organization [facility] Address [address] [place] [address] Phone Care Team Providers Care Dry Cleaning Teacher Name Role Phone Unavailable Primary Care Provider [...]
--- OUTSIDE RECORDS SUMMARY | 2025-01-12 14:36 | XMS_ITS | Encounter Summary ---
Author Organization [facility] Address [address] [place] [address] Phone Care Team Providers Care Clinical Social Worker Name Role Phone Unavailable Primary Care Provider Unavailabl e Encounter Details Date Type Department Care Team (Late st Contact Info) Description 07/10/2011 Documentation [facility] Family Medicine [address] [place] [address] Family Medicine, Physician [facility] [place] [address] Social History Tobacco Use Types [...]
--- OUTSIDE RECORDS SUMMARY | 2025-01-12 14:36 | XMS_ITS | Encounter Summary ---
Author Organization [employer] [facility] Address [address] [place] [address] [address] [place] [address] Care Team Providers Care Field Coil Winder Name Role Phone Jennifer Osman [facility] Primary Care Provider [phone] Encounter Details Date Type Department Care Team ([facility] st Contact Info) Description 10/10/[address] [facility] MED[facility] [address] [facility] [place], [place] [id number] Jennifer Osman [facility] [address] [place] [address] Social History Tobacco Use Types Packs/Day Years [...] on filedocumented in this encounter Care Teams Field Coil Winder Relationship Specialty Start Date End Date Jennifer Osman FNP [address] [place] [address] PCP - General Family Medicine 05/16/22 Lela Wilson Supply PlannerCoke Drawer Hand 01/05/24 documented as of this encounter
--- OUTSIDE RECORDS SUMMARY | 2025-01-12 14:36 | XMS_ITS | Clinical Summary ---
Author Organization [employer] Address [address] [facility] 7t [place] [address] Care Team Providers Care Medieval English Literature Professor Name Role Phone Jennifer Osman [facility] Primary Care Provider [phone] Allergies No known active allergies Medications * This document contains information received from the source organization and may not represent a complete record from that organization. EPINEPHrine (Epipen) 0.3 MG/0.3ML injection syringe inject [...] dysfunction. 60 tablet 1 11/18/19 24 Active clindamycin (Cleocin T) 1 % external solutionIndicati ons:Hidradenitis suppurativa Apply topically 2 times daily. To affected areas on groin and chest 30 mL 1 08/31/20 24 025 Active benzoyl peroxide (PanOxyl Foaming Wash) 10 % external washIndications: Hidradenitis suppurativa Wash from neck down once daily 142 g 2 08/31/20 24 Active naproxen (Naprosyn) 500 MG tabletIndication s:Acute right-sided low back pain without sciatica Take 1 tablet by oral route twice daily as needed for moderate pain 30 tablet 1 11/24/19 25 Active cyclobenzaprine (Flexeril) 5 MG tabletIndication s:Acute right-sided low back pain without sciatica Take 1-2 tablets three times daily as needed for muscle spasm 45 tablet 11/24/19 25 Active nicotine polacrilex (Commit) 4 MG lozengeIndicatio ns:Tobacco use disorder Dissolve 1 lozenge (4 mg) in the mouth every 2 (two) hours if needed for smoking cessation (max. 20 lozenges/day). 72 lozenge 1 11/24/19 25 Active lidocaine (Lidoderm) 5 % patchIndications :Acute right-sided low back pain without sciatica Apply 1 patch topically Once per day. 30 patch 11/24/19 25 025 Active Problems Problem Noted Date Diagnosed Date [...] Resolved Date Severe alcohol dependence 11/13/2022 Encounters * This document contains information received from the source organization and may not represent a complete record from that organization. Date Type Department Care Team Description 12/02/2024 Population Health Risk Score [facility] Department [address] [address] Provider, Population Health Generic 11/23/2024 2:00 PM EST Office Visit [facility] [address] [place] [address] [facility] Acute right-sided low back pain without sciatica (Primary Dx); Tobacco use disorder 11/23/2024 Travel 11/16/2024 Orders Only [facility] External Provider, [facility] 11/11/2024 Patient Outreach [facility] [address] [place] [address] A[place]vasse, Jennifer, MANAGER PEOPLE Pre-visit Planning ((PVP screening in completed)) from Last 3 Months Immunizations Name Administration Dates Next Due DTP 01/06/1996, 2,07/11/1991,02/04,1990 Hep B, Adolescent or Pediatric 02/14/1997,1995,03/01/1996 Hib (PRP-T) 09/20/1991, 1,02/04/1991,11/15 Influenza injectable quadriv alent preservative free 06/22/2014 MMR 01/06/1996,09/20/1991 Meningococcal MCV4P [id number]-135 07/06/2007 OPV, Trivalent 01/06/1996, 2,02/04/1991,11/15 TD (adult), 2 Lf tetanus [...] Date Recorded Patient Health Questionnaire-9 Score 0 11/23/2024 Patient Health Questionnaire-9 Score 0 11/23/2024 Last PHQ-9: Questionnaire Data Not on file 0 11/23/2024 Housing Stability Answer Date Recorded What is [...] the past 12 months, has t he [employer], gas, oil or water company threatened to shut off services in your home? No 07/13/2023 Depression Answer Date Recorded Patient Health Questionnaire-2 Score 0 11/23/2024 Sex and Gender Information Value Date Recorded Sex Assigned at Male 07/21/2022 10:21 AM EDT Legal Sex Male 10:21 AM EDT Gender Identity Male 07/21/2022 10:21 AM EDT Sexual Orientation Straight 07/21/2022 10 :21 AM EDT Last Filed Vital Signs Vital Sign Reading Time Taken Comments Blood Pressure 118/80 11/23/2024 2:08 PM EST Pulse 82 11/23/2024 2:08 PM EST Temperature 37.2 ??C (98.9 ??F) 11/23/2024 2:08 PM ES T Respiratory Rate 20 11/23/2024 2:08 PM EST Oxygen Saturation 97% 08/31/2024 10:16 AM EST Inhaled Oxygen Concentration - - Weight 108 kg (237 lb) 11/23/2024 2:08 PM EST Height 177.8 cm (5' 10 ) 11/23/2024 2:08 PM EST Body Mass Index 34.01 11/23/2024 2:08 PM EST Plan of Treatment Health Maintenance Due Date Last Done Comments Hepatitis B Vaccines (3 of 3 - 3-dose series) 04/11/1997 02/14/1997, 03/23/1996, 03/01/1996 Alcohol/Substance Use Screening 2002 Family Planning (PISQ) 2005 Hepatitis C Screening 2008 Pneumococcal Vaccine: Pediatrics (0 to 5 Years) and At-Risk Patients (6 to 49) Years) (1 of 2 - PCV) 2009 SDOH Screening 11/13/2023 11/13/2022 COVID-19 Vaccine ( season) 2024 Influenza Vaccine (#1) 2024 06/22/2014 Depression Screening 11/23/2025 11/23/2024, 11/24/19 Tobacco Screening 11/24/2025 11/24/2024 Lipid Panel 11/28/2027 11/27/2022, 10/11/2021 DTaP/Tdap/Td Vaccines (10 - Td or Tdap) 01/19/2031 01/12/2025, 01/19/2021, 07/31/2012, Additional history exists Zoster Vaccines (1 of [...] EST Narrative 11/16/2024 11:18 AM EST ? [facility] ?[address] ?[place] [address] ?XRay Report ? Signed ? Patient: Tan,Gerber E ?MR#: [id number] ?? 2 ? : 1990 ?Acct:[id number] ? Age/Sex: 34 / M ?ADM Date: 11/16/24 ? Loc: HO.ED ? Attending Dr: ? Ordering Physician: Arpit Granado MD ?? Date of Service: 11/16/24 ?? Procedure(s): XR lumbar spine 2-3V ?? Accession Number(s): [id number] ? cc: Arpit Granado MD; Jennifer Osman [...] DD/ 1045 ? TD/TT: 11/16/24 1106 ? [facility] Orthodontist: ? Procedure Note Michael, Image - 11/16/[address] [address] XRay Report Signed Patient: Gerber Maddox EMR#: [id number] 2 : 1990Acct:[id number] Age/Sex: 34 / MADM Date: 11/16/24 Loc: HO.ED Attending Dr: Ordering Physician: Arpit Granado MD Date of Service: 11/16/24 Procedure(s): XR lumbar spine 2-3V Accession Number(s): [id number] cc: Arpit Granado MD; [facility] EXAMINATION: XR LUMBOSACRAL SPINE CLINICAL [...] Enoc Pool MD 11/16/2024 11:15 AM EST Dictated By: Enoc Pool MD Signed By: <Electronically signed by Enoc Pool MD in OV> 11/16/24 1115 DD/ 1045 TD/TT: 11/16/24 1106 [facility] Orth[facility]ist: [facility] External Provider IMG XR PROCEDURES Final Result * XR Thoracic Spine 2 Views (11/16/2024 10:45 AM EST) Anatomical Region Laterality Modality Spine, T-spine Radiographic Zandra ging 11/16/2024 10:4 5 AM EST Narrative 11/16/2024 11:16 AM EST ? [facility] ?[address] ?[place] [address] ?XRay Report ? Signed ? Patient: Tan,Gerber E ?MR#: [id number] ?? 2 ? : 1990 ?Acct:[id number] ? Age/Sex: 34 / M ?ADM Date: 11/16/24 ? Loc: HO.ED ? Attending Dr: ? Ordering Physician: Arpit Granado MD ?? Date of Service: 11/16/24 ?? Procedure(s): XR thoracic spine 2V ?? Accession Number(s): [id number] ? cc: Arpit Granado MD; Jennifer Osman ? EXAMINATION: ?? XR THORACIC SPINE ? [...] DD/ 1045 ? TD/TT: 11/16/24 1106 ? [facility] Orthodontist: ? Procedure Note Alyson Rodriguez - 11/16/2024 [place] [address] XRay Report Signed Patient: Gerber Maddox EMR#: [id number] 2 : 1990Acct:[id number] Age/Sex: 34 / MADM Date: 11/16/24 Loc: HO.ED Attending Dr: Ordering Physician: Arpit Granado MD Date of Service: 11/16/24 Procedure(s): XR thoracic spine 2V Accession Number(s): [id number] cc: Arpit Granado MD; [facility] EXAMINATION: XR THORACIC SPINE CLINICAL [...] 11/16/24 1113 DD/ 1045 TD/TT: 11/16/24 1106 [facility] Orthodontist: [facility] External Provider IMG XR PROCEDURES Final Result * (ABNORMAL) Lipid Panel, Standard (11/27/2022 8:51 AM EST) Pathologist [facility] Cholesterol, Total 193 <200 mg/dL [facility] [place] [facility] HDL Cholesterol 45 > OR = 40 mg/dL [facility] [place] [facility] Triglycerides 202(H) <150 mg/dL [employer] Comment: If a non-fasting specimen was collected, consider repeat triglyceride testing on a fasting specimen if clinically indicated. Paz et al. J. of Clin. Lipidol. 2015;9:129-169. LDL Cholesterol 116(H) mg/dL (calc) [employer] Comment: Reference range: <100 Desirable range <100 mg/dL for primary prevention; ?? <70 mg/dL for patients with CHD or diabetic patients with > or = 2 CHD risk factors. LDL-C is now calculated using the Anderson-Rukhsana calculation, which is a validated novel method providing better accuracy than the Friedewald equation in the estimation of LDL-C. Anderson SS et al. EMMETT. 2013;310(19): 0826-0689 (http://education.VUELOGIC/faq/GAL331) Chol/HDLC Ratio 4.3 <5.0 (calc) [employer] Non-HDL Cholesterol 148(H) <130 mg/dL (calc) [employer] Comment: For patients with diabetes plus 1 major ASCVD risk factor, treating to a non-HDL-C goal of <100 mg/dL (LDL-C of <70 mg/dL) is considered a therapeutic option. Blood Venous blood specimen / Unknown 11/27/2022 8:51 AM EST 11/27/2022 8:51 AM EST Narrative [facility] - 11/27/2022 10:00 PM EST FASTING:NO FASTING: NO [facility] LAB BLOOD ORDERABLES Final Re sult Performing Organization Address City/[facility] Co de Phone Number [facility] [address] [facility] [address], [place] [address] [facility] [facility] [address], ([address]) [place] [address] * HIV AB/AG (11/10/2019 9:40 AM EST) Pathologist [facility] HIV AG/AB NONREACTIVE NR FOUNDATI ON LAB [...] detection of this assay. ?? The [employer] HIV Ag/Ab Combo assay result and supplemental assay results should be interpreted in conjunction with the patient's clinical presentation, history and other laboratory results. ??If the results are inconsistent with clinical evidence, additional testing is suggested to confirm the result. 11/10/2019 9:40 AM EST us Clarice Wong MD HISTORICAL/NON ORDERABLE LAB S Final Result Performing Organization Address [facility] Co de Phone Number [facility] [address] from Last 3 Months or Most Recently Relevant to Health Maintenance Insurance [facility] C3 HSN PARTIAL Care Teams Medieval English Literature Professor Relationship Specialty Start Date End Date Jennifer Osman FNP [address] [place] [address] PCP - General Family Medicine 05/16/22 Lela Wilson Billing Control ClerkGas Engine Repairer 01/05/24
== END 2025-01-12 13:29 | disposition home or self-care (01) ==
PROVIDERS: Emergency Provider Emergency Medicine; PCP Registered Nurse
DX: S81.812A Laceration without foreign body, left lower leg, initial encounter (principal); W29.3XXA Contact with powered garden and outdoor hand tools and machinery, initial encounter; Y93.H9 Activity, other involving exterior property and land maintenance, building and construction; Y92.9 Unspecified place or not applicable; Y99.9 Unspecified external cause status; Z23 Encounter for immunization
CPT/HCPCS: 12034; 90471; 90715; 96372; 99284; J1885; J2003

== ENCOUNTER 2025-01-26 14:20 | Outpatient (REF) | payer MEDICAID, SELFPAY ==
--- OUTSIDE RECORDS SUMMARY | 2025-01-26 15:11 | XMS_ITS | Encounter Summary ---
Author Organization [employer] Address [address] [place] [address] Care Team Providers Care Customer Greeter Name Role Phone [place] [facility] Primary Care Provider [phone] Encounter Details Date Type Department Care Team (Latest Contact Info) Description 01/23/2025 Travel Social History Tobacco Use Types Packs/Day Years [...] Care Team (Late st Contact Info) Description 01/30/2025 2:00 PM EDT Clinical Support [facility] [address] [place] [address] documented as of this encounter Visit Diagnoses Not on filedocumented in this encounter Additional Health Concerns Assessment Noted Time PHQ-9 Depression Total Score: 0 11/24/19 25 2:18 PM EST documented as of this encounter Care Teams Customer Greeter Relationship Specialty Start Date End Date Jennifer Osman FNP [address] [place] [address] PCP - General Family Medicine 05/16/22 Lela Wilson Intermission CoordinatorElectrical Products Sales Engineer 01/05/24 documented as of this encounter
--- OUTSIDE RECORDS SUMMARY | 2025-01-26 15:11 | XMS_ITS | Encounter Summary ---
Author Organization [facility] Address [address] [place] [address] Phone Care Team Providers Care Gold Buyer Name Role Phone Unavailable Primary Care Provider Unavailabl e Encounter Details Date Type Department Care Team (Late st Contact Info) Description 07/10/2011 Documentation [facility] [address] [place] [address] Family Medicine, Physician [facility] [place] [address] Social History Tobacco Use Types [...]
--- OUTSIDE RECORDS SUMMARY | 2025-01-26 15:11 | XMS_ITS | Encounter Summary ---
Author Organization [employer] Address [address] [place] [address] Care Team Providers Care Clinical Services Manager Name Role Phone [facility] Primary Care Provider [phone] Encounter Details Date Type Department Care Team (Latest Contact Info) Description 01/26/2025 Travel Social History Tobacco Use Types Packs/Day [...] Description 01/30/2025 2:00 PM EDT Clinical Support [facility] [address] [place] [address] documented as of this encounter Visit Diagnoses Not on filedocumented in this encounter Additional Health Concerns Assessment Noted Time PHQ-9 Depression Total Score: 0 11/24/19 25 2:18 PM EST documented as of this encounter Care Teams Clinical Services Manager Relationship Specialty Start Date End Date Jennifer Osman FNP [address] [place] [address] PCP - General Family Medicine 05/16/22 Lela Wilson Filtration SupervisorInstructional Technology Coach 01/05/24 documented as of this encounter
--- OUTSIDE RECORDS SUMMARY | 2025-01-26 15:11 | XMS_ITS | Clinical Summary ---
Author Organization [facility] Address [address] [place] [address] Phone Care Team Providers Care Commercial Helicopter Pilot Name Role Phone Unavailable Primary Care Provider [...]
--- OUTSIDE RECORDS SUMMARY | 2025-01-26 15:11 | XMS_ITS | Encounter Summary ---
Author Organization [employer] Address [address] [facility] 7t [place] [address] Care Team Providers Care Auto Electrical Technician Name Role Phone [facility] Primary Care Provider [phone] Reason for Visit * Reason Onset Date Comments Error (VOID this visit) 01/23/2025 Encounter Details Date Type Department Care Team ([facility] st Contact Info) Description 01/23/2025 Telephone [facility] [address] [place] [address] [facility] [address] [place] [address] Error (VOID this visit) Social History Tobacco Use Types Packs/Day Years [...] AM EDT documented as of this encounter Miscellaneous Notes * Telephone Encounter - Rupali Jett RN - 01/23/2025 3:14 PM EDT error documented in this encounter Plan of Treatment Upcoming Encounters Date Type Department Care Team (Late st Contact Info) Description 01/30/2025 2:00 PM EDT Clinical Support [facility] [address] [place] [address] documented as of this encounter Visit Diagnoses Not on filedocumented in this encounter Additional Health Concerns Assessment Noted Time PHQ-9 Depression Total Score: 0 11/24/19 25 2:18 PM EST documented as of this encounter Care Teams Auto Electrical Technician Relationship Specialty Start Date End Date Jennifer Osman FNP [address] [place] [address] PCP - General Family Medicine 05/16/[address] WorkerWarehousing Technician 01/05/24 documented as of this encounter
--- OUTSIDE RECORDS SUMMARY | 2025-01-26 15:11 | XMS_ITS | Encounter Summary ---
Author Organization [employer] Address [address] 7[address] [place] [address] Care Team Providers Care Cloth Cutter Name Role Phone [place] [facility] Primary Care Provider Reason for Visit * Reason Comments Suture / Staple Removal Encounter Details Date Type Department Care Team ([facility] st Contact Info) Description 01/26/2025 1:30 PM EDT Clinical Support [facility] [address] [place] [address] Rupali Jett RN Infected wound Social History Tobacco Use Types Packs/Day Years [...] as of this encounter Progress Notes * Rupali Jett RN - 01/26/2025 1:30 PM EDTAssociated Order(s): Suture Removal Post-Procedure Diagnose(s): Infected wound Patient ID: Gerber Maddox is a 34 y.o. male. Suture Removal Date/Time: 01/26/2025 2:21 PM Performed by: Rupali Jett RN Authorized by: Mila Mays MD Consent: Consent obtained: Verbal Consent given by: Patient Risks, benefits, and alternatives were discussed: yes Risks discussed: Bleeding, pain and wound separation Alternatives discussed: Alternative treatment and observation Sparks protocol: Procedure explained and questions answered to patient or proxy's satisfaction: yes Relevant documents present and verified: yes Test results available: yes Imaging studies available: yes Required blood products, implants, devices, and special equipment available: no Site/side marked: yes Immediately prior to procedure, a time out was called: yes Patient identity confirmed: Verbally with patient Location: Location: Lower extremity Lower extremity location: Leg Leg location: L upper leg Procedure details: Wound appearance: Red and nontender Number of sutures removed: 11 Post-procedure details: Post-removal: Antibiotic ointment applied and Band-Aid applied Procedure completion: Tolerated Comments: Patient will return on 01/30 for a nurse visit for wound evaluation to determine if another abx is needed. documented in this encounter Plan of Treatment Upcoming Encounters Date Type Department Care Team (Late st Contact Info) Description 01/30/2025 2:00 PM EDT Clinical Support [facility] [address] [place] [address] documented as of this encounter Procedures Procedure Name Priority Date/Time Associated Diagnosis Comments SUTURE REMOVAL Routine 01/26/2025 2:21 PM EDT Infected wound documented in this encounter Results * Suture Removal (01/26/2025 2:21 PM EDT) Rupali Sandoval RN - 01/26/2025 2:21 PM EDT Rupali Jett RN ? 01/26/2025 ??2:28 PM Suture Removal Date/Time: 01/26/2025 2:21 PM Performed by: Rupali Jett RN Authorized by: Mila Mays MD ?? Consent: ??Consent obtained: ??Verbal ??Consent given by: ??Patient ??Risks, benefits, and alternatives were discussed: yes ?Risks discussed: ??Bleeding, pain and wound separation ??Alternatives discussed: ??Alternative treatment and observation Sparks protocol: ??Procedure explained and questions answered to patient or proxy's satisfaction: yes ?Relevant documents present and verified: yes ?Test results available: yes ?Imaging studies available: yes ?Required blood products, implants, devices, and special equipment available: no ?Site/side marked: yes ?Immediately prior to procedure, a time out was called: yes ?Patient identity confirmed: ??Verbally with patient Location: ??Location: ??Lower extremity ??Lower extremity location: ??Leg ??Leg location: ??L upper leg Procedure details: ??Wound appearance: ??Red and nontender ??Number of sutures removed: ??11 Post-procedure details: ??Post-removal: ??Antibiotic ointment applied and Band-Aid applied ??Procedure completion: ??Tolerated Comments: ?? Patient will return on 01/30 for a nurse visit for wound evaluation to determine if another abx is needed. us Mila Mays MD IN CLINIC/BEDSIDE ORD ERABLES Final Result documented in this encounter Visit Diagnoses Diagnosis Infected wound Posttraumatic wound infection not elsewhere classified documented in this encounter Additional Health Concerns Assessment Noted Time PHQ-9 Depression Total Score: 0 03/05/20 25 2:18 PM EST documented as of this encounter Care Teams Cloth Cutter Relationship Specialty Start Date End Date [place] MAYE Rodriguez [address] [place] [address] PCP - General Family Medicine 05/16/22 Lela Wilson Building InspectorLocation And Measurement Technician 01/05/24 documented as of this encounter
--- OUTSIDE RECORDS SUMMARY | 2025-01-26 15:11 | XMS_ITS | Encounter Summary ---
Author Organization [employer] Address [address] [place] [address] Care Team Providers Care Pharmacy Consultant Name Role Phone [place] Primary Care Provider [phone] Reason for Visit * Reason Onset Date Comments Nurse Triage 01/23/2025 Encounter Details Date Type Department Care Team ([facility] st Contact Info) Description 01/23/2025 Telephone [facility] [address] [place], [place] [id number] Rupali Jett, TIMOTHY Nurse Triage Social History Tobacco Use Types Packs/Day Years [...] Encounter - Rupali Jett RN - 01/23/2025 3:03 PM EDT Patient arrived via ambulatory for suture removal. RN assessed patient Left lateral knee suture site, reddened, warm to touch, c/o pain and no drainage observed. RN advise patient to go [facility] toevaluated by a provider. documented in this encounter Plan of Treatment Upcoming Encounters Date Type Department Care Team (Late st Contact Info) Description 01/30/2025 2:00 PM EDT Clinical Support [facility] [address] [place] [address] documented as of this encounter Visit Diagnoses Not on filedocumented in this encounter Additional Health Concerns Assessment Noted Time PHQ-9 Depression Total Score: 0 11/24/19 25 2:18 PM EST documented as of this encounter Care Teams Pharmacy Consultant Relationship Specialty Start Date End Date Jennifer Osman FNP [address] [place] [address] PCP - General Family Medicine 05/16/22 Lela Wilson Construction CoordinatorCommercial Maintenance Technician 01/05/24 documented as of this encounter
--- OUTSIDE RECORDS SUMMARY | 2025-01-26 15:11 | XMS_ITS | Clinical Summary ---
Author Organization [employer] Address [address] [place] [address] Care Team Providers Care Chief Operating Engineer Name Role Phone Jennifer Osman [facility] Primary Care Provider [phone] Allergies No known active allergies Medications * [...] lozenges/day). 72 lozenge 1 11/24/19 25 Active sulfamethoxazole -trimethoprim (Bactrim DS) 800-160 MG tabletIndication s:Infected wound Take 1 tablet by mouth 2 times daily for 7 days. 14 tablet 01/24/20 25 025 Active Active Problems Problem Noted Date Diagnosed Date Infected wound 01/23/2025 Assessment & Plan (01/23/2025 6:08 PM EDT): I will treat patient with bactrim BID for one week, patient may return for stiches removal ED precautions reviewed with patient Tobacco use disorder 09/01/2024 Animal bite of [...] organization. Date Type Department Care Team Description 01/26/2025 1:30 PM EDT Clinical Support [address] [address] Rupali Jett RN Infected wound 01/26/2025 Travel 01/23/2025 5:20 PM EDT Office Visit [facility] [address] [place] [address] Mila Weinstein MD Infected wound 01/23/[address] [address] Rupali Jett RN Nurse Triage 01/23/2025 Telephone [facility] [address] [place] [address] Jennifer Osman FNP Error (VOID this visit) 01/23/2025 Travel 01/17/[address] [address] Jennifer Osman FNP Appointment Request 12/02/2024 Population [facility] Risk Score [facility] () Department [address] [place] [id number] Provider, Population Health Generic 11/23/2024 2:00 PM EST Office Visit [address] [address] Jennifer Osman FNP Acute right-sided low back pain without sciatica (Primary Dx); Tobacco use disorder 11/23/2024 Travel 11/16/2024 Orders Only [facility] External Provider, [facility] 11/11/2024 Patient Outreach [address] [address] Jennifer Osman FNP Pre-visit Planning ((PVP screening in completed)) from [...] Sign Reading Time Taken Comments Blood Pressure 142/83 01/23/2025 5:07 PM EDT Pulse 87 01/23/2025 5:07 PM EDT Temperature 36.7 ??C (98.1 ??F) 01/23/2025 5:07 PM ED T Respiratory Rate 22 01/23/2025 5:07 PM EDT Oxygen Saturation 97% 08/31/2024 10:16 AM EST Inhaled Oxygen Concentration - - Weight 117 kg (257 lb) 01/23/2025 5:07 PM EDT Height 177.8 cm (5' 10 ) 11/23/2024 2:08 PM EST Body Mass Index 36.88 11/23/2024 2:08 PM EST Plan of Treatment Upcoming Encounters Date Type Department Care Team (Late st Contact Info) Description 01/30/2025 2:00 PM EDT Clinical Support [address] [address] Health Maintenance Due Date Last Done Comments [...] 2024 06/22/2014 Depression Screening 11/23/2025 11/23/2024, 11/24/19 25 Tobacco Screening 01/23/2026 01/23/2025 Lipid Panel 11/28/2027 11/27/2022, 10/11/2021 DTaP/Tdap/Td Vaccines (11 - Td or Tdap) 01/12/2035 01/12/2025, 01/19/2021, 07/31/2012, Additional history exists Zoster Vaccines (1 of 2) 2040 RSV Patients and Patients Aged 60 years or older (1 - 1-dose 75+ series) 2065 HIB Vaccines Completed 09/20/1991, 06/22, 02/04/1991, Additional history exists IPV Vaccines Completed 01/06/1996, 0301/1992, 02/04/1991, Additional history exists Meningococcal Vaccine Completed [...] Routine 01/26/2025 2:21 PM EDT Infected wound XR LUMBAR SPINE 2-3 VIEWS Routine 11/16/2024 10:45 AM EST XR THORACIC SPINE 2 VIEWS Routine 11/16/2024 10:45 AM EST LIPID PANEL, STANDARD Routine 11/27/2022 8:51 AM EST Healthcare maintenance [facility] HISTORICAL HIV AB/AG Routine 11/10/2019 9:40 AM EST from Last 3 Months or Most Recently Relevant to Health Maintenance Results * Suture Removal (01/26/2025 2:21 PM EDT) Narrative Rupali Jett RN - 01/26/2025 2:21 PM EDT Rupali Jett RN ? 01/26/2025 ??2:28 PM Suture Removal Date/Time: 01/26/2025 2:21 PM Performed by: Rupali Jett RN Authorized by: Mila Mays MD ?? Consent: ??Consent obtained: ??Verbal ??Consent given by: ??Patient ??Risks, benefits, and alternatives were discussed: yes ?Risks discussed: ??Bleeding, pain and wound separation ??Alternatives discussed: ??Alternative treatment and observation Morrison protocol: ??Procedure explained and questions answered to [...] MD IN CLINIC/BEDSIDE ORD ERABLES Final Result * XR Lumbar Spine 2-3 Views (11/16/2024 10:45 AM EST) Anatomical Region Laterality Modality Spine, L-spine Radiographic Zandra ging 11/16/2024 10:4 5 AM EST Narrative 11/16/2024 11:18 AM EST ? [facility] ?[address] ?[place] [address] ?XRay Report ? Signed ? Patient: Tan,Gerber Roque ?MR#: [id number] ?? 2 ? : 1990 ?Acct:[id number] ? Age/Sex: 34 / M ?ADM Date: 02/26/25 ? Loc: HO.ED ? Attending Dr: ? Ordering Physician: Corvi,Arpit MD ?? Date of Service: 11/16/24 ?? Procedure(s): XR lumbar spine 2-3V ?? Accession Number(s): [id number] ? cc: Arpit Granado MD; Jennifer Osman [...] DD/ 1045 ? TD/TT: 11/16/24 1106 ? Healthcare Financial Analyst: ? Procedure Note Alyson Rodriguez - 11/16/2024 [place] [address] XRay Report Signed Patient: Gerber Maddox EMR#: [id number] 2 : 1990Acct:[id number] Age/Sex: 34 / MADM Date: 11/16/24 Loc: HO.ED Attending Dr: Ordering Physician: Arpit Granado MD Date of Service: 11/16/24 Procedure(s): XR lumbar spine 2-3V Accession Number(s): [id number] cc: Arpit Granado MD; [facility] EXAMINATION: XR LUMBOSACRAL SPINE CLINICAL INFORMATION: pain, [...] 11/16/24 1115 DD/ 1045 TD/TT: 11/16/24 1106 Healthcare Financial Analyst: [facility] External Provider IMG XR PROCEDURES Final Result * XR Thoracic Spine 2 Views (11/16/2024 10:45 AM EST) Anatomical Region Laterality Modality Spine, T-spine Radiographic Zandra ging 11/16/2024 10:4 5 AM EST Narrative 11/16/2024 11:16 AM EST ? [facility] ?[address] ?[place] [address] ?XRay Report ? Signed ? Patient: Gerber Maddox ?MR#: [id number] ?? 2 ? : 1990 ?Acct:[id number] ? Age/Sex: 34 / M ?ADM Date: 11/16/24 ? Loc: HO.ED ? Attending : ? Ordering Physician: Arpit Granado MD ?? Date of Service: 11/16/24 ?? Procedure(s): XR thoracic spine 2V ?? Accession Number(s): [id number] ? cc: Arpit Granado MD; Jennifer Osman ACCOUNT DEVELOPMENT ASSOCIATE ? EXAMINATION: ?? XR THORACIC SPINE [...] DD/ 1045 ? TD/TT: 11/16/24 1106 ? Healthcare Financial Analyst: ? Procedure Note Donotjimmyinterpreter, Image - 11/16/[address] [address] XRay Report Signed Patient: Gerber Maddox EMR#: [id number] 2 : 1990Acct:[id number] Age/Sex: 34 / MADM Date: 11/16/24 Loc: HO.ED Attending Dr: Ordering Physician: Arpit Granado MD Date of Service: 11/16/24 Procedure(s): XR thoracic spine 2V Accession Number(s): [id number] cc: Arpit Granado MD; [facility] EXAMINATION: XR THORACIC SPINE CLINICAL INFORMATION: [...] 11/16/24 1113 DD/ 1045 TD/TT: 11/16/24 1106 Healthcare Financial Analyst: [facility] External Provider IMG XR PROCEDURES Final Result * (ABNORMAL) Lipid Panel, Standard (11/27/2022 8:51 AM EST) Cholesterol, Total 193 <200 mg/dL [facility] [place] [facility] HDL Cholesterol 45 > OR = 40 mg/dL [facility] [place] [facility] Triglycerides 202(H) <150 mg/dL [facility] [place] [facility] Comment: If a non-fasting specimen was collected, consider repeat triglyceride testing on a fasting specimen if clinically indicated. Brandi et al. J. of Clin. Lipidol. 2015;9:129-169. LDL Cholesterol 116(H) mg/dL (calc) [facility] [place] [facility] Comment: Reference range: <100 Desirable range <100 mg/dL for primary prevention; ?? <70 mg/dL for patients with CHD or diabetic patients with > or = 2 CHD risk factors. LDL-C is now calculated using the Robin calculation, which is a validated novel method providing better accuracy than the Friedewald equation in the estimation of LDL-C. Anderson LOMELI et al. EMMETT. 2013;310(19): 4794-1961 (http://education.[employer]/faq/GDV558) Chol/HDLC Ratio 4.3 <5.0 (calc) [facility] [place] [facility] Non-HDL Cholesterol 148(H) <130 mg/dL (calc) [facility] [place] [facility] Comment: For patients with diabetes plus 1 major ASCVD risk factor, treating to a non-HDL-C goal of <100 mg/dL (LDL-C of <70 mg/dL) is considered a therapeutic option. Blood Venous blood specimen / Unknown 11/27/2022 8:51 AM EST 11/27/2022 8:51 AM EST Narrative [facility] - 11/27/2022 10:00 PM EST FASTING:NO FASTING: NO [facility] LAB BLOOD ORDERABLES Final Re sult [facility] [address], [place] [address] [facility] [place] [facility] [address] [facility], ([address]) [place] [address] * HIV AB/AG (11/10/2019 9:40 AM EST) [...] detection of this assay. ?? The [employer] Project Manager HIV Ag/Ab Combo assay result and supplemental assay results should be interpreted in conjunction with the patient's clinical presentation, history and other laboratory results. ??If the results are inconsistent with clinical evidence, additional testing is suggested to confirm the result. 11/10/2019 9:40 AM EST us Clarice Wong MD HISTORICAL/NON ORDERABLE LAB S Final Result [facility] [address] from Last 3 Months or Most Recently Relevant to Health Maintenance Insurance [facility] C3 HSN PARTIAL Care Teams Chief Operating Engineer Relationship Specialty Start Date End Date Natural BridgeJennifer, [facility] [address] [place] [address] PCP - General Family Medicine 05/16/22 Lela Wilson Melting OperatorGrocery Clerk 01/05/24
--- OUTSIDE RECORDS SUMMARY | 2025-01-26 15:11 | XMS_ITS | Encounter Summary ---
Author Organization [employer] Address [address] [address] [place] [address] Care Team Providers Care Ice Cream Machine Operator Name Role Phone Jennifer Osman [facility] Primary Care Provider [phone] Encounter Details Date Type Department Care Team (Late st Contact Info) Description 10/10/2022 Telephone [facility] [address] [facility] [place] [phone] Jennifer Osman FNP [address] [place] [address] Social History Tobacco Use Types Packs/Day Years [...] Description 01/30/2025 2:00 PM EDT Clinical Support [facility] [address] [place], [place] [address] [place] [address] documented as of this encounter Visit Diagnoses Not on filedocumented in this encounter Care Teams Ice Cream Machine Operator Relationship Specialty Start Date End Date Jennifer Osman FNP [address] [place] [address] PCP - General Family Medicine 05/16/22 Lela Wilson Tool And Die ManagerLead Front End Developer 01/05/24 documented as of this encounter
--- OUTSIDE RECORDS SUMMARY | 2025-01-26 15:11 | XMS_ITS | Encounter Summary ---
Author Organization [employer] Address [address] [facility] [address] [place] [address] Care Team Providers Care Laser Beam Machine Operator Name Role Phone Jacqui [facility] Primary Care Provider [phone] Encounter Details Date Type Department Care Team ([facility] st Contact Info) Description 01/23/2025 5:20 PM EDT Office Visit [facility] [address] [place] [address] Mila Weinstein MD [address] [place] [address] Infected wound Social History Tobacco Use Types [...] AM EDT documented as of this encounter Last Filed Vital Signs Vital Sign Reading Time Taken Comments Blood Pressure 142/83 01/23/2025 5:07 PM EDT Pulse 87 01/23/2025 5:07 PM EDT Temperature 36.7 ??C (98.1 ??F) 01/23/2025 5:07 PM ED T Respiratory Rate 22 01/23/2025 5:07 PM EDT Oxygen Saturation - - Inhaled Oxygen Concentration - - Weight 117 kg (257 lb) 01/23/2025 5:07 PM EDT Height - - Body Mass Index 36.88 11/23/2024 2:08 PM EST documented in this encounter Progress Notes * Mila Mays MD - 01/23/2025 5:20 PM EDT Images from the original note were not included. SUBJECTIVE: Gerber Maddox is a 34 y.o. year old male who presents for wound check . 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 HENT: Negative. Respiratory: Negative. Cardiovascular: Negative. Skin: Positive for wound. OBJECTIVE: Vitals: 01/23/25 1707 BP: (!) 142/83 Pulse: 87 Resp: 22 Temp: 98.1 ??F (36.7 ??C) TempSrc: Temporal Weight: 257 lb (117 kg) Physical Exam Constitutional: Appearance: Normal appearance. Cardiovascular: Rate and Rhythm: Normal rate and regular rhythm. Pulmonary: Effort: Pulmonary effort is normal. Breath sounds: Normal breath sounds. Abdominal: General: Abdomen is flat. Palpations: Abdomen is soft. Musculoskeletal: Legs: Comments: Erythema around wound with stiches warm to touch no drainage Neurological: Mental Status: He is alert. Follow Up: No follow-ups on file. Current Outpatient Medications on File Prior to Visit Medication Sig Dispense Refill benzoyl peroxide (PanOxyl Foaming Wash) 10 % external wash Wash from neck down once daily 142 g 2 Blood Pressure kit Use as instructed 1 kit 0 clindamycin (Cleocin T) 1 % external solution Apply topically 2 times daily. To affected areas on groin and chest 30 mL 1 cyclobenzaprine (Flexeril) 5 MG tablet Take 1-2 tablets three times daily as needed for muscle spasm 45 tablet 0 EPINEPHrine (Epipen) 0.3 MG/0.3ML injection syringe inject 0.3 milliliter by intramuscular route once as needed for anaphylaxis naproxen (Naprosyn) 500 MG tablet Take 1 tablet by oral route twice daily as needed for moderate pain 30 tablet 1 nicotine polacrilex (Commit) 4 MG lozenge Dissolve 1 lozenge (4 mg) in the mouth every 2 (two) hours if needed for smoking cessation (max. 20 lozenges/day). 72 lozenge 1 sildenafil (Viagra) 25 MG tablet Take 1 tablet (25 mg) by mouth if needed each day for erectile dysfunction. 60 tablet 1 No current facility-administered medications on file prior to visit. Problem List Items Addressed This Visit Infected wound I will treat patient with bactrim BID for one week, patient may return for stiches removal ED precautions reviewed with patient Relevant Medications sulfamethoxazole-trimethoprim (Bactrim DS) 800-160 MG tablet documented in this encounter Miscellaneous Notes * Assessment & Plan Note - Mila Mays MD - 01/23/2025 6:07 PM EDT Associated Problem(s): Infected wound I will treat patient with bactrim BID for one week, patient may return for stiches removal ED precautions reviewed with patient documented in this encounter Plan of Treatment Upcoming Encounters Date Type Department Care Team (Late st Contact Info) Description 01/30/2025 2:00 PM EDT Clinical Support [facility] [address] [place] [address] documented as of this encounter Visit Diagnoses Diagnosis Infected wound Posttraumatic wound infection not elsewhere classified documented in this encounter Additional Health Concerns Assessment Noted Time PHQ-9 Depression Total Score: 0 11/24/19 25 2:18 PM EST documented as of this encounter Care Teams Laser Beam Machine Operator Relationship Specialty Start Date End Date Jennifer Osman FNP [address] [place] [address] PCP - General Family Medicine 05/16/22 Lela Wilson FirepersonNeuropathologist 01/05/24 documented as of this encounter
[2025-02-03 15:03] LABS: Testosterone, Free 58.1 pg/mL (35.0-155.0); Testosterone, Total 412 ng/dL (250-1100)
== END 2025-01-26 14:21 | disposition home or self-care (01) ==
LOC: HO.HHCL 14:20
PROVIDERS: Visit Provider Urology
DX: N52.9 Male erectile dysfunction, unspecified (principal)
CPT/HCPCS: 36415; 84402; 84403

== ENCOUNTER 2025-03-02 15:29 | Outpatient (AMB) | payer MEDICAID, SELFPAY ==
--- NOTE | 2025-03-02 15:43 | MHC.OFFVIS ---
Intake Visit Reasons: 12w/labs Intake Note: Patient presents to office today for 12w follow up/labs 01/26 Total Testo:412 Free Tessto:58.1 Urology Medication: None Antibiotic Allergies: None Blood Thinners: None Riveter Automobile Brakes Required: No Accompanied by: Self / Same As Patient Allergies No Known Allergies Allergy (Verified 04/30/25 09:01) HPI Comments Details: 03/02/25--review testosterone levels which are within range total testosterone -01/26 Total Testo:412 Free Tessto:58.1 10/21/24--Gerber is a 34 year old male with complaints ED about a year. Comorbidity--Nicotine use since age 16 1ppd. IIEF score - 12. Discussed smoking cessation. H/O substance abuse, no current use. Denies methodone use. Frequent Marijuana use. Discussed trial of iCialis 5 mg daily. Will check testosterone levels. PFSH Medical History Hx of bronchitis Smoker ADD (attention deficit disorder) Epidermal cyst Surgical History History of surgery History of surgery on wrist Hx of surgical procedure Social History Are you a primary resident care aide to a significant other at home: No Do you presently have visiting nurse or other home services: No Alcohol intake: former Patient Tobacco Use Status: Current everyday Tobacco user Tobacco use type: Cigarette Years Smoked: 14 Smoked in Last 30 Days: Yes Use of substances other than those prescribed or required for medical reasons: No Substance Use Type: Marijuana Advance Directives: No Advance Directives Information Provided: Yes Review of Systems Const All systems reviewed & are unremarkable except as noted in HPI and below Reports no additional complaints Eyes Reports no additional complaints ENT Reports no additional complaints Card Reports no additional complaints Resp Reports no additional complaints GI Reports no additional complaints Reports as per HPI Musc Reports no additional complaints Skin/Breast Reports system reviewed and no additional complaints, except as documented Neuro Reports no additional complaints Psych Reports no additional complaints Endo Reports no additional complaints Lexx/Lymph Reports no additional complaints Aller/Immun Reports no additional complaints Assessment & Plan Assessment & Plan (1) Erectile dysfunction: Code(s): N52.9 - Male erectile dysfunction, unspecified Category: Medical (2) Nicotine dependence: Code(s): F17.200 - Nicotine dependence, unspecified, uncomplicated Category: Medical Plan Testosterone levels within normal limits Trial Daily Cialis 5mg, Nicotine cessation Patient Instructions: The patient had an opportunity to ask questions regarding treatment plan. The patient expressed understanding and agreement with the above treatment plan. The patient is aware they should contact our office by phone for worsening of their current condition or the appearance of new symptoms. Compliance is encouraged with any medications and followup testing that is ordered. It is a privilege to be allowed the opportunity to participate in the urologic care of your patient. If you have any questions or concerns regarding treatment for the above conditions please do not hesitate to contact me. The office telephone contact is [phone]. This note is constructed in part using voice recognition software. While every effort has been made to ensure accuracy instrument lens grinder apprentice errors may have been included. Yours sincerely, Karey Godinez MD Coding Level of Care Code Est Pt Level 3 (12332) Diagnoses Erectile dysfunction N52.9 Nicotine dependence F17.200
--- OUTSIDE RECORDS SUMMARY | 2025-03-02 17:58 | XMS_ITS | Clinical Summary ---
Author Organization [facility] Address [address] [place] [address] Phone Care Team Providers Care Slag Skimmer Name Role Phone Unavailable Primary Care Provider [...]
== END 2025-03-02 16:23 | disposition home or self-care (01) ==
LOC: HO.HUSH 15:29
PROVIDERS: PCP Registered Nurse; Visit Provider Urology
DX: N52.9 Male erectile dysfunction, unspecified (principal); F17.200 Nicotine dependence, unspecified, uncomplicated
CPT/HCPCS: 99213

== ENCOUNTER → 2025-03-02 15:29 | Outpatient (BNVA) | payer MEDICAID, SELFPAY | PROVIDERS: PCP Registered Nurse; Visit Provider Urology | DX: N52.9 Male erectile dysfunction, unspecified (principal); F17.210 Nicotine dependence, cigarettes, uncomplicated | CPT/HCPCS: 99212 ==

== ENCOUNTER 2025-04-20 13:50 | Outpatient (REF) | payer MEDICAID, SELFPAY ==
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
--- NOTE | ~2025-04-20 | XR_ITS ---
EXAMINATION: XR THORACIC SPINE CLINICAL INFORMATION: PAIN COMPARISON: November 16, 2024 TECHNIQUE: 2 views of the thoracic spine were obtained. FINDINGS: There is no fracture or bone destruction seen and the vertebral alignment is normal. There is no disc space narrowing. There is no abnormality of the paraspinal soft tissues. XR/XR thoracic spine 2V IMPRESSION: Unremarkable examination, somewhat limited by bony overlap secondary to ribs and motion.. Lower thoracic spine is not included on the x-rays. Electronically signed by: Juanito Rincon MD 04/20/2025 03:23 PM EDT
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
--- OUTSIDE RECORDS SUMMARY | 2025-04-20 14:05 | XMS_ITS | Clinical Summary ---
Author Organization [facility] Address [address] [place] [address] Phone Care Team Providers Care Maintenance Instructor Name Role Phone Unavailable Primary Care Provider [...] 03/05/2018 03/05/2008, 07/06/2007, 07/26/2002, Additional history exists COVID-19 Vaccine (2023- season) 2024 Influenza Vaccines (#1) 2025 HIB Vaccines Completed 09/20/1991, 06/22, 02/04/1991, Additional [...]
== END 2025-04-20 13:51 | disposition home or self-care (01) ==
LOC: HO.HHCX 13:50
PROVIDERS: Visit Provider Family Medicine
DX: M54.42 Lumbago with sciatica, left side (principal); M25.552 Pain in left hip; M54.6 Pain in thoracic spine
CPT/HCPCS: 72070; 72100; 73502

== ENCOUNTER → 2025-04-20 13:55 | Outpatient (BNV) | payer MEDICAID, SELFPAY | PROVIDERS: Visit Provider Radiology Diagnostic Radiology | DX: M25.552 Pain in left hip (principal); M54.50 Low back pain, unspecified; M54.6 Pain in thoracic spine | CPT/HCPCS: 72070; 72100; 73502 ==

== ENCOUNTER 2025-04-30 08:50 | Emergency (ER) | payer MEDICAID, SELFPAY ==
--- NOTE | ~2025-04-30 | XR_ITS ---
CLINICAL HISTORY: pain s p trauma 3 view right shoulder Comparison: None provided Findings: Bones intact. No dislocations. [id number] degenerative change of the glenohumeral joint. No erosions. No radiopaque foreign body. IMPRESSION: 1. No acute findings 2. [id number]-[id number] degenerative change of the glenohumeral joint. This document has been electronically signed by: Ankit Morrow MD on 04/30/2025 10:19:18
--- NOTE | ~2025-04-30 | XR_ITS ---
CLINICAL HISTORY: pain 2 view chest x-ray Comparison: None provided Findings: The lungs are clear. Heart size is normal. No acute fracture. IMPRESSION: 1. No acute findings. This document has been electronically signed by: Ankit Morrow MD on 04/30/2025 10:48:52
--- NOTE | ~2025-04-30 | XR_ITS ---
CLINICAL HISTORY: pain 2 view right clavicle Comparison: None provided Findings: Old right clavicular fracture, healed. Degenerative change of the AC joint and glenohumeral joint. Impression: Old healed right clavicular fracture with degenerative changes as detailed. This document has been electronically signed by: Ankit Morrow MD on 04/30/2025 10:45:34
[2025-04-30 08:57] VITALS: BP 133/79; PULSE 106; RESP 20; TEMP 36.4; O2SAT 97; BMI 27.3
--- OUTSIDE RECORDS SUMMARY | 2025-04-30 09:27 | XMS_ITS | Clinical Summary ---
Author Organization [facility] Address [address] [place] [address] Phone Care Team Providers Care Vp Ad Products And Planning Name Role Phone Unavailable Primary Care Provider [...] of 2 - 13+ 2-dose series) 2003 HPV Vaccines (1 - 3-dose SCDM series) 2017 DTaP,Tdap,and Td Vaccines (8 - Td or Tdap) 03/05/2018 03/05/2008, 07/06/2007, 07/26/2002, Additional history exists COVID-19 Vaccine (2023- season) 2024 Influenza Vaccines (#1) 2025 HIB Vaccines Completed 09/20/1991, 06/22, 02/04/1991, Additional history exists IPV Vaccines Completed 01/06/1996, 01/1992, 02/04/1991, Additional history exists MMR Vaccines Completed 01/06/1996, 09/20/1991 Meningococcal Vaccine Completed 07/06/2007 Hepatitis A Vaccines Aged Out No long er eligible based on patient's age to complete this topic Men B Vaccine Aged Out No longer elig ible based on patient's age to complete this topic Pneumococcal Vaccine Aged Out No long er eligible based on patient's age to complete this topic
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
--- NOTE | 2025-04-30 09:40 | ED_ITS ---
HPI - Extremity Problem General Chief complaint: Extremity Injury, Upper Stated complaint: right shoulder injury Time Seen by Provider: 04/30/25 09:09 Source: patient and RN notes reviewed Mode of arrival: ambulatory Limitations: no limitations History of Present Illness ED Provider: Smiley Cabrera PA-C HPI Narrative: This is a 34-year-old male, with no known medical problems, who presents emergency department with complaints of right shoulder/clavicle pain since yesterday. Patient states that he was at his home, gardening, when suddenly his son jumped on his back and patient landed forward onto his right shoulder and right clavicle. He immediately felt pain in this region. Denies taking any medications prior to his arrival. Denies any head strike or LOC. He is not on anticoagulation. Pain worsens with palpation and movement of the right shoulder. No other complaints or concerns at this time. MD Complaint: extremity pain Pain Consistency: constant Location: upper extremity Quality: aching Radiation: none Relieving factors: nothing Exacerbating factors: nothing Associated symptoms: denies other symptoms Related Data Previous Rx's ?Medication ?Instructions ?Recorded albuterol sulfate 90 mcg/actuation 2 puff inhalation Q ID PRN 05/08/21 aerosol inhaler shortness of breath or wheez ing #6.7 grams albuterol sulfate 90 mcg/actuation 2 puff inhalation Q 6H PRN 04/02/22 aerosol inhaler shortness of breath or wheez ing #8.5 grams diphenhydramine HCl 25 mg capsule 25 mg PO TID PRN itc jonnathan #30 caps 07/30/22 (Benadryl) lidocaine 5 % topical patch 1 patch topical DAILY #15 ea 01/26/24 (Lidoderm) naproxen 500 mg tablet 500 mg PO Q8-12H PRN pain (s martínez 01/26/24 score 4-6) #14 tabs cyclobenzaprine 5 mg tablet 5 mg PO Q8H PRN muscle adore n #7 tabs 11/16/24 lidocaine 5 % topical patch 1 patch topical DAILY #15 ea 11/16/24 (Lidoderm) tadalafil 5 mg tablet 5 mg PO DAILY 90 days #90 ta bs 03/02/25 sildenafil 100 mg tablet 100 mg PO ONCE PRN sexual ac tivity 03/03/25 #30 tabs Allergies Allergy/AdvReac Type Severity Reaction Status Date / Time No Known Allergies Allergy Verified 04/30/25 09:01 Review of Systems Review of Systems: Yes all other systems are reviewed and are negative Constitutional: Constitutional: Reports as per [facility] Past Medical History Attestation statement: The following information was validated with the patient. Medical History Hx of bronchitis Smoker ADD (attention deficit disorder) Epidermal cyst Surgical History History of surgery History of surgery on wrist Hx of surgical procedure Social History Social History Are you a primary reservoir caretaker to a significant other at home: No Do you presently have visiting nurse or other home services: No Alcohol intake: former Patient Tobacco Use Status: Current everyday Tobacco user Tobacco use type: Cigarette Years Smoked: 14 Smoked in Last 30 Days: Yes Use of substances other than those prescribed or required for medical reasons: No Substance Use Type: Marijuana Advance Directives: No Advance Directives Information Provided: Yes Physical Exam Vital Signs: Vital Signs: Last Vital Signs Temp 97.6 F 04/30/25 11:19 Pulse 106 H 04/30/25 11:19 Resp 20 04/30/25 11:19 BP 133/79 04/30/25 11:19 Pulse Ox 97 04/30/25 11:19 O2 Del Method Room Air 04/30/25 11:19 BMI result Body Mass Index 27.3 Const: General: cooperative, comfortable and no acute distress Orientation/consciousness: patient oriented x3 Limitations: no limitations HEENT: Head: Yes normal to inspection, Yes normocephalic and Yes atraumatic Ears: hearing grossly normal bilaterally General nose exam: Normal external nose present Face and sinus: Yes normal facial exam Mouth: Normal oral and palatal mucosa present, oropharynx normal and moist mucous membranes Throat: Yes posterior oropharynx normal Eyes: General: appearance normal, both eyes and all related structures Eyelids: Yes eyelids normal Conjunctivae: conjunctivae normal Sclerae: sclerae normal Pupils: Equal, round and reactive pupils present EOM: EOMs intact bilaterally Neck: Neck: Yes normal visual inspection, Yes full ROM and Yes no lymphadenopathy Lymphatic: no lymphadenopathy noted Chest: Chest palpation & inspection: normal inspection of the chest Resp: Effort & Inspection: normal respiratory effort and able to speak in complete sentences Auscultation: clear to auscultation bilaterally, no crackles, no rales, no rhonchi and no wheezes Cardio: Rate: regular rate Rhythm: regular rhythm Heart sounds: S1 normal heart sound present and S2 normal heart sound present GI: Inspection: Yes normal to inspection Skin: General skin exam: no rashes or lesions noted Trauma: no lacerations or abrasions Wounds: no wounds Neuro: General: patient oriented x3 and moves all extremities Cranial nerves: Yes Equal, round and reactive pupils present Extrem: Other: Right shoulder with no obvious bony deformity or swelling. Decreased range of motion of the right shoulder secondary to pain. No tenderness palpation along the right AC joint. Patient has tenderness palpation along the proximal clavicle with slight edema noted, no bony step-off or deformity. No crepitus. No skin tenting. No open wounds or lacerations. General: Yes normal to inspection Right upper extremity: normal to inspection Left upper extremity: normal to inspection Right lower extremity: normal to inspection Left lower extremity: normal to inspection Medical Decision Making Medical Decision Making MDM Narrative: This is a 34-year-old male who presents emergency department for evaluation of right shoulder/clavicle pain since yesterday. Patient states that while he was out side in his home gardening his son jumped on his back and he landed onto his right shoulder and right clavicle. He immediately had pain in these regions. On arrival, patient mildly tachycardic at 106bpm likely secondary to pain. Right shoulder x-ray was obtained prior to my evaluation however given pain overlying the proximal clavicle region, will obtain clavicle x-ray and chest x- ray for further investigation for any bony injury. He does have mild edema noted along the proximal clavicle however no bony step-off, no crepitus. No skin tenting. No open wounds. Differential diagnoses include fracture, contusion, sprain, strain. Course: Chest x-ray revealing no acute findings, grade shoulder revealing [id number] degenerative changes of the glenohumeral joint. There is an old healed right clavicular fracture with degenerative changes, patient has no history of this therefore we are treating this is a new fracture. Discussed with patient, placed in sling. Given strict return precautions. Advised to follow-up with Orthopedics. No other complaints or concerns at this time. Differential Diagnosis Differential Diagnoses: The differential diagnosis associated with the presentation includes See above Radiology Impression Discussion of test interpretation with radiology: I have reviewed the radiologist's reading. Radiologist Impression: Findings: Old right clavicular fracture, healed. Degenerative change of the AC joint and glenohumeral joint. Impression: Old healed right clavicular fracture with degenerative changes as detailed. This document has been electronically signed by: Ankit Morrow MD on 04/30/2025 10:45:34 Dictated By: Ankit Morrow MD Findings: Bones intact. No dislocations. [id number] degenerative change of the glenohumeral joint. No erosions. No radiopaque foreign body. IMPRESSION: 1. No acute findings 2. [id number] degenerative change of the glenohumeral joint. This document has been electronically signed by: Ankit Morrow MD on 04/30/2025 10:19:18 Dictated By: Ankit Morrow MD Findings: The lungs are clear. Heart size is normal. No acute fracture. IMPRESSION: 1. No acute findings. This document has been electronically signed by: Ankit Morrow MD on 04/30/2025 10:48:52 Dictated By: Ankit Morrow MD Discharge Plan Discharge Clinical Impression: Right clavicle fracture Patient Disposition: Home, Self-Care Instructions: Clavicle Fracture (ED) Additional Instructions: You were seen in the emergency department after injuring your right shoulder/clavicle region. Your x-ray reveals a possible old fracture however given your physical exam today, and no previous injury, we are treating this as a new fracture. Please keep your arm in a sling until you follow-up with the armor reconnaissance specialist. Call on Thursday to make an appointment. Rest, ice, and alternate between ibuprofen and or Tylenol as needed for pain and symptoms. If any new or worsening symptoms occur including but not limited to severe shortness for breath, chest pain, increased swelling, please seek emergent care. Prescriptions: No Action tadalafil 5 mg tablet 5 mg PO DAILY 90 Days Qty: 90 3RF Rx Instructions: USE COUPON NOT INSURANCE [id number] [facility] [id number] Member [id number] sildenafil 100 mg tablet 100 mg PO ONCE PRN (Reason: sexual activity) Qty: 30 1RF Rx Instructions: use 100 mg 30 minutes to 1 hour prior to sexual activity NO MORE THAN TWICE A WEEK number 30 tablets with 1 refill USE [employer] COUPON NOT INSURANCE [id number] [facility] [id number] Member [id number] albuterol sulfate 90 mcg/actuation HFA aerosol inhaler 2 puff inhalation QID PRN (Reason: shortness of breath or wheezing) Qty: 6.7 0RF albuterol sulfate 90 mcg/actuation HFA aerosol inhaler 2 puff inhalation Q6H PRN (Reason: shortness of breath or wheezing) Qty: 8.5 0RF diphenhydramine HCl [Benadryl] 25 mg capsule 25 mg PO TID PRN (Reason: itching) Qty: 30 0RF lidocaine [Lidoderm] 5 % adhesive patch,medicated 1 patch topical DAILY Qty: 15 0RF Rx Instructions: leave on most painful area for up to 12 hrs naproxen 500 mg tablet 500 mg PO Q8-12H PRN (Reason: pain (scale score 4-6)) Qty: 14 0RF cyclobenzaprine 5 mg tablet 5 mg PO Q8H PRN (Reason: muscle pain) Qty: 7 0RF lidocaine [Lidoderm] 5 % adhesive patch,medicated 1 patch topical DAILY Qty: 15 0RF Rx Instructions: leave on most painful area for up to 12 hrs Referrals: [facility] [place] [facility] [Provider Group] Interventions: ED Discharge Assessment Last Done: 04/30/25 11:19 Discharge Date/Time: 04/30/25 11:21 Print Language: Serbian
--- NOTE | 2025-04-30 09:47 | PC.NURSE ---
this nurse went in to see patient who was currently not in room, will check back shortly to see if pt was in xray or bathroom
--- NOTE | 2025-04-30 10:07 | PC.NURSE ---
patient a&ox3, pt endorses 10/10 rt shoulder pain, denies any medications at home to help with pain. 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 xray has been performed, pt awaiting provider evaluation
[2025-04-30 11:19] VITALS: BP 133/79; PULSE 106; RESP 20; TEMP 36.4; O2SAT 97
== END 2025-04-30 11:21 | disposition home or self-care (01) ==
PROVIDERS: Emergency Provider Emergency Medicine; PCP Registered Nurse
DX: S42.001A Fracture of unspecified part of right clavicle, initial encounter for closed fracture (principal); R07.89 Other chest pain; M25.511 Pain in right shoulder; F17.210 Nicotine dependence, cigarettes, uncomplicated; X58.XXXA Exposure to other specified factors, initial encounter; Y93.H2 Activity, gardening and landscaping; Y92.007 Garden or yard of unspecified non-institutional (private) residence as the place of occurrence of the external cause; Y99.8 Other external cause status
CPT/HCPCS: 71046; 73000; 73030; 99283; 99284

== ENCOUNTER → 2025-04-30 09:05 | Outpatient (BNV) | payer MEDICAID, SELFPAY | PROVIDERS: Emergency Provider Emergency Medicine; PCP Registered Nurse; Visit Provider Radiology Vascular & Interventional Radiology | DX: R07.9 Chest pain, unspecified (principal); M19.011 Primary osteoarthritis, right shoulder | CPT/HCPCS: 71046; 73000; 73030 ==

== ENCOUNTER 2025-06-22 13:53 | Outpatient (REF) | payer MEDICAID, SELFPAY ==
--- NOTE | 2025-06-22 | EMG_ITS ---
Chief complaint: Low back pain with radiation down lower extremity with paresthesia Reason for referral: Lumbago with sciatica pain on the left side Referred by:?Blanka Dewitt MD Procedure done: Left lower extremity NCS/EMG Left tibial and peroneal motor studies were performed left superficial peroneal, sural, and median lateral mixed plantars sensory studies were performed tibial and peroneal F responses were obtained and tibial H-reflex was obtained. EMG needle examination was performed. Left peroneal motor conduction velocity was in 20s across fibular head was slightly delayed distal latencies. Sensory studies did not reveal any significant abnormality. Decreased recruitment and long duration potentials were noted in tibialis anterior and ED B. 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 Otherwise no significant abnormality noted. MTDD
--- OUTSIDE RECORDS SUMMARY | 2025-06-22 15:39 | XMS_ITS | Encounter Summary ---
Author Organization [facility] Address [email or web address] [place] [address] Phone Care Team Providers Care Crusher Setter Name Role Phone Pcp, Unknown Primary Care Provider Unavailabl e Encounter Details Date Type Department Care Team (Late st Contact Info) Description 05/25/2025 Procedure [facility], [facility] Scan - [facility] [address] [place], [place] [id number] Social History Tobacco Use Types Packs/Day Years Used Date Smoking Tobacco: Never Assessed Education Answer Date Recorded Are you interested in more education? Not on judy e 05/26/2025 Are you concerned about learning? Not on file 05/26/2025 No 05/26/2025 No 05/26/2025 Food Answer Date Recorded Within the past 6 months we worried whether our food would run out before we got money to buy more. Unable to assess 025 Within the past 6 months the food we bought just didn't last and we didn't have enough money to get more. Unable to assess 05/26/2025 Residential Stability Answer Date Recor ded What is your housing situation today? Unable to assess 05/26/2025 How many times have you moved in the past 12 thu ths? Unable to assess 05/26/2025 Paying for Meds Answer Date Recorded Do you have trouble paying for medicines? Unable to assess 05/26/2025 Paying Utility Bills Answer Date Record ed Do you have trouble paying y our heating or electricity bill? Unable to assess 05/26/2025 Transportation Answer Date Recorded Has the lack of transportati on kept you from medical appointments or from getting medications? Unable to assess 05/26/2025 Digital Access Answer Date Recorded No 05/26/2025 No 05/26/2025 Do you have reliable internet access at home? Un able to assess 05/26/2025 Do you have a device (e.g., phone, tablet, computer) with a working camera? Unable to assess 05/26/2025 Intimate Partner Violence Answer Date R ecorded Are you denied basic needs s uch as food, clothing, or medical care? Patient unable to respond 05/26/2025 In the past 12 months have y ou been in a relationship with a person who hurts, threatens, or tries to control you? Patient unable to respond 05/26/2025 Are you denied basic needs s uch as food, clothing, or medical care? Patient unable to respond 05/26/2025 In the past 12 months have y ou been in a relationship with a person who hurts, threatens, or tries to control you? Patient unable to respond 05/26/2025 Sex and Gender Information Value Date Recorded Sex Assigned at Male 05/26/2025 12:47 AM EDT Legal Sex Male 9:03 PM EDT Gender Identity Male 05/26/2025 12:47 AM EDT Sexual Orientation Straight 05/26/2025 12 :47 AM EDT documented as of this encounter Plan of Treatment Not on file documented as of this encounter Visit Diagnoses Not on filedocumented in this encounter Care Teams Crusher Setter Relationship Specialty Start Date End Date Pcp, Unknown PCP - General 05/25/25 documented as of this encounter Additional Source Comments The information contained in this document represents components of the legal health record. It is not the complete legal health record.[facility]
--- OUTSIDE RECORDS SUMMARY | 2025-06-22 15:39 | XMS_ITS | Clinical Summary ---
Author Organization [employer] Address [address] [facility] [address] [place] [address] Care Team Providers Care Taxicab Driver Name Role Phone Jennifer Osman [facility] Primary Care Provider [phone] Allergies No known active allergies Medications * [...] Use as instructed 1 kit 023 Active clindamycin (Cleocin T) 1 % external [...] for moderate pain 30 tablet 1 025 Active Diclofenac Sodium 1 % gel Apply 2 g topically if needed in the morning, at noon, in the evening, and at bedtime (pain). 150 g 1 025 Active lidocaine (Lidoderm) 5 % patch Apply 2 patches topically if needed each day for mild pain. Remove & discard patch within 12 hours or as directed by MD. 60 patch 1 025 Active sildenafil (Viagra) 100 MG tablet Take 1 tablet by mouth if needed (sexual activity). Take 30 minutes to 1 hour prior to sexual activity. No more than twice a week 025 Active sildenafil (Viagra) 25 MG tabletIndicatio ns:Erectile dysfunction, unspecified erectile dysfunction type Take 1 tablet (25 mg) by mouth if needed each day for erectile dysfunction. 60 tablet 1 024 2024 Discontinued(M ed list cleanup (will not trigger notification to Pharmacy)) Active Problems Problem Noted Date Diagnosed Date [...] Diagnosed Date Resolved Date Severe alcohol dependence (CMS/HCC) 11/13/2022 12/01/2022 Encounters Date Type Department Care Team Description 06/08/2025 2:30 PM EDT Office Visit [address] [address] Deidra Jung FNP Follow-up examination (Primary Dx); Anxiety; Acute back pain, unspecified back location, unspecified back pain laterality; Neck pain, acute 06/08/2025 Travel 05/29/2025 Patient Outreach [address] [address] Jennifer Osman FNP Transition Of Care (Tcm) (HDF scheduled) 05/08/2025 Orders Only [address] [address] Pratibha Wheeler RN 05/05/2025 11:00 AM EDT Office Visit [address] [address] Jennifer Osman FNP Acute pain of right shoulder (Primary Dx); Closed nondisplaced fracture of right clavicle, unspecified part of clavicle, initial encounter 05/05/2025 Travel 05/02/[address] [address] Simi Carey RN ER Follow-up 04/21/2025 Orders Only [address] [address] Blanka Dewitt DO Acute bilateral low back pain with left-sided sciatica (Primary Dx) 04/20/2025 1:20 PM EDT Office Visit [facility] [address] Blanka Dewitt DO Acute bilateral low back pain with left-sided sciatica (Primary Dx); Acute pain of left hip; Acute right-sided low back pain without sciatica 04/20/2025 Telephone [facility] [address] Blanka Dewitt, DO IMAGING RESULTS AND PLAN 04/20/2025 Travel from Last 3 Months Immunizations Immunization [...] Used Date Smoking Tobacco: Every Day Cigarettes Passive Smoke Exposure: Current Smokeless Tobacco: Never Tobacco Cessation:Ready to Q uit: Not Asked; Counseling Given: Not Answered Alcohol Use Standard Drinks/Week Comments Not Currently 0 (1 standard drink = 0.6 oz pur e alcohol) Alcohol Answer Date Recorded How often do you have a drink containing alcohol ? 0 06/08/2025 How many drinks containing a lcohol do you have on a typical day when you are drinking? 4 06/08/2025 How often do you have six or more drinks on one occasion? 0 06/08/2025 Depression Answer Date Recorded Patient Health Questionnaire-9 Score 0 11/23/2024 Patient Health Questionnaire-9 Score 0 11/23/2024 Last PHQ-9: Questionnaire Data Not on file 0 11/23/2024 Housing Stability Answer Date Recorded What is your housing situation today? I have aylin kyle 06/08/[address] you li ve. Do you have problems with any of the following? None of the above 06/08/2025 Food Insecurity Answer Date Recorded Within the past 12 months, y ou worried that your food would run out before you got money to buy more: Never True 06/08/2025 Within the past 12 months,th e food you bought just didn't last and you didn't have enough money to get more: Never True Transportation Answer Date Recorded In the past 12 months, has l ack of transportation kept you from medical appts, meetings, work or from getting things needed for daily living? Yes, it has kept me from non-medical meetings, work, or getting things that I need 06/08/2025 Utilities Answer Date Recorded In the past 12 months, has t he electric, gas, oil or water company threatened to shut off services in your home? I am not sure 06/08/2025 Depression Answer Date Recorded Patient Health Questionnaire-2 Score 0 11/23/2024 Internet Access Answer Date Recorded Internet Access Q1 Yes 06/08/2025 Internet Access Q2 Not on file 06/08/2025 Sex and Gender Information Value Date Recorded Sex Assigned at Male 07/21/2022 10:21 AM EDT Legal Sex Male 10:21 AM EDT Gender Identity Male 07/21/2022 10:21 AM EDT Sexual Orientation Straight 07/21/2022 10 :21 AM EDT Last Filed Vital Signs Vital Sign Reading Time Taken Comments Blood Pressure 136/78 06/08/2025 2:23 PM EDT Pulse 87 06/08/2025 2:23 PM EDT Temperature 37 C (98.6 F) 06/08/2025 2:23 PM EDT Respiratory Rate 16 06/08/2025 2:23 PM EDT Oxygen Saturation 97% 06/08/2025 2:23 PM EDT Inhaled Oxygen Concentration - - Weight 90 kg (198 lb 8 oz) 06/08/2025 2:23 PM ED T Height 182.9 cm (6') 06/08/2025 2:23 PM EDT Body Mass Index 26.92 06/08/2025 2:23 PM EDT Plan of Treatment Health Maintenance Due Date Last Done Comments Hepatitis B Vaccines (3 of 3 - 3-dose series) 04/11/1997 02/14/1997, 03/23/1996, 03/01/1996 Family Planning (PISQ) 2005 HPV Vaccines (1 - Male 3-dose series) 2005 Pneumococcal Vaccine: Pediatrics (0 to 5 Years) and At-Risk Patients (6 to 49) Years (1 of 2 - PCV) 2009 COVID-19 Vaccine (3 - season) 2025 01/03/2022, 12/13/2021 Influenza Vaccine (#1) 2025 06/22/2014 Depression Screening 11/23/2025 11/23/2024, 11/24/19 Alcohol/Substance Use Screening 06/08/2026 06/08/2025 Disability Screening 06/08/2026 06/08/2025 SDOH Screening 06/08/2026 06/08/2025 Tobacco Screening 06/08/2026 06/08/2025 Lipid Panel 11/28/2027 11/27/2022, 10/11/2021 DTaP/Tdap/Td Vaccines [...] Meningococcal Vaccine Completed 07/06/2007 HIV Screening Completed 05/02/2025, 11/10/2019 Hepatitis C Screening Completed 05/02/2025 Hepatitis A Vaccines Aged Out No long [...] Procedure Name Priority Date/Time Associated Diagnosis Comments HIV ANTIBODY/ANTIGEN ([facility]) Routine 05/02/2025 HEPATITIS C ANTIBODY ([place] [facility]) Routine 05/02/2025 SYPHILIS ABS ([place] [facility]) Routine 05/02/2025 CHLAMYDIA/GONORRHEA - URINE ([place] [facility]) Routine 05/02/2025 CHLAMYDIA/GONORRHEA THROAT SWAB ([place] [facility]) Routine 05/02/2025 XR CHEST 2 VIEWS Routine 04/30/2025 10:4 8 AM EDT XR CLAVICLE RIGHT Routine 04/30/2025 10: 45 AM EDT XR SHOULDER 2+ VIEWS RIGHT Routine 04/30/2025 10:19 AM EDT XR THORACIC SPINE 2 VIEWS Routine 04/20/2025 [...] Routine 11/27/2022 8:51 AM EST Healthcare maintenance from Last 3 Months or Most Recently Relevant to Health Maintenance Results * Chlamydia/Gonorrhea Throat Swab ([place] [facility]) (05/02/2025) Chlamydia Throat Swab Negative Gonorrhea Throat Swab Negative Swab 05/02/2025 us Historical Provider LAB MICROBIOLOGY - GENERA L ORDERABLES Final Result * Chlamydia/Gonorrhea, Urine ([place] [facility]) (05/02/2025) Chlamydia, Urine Negative Negative, Indeterminate, None Detected, Invalid, Specimen unsatisfactory for evaluation, Weakly Positive, 2+ Gonorrhea, Urine Negative Negative, Indeterminate, None Detected, Invalid, Specimen unsatisfactory for evaluation, Weakly Positive, 2+ Urine 05/02/2025 Result [facility] MD LAB URINE ORDERABLES Janel l Result * Syphilis Antibodies (DPH) (05/02/2025) Pathologist [facility] Syphilis Abs Nonreactive Borderline, Nonreactive, Weakly Reactive, Inconclusive, Specimen unsatisfactory for evaluation Blood Venous blood specimen / Unknown 05/02/2025 Result [facility] MD LAB BLOOD ORDERABLES Janel l Result * Hepatitis C Antibody ([place] DP) (05/02/2025) Pathologist [facility] Hepatitis C Ab Nonreactive Blood 05/02/2025 Result [facility] MD LAB BLOOD ORDERABLES Janel l Result * HIV Ab/Ag ([facility]) (05/02/2025) Pathologist [facility] HIV Ag/Ab Nonreactive Blood 05/02/2025 Result [facility] MD LAB BLOOD ORDERABLES Edit ed Result - Final * XR Chest 2 Views (04/30/2025 10:48 AM EDT) Anatomical Region Laterality Modality Chest Radiographic Zandra ging 04/30/2025 10:4 8 AM EDT Narrative 04/30/2025 10:50 AM EDT [address] [address] XRay Report Signed Patient: Gerber Maddox MR#: [id number] 2 : 1990 Acct:[id number] Age/Sex: 34 / M ADM Date: 04/30/25 Loc: .ED Attending Dr: Ordering Physician: Smiley Cabrera Date of Service: 04/30/25 Procedure(s): XR chest 2V Accession Number(s): [id number] cc: Smiley Cabrera; [facility] CLINICAL HISTORY: pain 2 view chest x-ray Comparison: None provided Findings: The lungs are clear. Heart size is normal. No acute fracture. IMPRESSION: 1. No acute findings. This document has been electronically signed by: Ankit Morrow MD on 04/30/2025 10:48:52 Dictated By: Ankit Morrow MD Signed By: <Electronically signed by Ankti Morrow MD in OV> 04/30/251048 DD/ TD/TT: 04/30/251047 Drug Safety Scientist: Procedure Note Michael, Alyson - 04/30/2025 [place] [address] XRay Report Signed Patient: Gerber Maddox EMR#: [id number] 2 : 1990Acct:[id number] Age/Sex: 34 / MADM Date: 04/30/25 Loc: .ED Attending Dr: Ordering Physician: Smiley Cabrera Date of Service: 04/30/25 Procedure(s): XR chest 2V Accession Number(s): [id number] cc: Smiley Cabrera; [facility] CLINICAL HISTORY: pain 2 view chest x-ray Comparison: None provided Findings: The lungs are clear. Heart size is normal. No acute fracture. IMPRESSION: 1. No acute findings. This document has been electronically signed by: Ankit Mrorow MD on 04/30/2025 10:48:52 Dictated By: Ankit Morrow MD Signed By: <Electronically signed by Ankit Morrow MD in OV> 04/30/25 104 DD/ 47 TD/TT: 04/30/251047 Drug Safety Scientist: [facility] External Provider IMG XR PROCEDURES Edited Result - Final * XR Clavicle Right (04/30/2025 10:45 AM EDT) Anatomical Region Laterality Modality Body, Clavicle Right Radiographic Zandra ging 04/30/2025 10:4 5 AM EDT Narrative 04/30/2025 10:47 AM EDT [address] [address] XRay Report Signed Patient: Gerber Maddox MR#: [id number] 2 : 1990 Acct:[id number] Age/Sex: 34 / M ADM Date: 04/30/25 Loc: HO.ED Attending Dr: Ordering Physician: Smiley Cabrera Date of Service: 04/30/25 Procedure(s): XR clavicle RT Accession Number(s): [id number] cc: Smiley Cabrera; [facility] CLINICAL HISTORY: pain 2 view right clavicle Comparison: None provided Findings: Old right clavicular fracture, healed. Degenerative change of the AC joint and glenohumeral joint. Impression: Old healed right clavicular fracture with degenerative changes as detailed. This document has been electronically signed by: Ankit Morrow MD on 04/30/2025 10:45:34 Dictated By: Ankit Morrow MD Signed By: <Electronically signed by Ankit Morrow MD in OV> 04/30/25 1046 DD/ 1045 TD/TT: 04/30/25 104 Drug Safety Scientist: Procedure Note Donotuseinterpreter, Image - 04/30/[address] [address] XRay Report Signed Patient: Gerber Maddox EMR#: [id number] 2 : 1990Acct:[id number] Age/Sex: 34 / MADM Date: 04/30/25 Loc: HO.ED Attending Dr: Ordering Physician: Smiley Cabrera Date of Service: 04/30/25 Procedure(s): XR clavicle RT Accession Number(s): [id number] cc: Smiley Cabrera; [facility] CLINICAL HISTORY: pain 2 view right clavicle Comparison: None provided Findings: Old right clavicular fracture, healed. Degenerative change of the AC joint and glenohumeral joint. Impression: Old healed right clavicular fracture with degenerative changes asdetailed. This document has been electronically signed by: Ankit Morrow MD on 04/30/2025 10:45:34 Dictated By: Ankit Morrow MD Signed By: <Electronically signed by Ankit Morrow MD in OV> 04/30/25 1046 DD/ 1045 TD/TT: 04/30/25 1045 Drug Safety Scientist: [facility] External Provider IMG XR PROCEDURES Edited Result - Final * XR Shoulder 2+ Views Right (04/30/2025 10:19 AM EDT) Anatomical Region Laterality Modality Upper Extremities, Shoulder Right Radi ographic Imaging 04/30/2025 10:1 9 AM EDT Narrative 04/30/2025 10:20 AM EDT [place] [address] XRay Report Signed Patient: Gerber Maddox MR#: [id number] 2 : 1990 Acct:[id number] Age/Sex: 34 / M ADM Date: 04/30/25 Loc: HO.ED Attending Dr: Ordering Physician: Arpit Granado MD Date of Service: 04/30/25 Procedure(s): XR shoulder RT min 2V Accession Number(s): [id number] cc: Arpit Granado MD; [facility] CLINICAL HISTORY: pain s p trauma 3 view right shoulder Comparison: None provided Findings: Bones intact. No dislocations. Shoh-lr-mprlwgmo degenerative change of the glenohumeral joint. No erosions. No radiopaque foreign body. IMPRESSION: 1. No acute findings 2. Jscl-ng-zicvxjyz degenerative change of the glenohumeral joint. This document has been electronically signed by: Ankit Morrow MD on 04/30/2025 10:19:18 Dictated By: Ankit Morrow MD Signed By: <Electronically signed by Ankit Morrow MD in OV> 04/30/25 1020 DD/ 1019 TD/TT: 04/30/25 1019 Drug Safety Scientist: Procedure Note Michael, Image - 04/30/2025 [facility] [address] [place] [address] XRay Report Signed Patient: Gerber Madodx EMR#: [id number] 2 : 1990Acct:[id number] Age/Sex: 34 / MADM Date: 04/30/25 Loc: HO.ED Attending Dr: Ordering Physician: Arpit Granado MD Date of Service: 04/30/25 Procedure(s): XR shoulder RT min 2V Accession Number(s): [id number] cc: Arpit Granado MD; [facility] CLINICAL HISTORY: pain s p trauma 3 view right shoulder Comparison: None provided Findings: Bones intact. No dislocations. Boyb-nb-oucumdfd degenerative change of the glenohumeral joint. No erosions. No radiopaque foreign body. IMPRESSION: 1. No acute findings 2. Lkrr-wo-fvrauyuc degenerative change of the glenohumeral joint. This document has been electronically signed by: Ankit Morrow MD on 04/30/2025 10:19:18 Dictated By: Ankit Morrow MD Signed By: <Electronically signed by Ankit Morrow MD in OV> 04/30/25 1020 DD/ 1019 TD/TT: 04/30/25 1019 Drug Safety Scientist: [facility] External Provider IMG XR PROCEDURES Edited Result - Final * XR Thoracic Spine 2 Views (04/20/2025 1:20 PM EDT) Anatomical Region Laterality Modality Spine, T-spine Radiographic Zandra ging 04/20/2025 1:20 PM EDT Narrative 04/20/2025 3:26 PM EDT [facility] [address] [place] [address] XRay Report Signed Patient: Gerber Maddox MR#: [id number] 2 : 1990 Acct:[id number] Age/Sex: 34 / M ADM Date: 04/20/25 Loc: HO.HHCX Attending Dr: Blanka Dewitt DO Ordering Physician: Blanka Dewitt DO Date of Service: 04/20/25 Procedure(s): XR thoracic spine 2V Accession Number(s): [id number] cc: Blanka Dewitt DO EXAMINATION: XR THORACIC [...] 04/20/25 1523 DD/ 1320 TD/TT: 04/20/25 1400 Drug Safety Scientist: Procedure Note Donotuseinterpreter, Image - 04/20/[address] [address] XRay Report Signed Patient: Gerber Maddox EMR#: [id number] 2 : 1990Acct:[id number] Age/Sex: 34 / MADM Date: 04/20/25 [facility]: Blanka Dewitt DO Ordering Physician: Blanka Dewitt DO Date of Service: 04/20/25 Procedure(s): XR thoracic spine 2V Accession Number(s): [id number] cc: Blanka Dewitt DO EXAMINATION: XR THORACIC [...] 04/20/25 1523 DD/ 1320 TD/TT: 04/20/25 1400 Drug Safety Scientist: us Blanka Dewitt DO IMG XR PROCEDURES Final Resu lt * XR Hip 2 or 3 Views Left (04/20/2025 1:17 PM EDT) Anatomical Region Laterality Modality Lower Extremities, Hip Left Radiograp hic Imaging 04/20/2025 1:17 PM EDT Narrative 04/20/2025 3:24 PM EDT [address] [address] XRay Report Signed Patient: Gerber Maddox MR#: [id number] 2 : 1990 Acct:[id number] Age/Sex: 34 / M ADM Date: 04/20/25 Loc: HO.HHCX Attending Dr: Blanka Dewitt DO Ordering Physician: Blanka Dewitt DO Date of Service: 04/20/25 Procedure(s): XR hip LT min 2V Accession Number(s): [id number] cc: Blanka Dewitt DO EXAMINATION: XR HIP, [...] 04/20/25 1521 DD/ 1317 TD/TT: 04/20/25 1400 Drug Safety Scientist: Procedure Note Donotuseinterpreter, Image - 04/20/[address] [address] XRay Report Signed Patient: Gerber Maddox EMR#: [id number] 2 : 1990Acct:[id number] Age/Sex: 34 / MADM Date: 04/20/25 Loc: HO.HHCX Attending Dr: Blanka Dewitt DO Ordering Physician: Blanka Dewitt DO Date of Service: 04/20/25 Procedure(s): XR hip LT min 2V Accession Number(s): [id number] cc: Blanka Dewitt DO EXAMINATION: XR HIP, [...] 04/20/25 1521 DD/ 1317 TD/TT: 04/20/25 1400 Drug Safety Scientist: Blanka Dewitt DO IMG XR PROCEDURES Final Resu lt * XR Lumbar Spine 2-3 Views (04/20/2025 1:16 PM EDT) Anatomical Region Laterality Modality Spine, L-spine Radiographic Azndra ging 04/20/2025 1:16 PM EDT Narrative 04/20/2025 3:28 PM EDT [address] [address] XRay Report Signed Patient: Gerber Maddox MR#: [id number] 2 : 1990 Acct:[id number] Age/Sex: 34 / M ADM Date: 04/20/25 Loc: OLLIE Attending Dr: Blanka Dewitt DO Ordering Physician: Blanka Dewitt DO Date of Service: 04/20/25 Procedure(s): XR lumbar spine 2-3V Accession Number(s): [id number] cc: Blanka Dewitt DO EXAMINATION: XR LUMBOSACRAL [...] 04/20/25 1525 DD/ 1316 TD/TT: 04/20/25 1400 Drug Safety Scientist: Procedure Note Donotuseinterpreter, Image - 04/20/[address] [address] XRay Report Signed Patient: Gerber Maddox EMR#: [id number] 2 : 1990Acct:[id number] Age/Sex: 34 / MADM Date: 04/20/25 Loc: OLLIE Attending Dr: Blanka Dewitt DO Ordering Physician: Blanka Dewitt DO Date of Service: 04/20/25 Procedure(s): XR lumbar spine 2-3V Accession Number(s): [id number] cc: Blanka Dewitt DO EXAMINATION: XR LUMBOSACRAL [...] Juanito Rincon MD 04/20/2025 03:25 PM EDT RP Dictated By: Juanito Rincon MD Signed By: <Electronically signed by Juanito Rincon MD in OV> 04/20/25 1525 DD/ 1316 TD/TT: 04/20/25 1400 Drug Safety Scientist: Blanka Dewitt DO IMG XR PROCEDURES Final Resu lt * (ABNORMAL) Lipid Panel, Standard (11/27/2022 8:51 AM EST) Cholesterol, Total 193 <200 mg/dL [facility] HDL Cholesterol 45 > OR = 40 mg/dL [facility] Triglycerides 202(H) <150 mg/dL [facility] Comment: If a non-fasting specimen was collected, consider repeat triglyceride testing on a fasting specimen if clinically indicated. Brandi et al. J. of Clin. Lipidol. 2015;9:129-169. LDL Cholesterol 116(H) mg/dL (calc) [facility] Comment: Reference range: <100 Desirable range <100 mg/dL for primary prevention; <70 mg/dL for patients with CHD or diabetic patients with > or = 2 CHD risk factors. LDL-C is now calculated using the Anderson-Milian calculation, which is a validated novel method providing better accuracy than the Friedewald equation in the estimation of LDL-C. Anderson SS et al. EMMETT. 2013;310(19): 3654-8476 (http://education.Biomatrica/faq/SHU933) Chol/HDLC Ratio 4.3 <5.0 (calc) [facility] Non-HDL Cholesterol 148(H) <130 mg/dL (calc) [facility] Comment: For patients with diabetes plus 1 major ASCVD risk factor, treating to a non-HDL-C goal of <100 mg/dL (LDL-C of <70 mg/dL) is considered a therapeutic option. Blood Venous blood specimen / Unknown 11/27/2022 8:51 AM EST 11/27/2022 8:51 AM EST Narrative [facility] - 11/27/2022 10:00 PM EST FASTING:NO FASTING: NO [facility] LAB BLOOD ORDERABLES Final Re sult [facility] [address] [place] [address] [facility] [address] [facility], ([address]) [place] [address] from Last 3 Months or Most Recently Relevant to Health Maintenance Insurance [facility] C3 Care Teams Taxicab Driver Relationship Specialty Start Date End Date Jennifer Osman FNP [address] [place] [id number] PCP - General Family Medicine 05/16/22 Lela Wilson [employer] 01/05/24
--- OUTSIDE RECORDS SUMMARY | 2025-06-22 15:39 | XMS_ITS | Encounter Summary ---
Author Organization [facility] Address [address] [place] [address] Phone Care Team Providers Care Wall Covering Installer Name Role Phone Unavailable Primary Care Provider Unavailabl e Encounter Details Date Type Department Care Team (Late st Contact Info) Description 07/10/2011 Documentation [facility] [place] [address] [place] [address] Family Medicine, Physician [facility] [place] [address] Social History Tobacco Use Types [...]
--- OUTSIDE RECORDS SUMMARY | 2025-06-22 15:39 | XMS_ITS | Encounter Summary ---
Author Organization [facility] Address [address] [place] [address] Phone Care Team Providers Care Residential Real Estate Appraiser Name Role Phone Pcp, Unknown Primary Care Provider Unavailabl e Encounter Details Date Type Department Care Team (Late st Contact Info) Description 05/25/2025 Procedure Pass [facility], Ct Scan - [facility] [address] [place], [place] [id number] Social History Tobacco Use Types Packs/Day Years [...] on filedocumented in this encounter Care Teams Residential Real Estate Appraiser Relationship Specialty Start Date End Date Pcp, Unknown PCP - General 05/25/25 documented as of this encounter Additional Source Comments The information contained in this document represents components of the legal health record. It is not the complete legal health record.[facility]
--- OUTSIDE RECORDS SUMMARY | 2025-06-22 15:39 | XMS_ITS | Clinical Summary ---
Author Organization [facility] Address [address] [facility] [place] [phone] Phone Care Team Providers Care Concreter Name Role Phone Pcp, Unknown Primary Care Provider Unavailabl e Allergies No known active allergies Medications No known medications Encounters Date Type Department Care Team Description 05/26/2025 Ancillary Procedure [address] [address] Kiko Thomas MD, DPHIL 05/25/2025 11:39 PM EDT - 05/26/2025 1:51 AM EDT Emergency [facility] [address] [place] [id number] Kiko Thomas MD, DPHIL Discharge Disposition: Short Term Hospital 05/25/2025 Procedure Pass [address] [address] 05/25/[address] [address] 05/25/[address] [address] 05/25/[address] [address] from Last 3 Months Social History Tobacco Use Types Packs/Day Years [...] have you moved in the past 12 mon ths? Unable to assess 05/26/2025 Paying for [...] Orientation Straight 05/26/2025 12 :47 AM EDT Last Filed Vital Signs Vital Sign Reading Time Taken Comments Blood Pressure 130/77 05/26/2025 1:20 AM EDT Pulse 90 05/26/2025 1:35 AM EDT Temperature 36 C (96.8 F) 05/26/2025 1:35 AM EDT Respiratory Rate 26 05/26/2025 1:20 AM EDT Oxygen Saturation 100% 05/26/2025 1:20 AM EDT Inhaled Oxygen Concentration 40% 05/26/2025 1 2:12 AM EDT Weight 80 kg (176 lb 5.9 oz) 05/26/2025 12:00 AM EDT Height 182.9 cm (6') 05/26/2025 12:00 AM EDT Body Mass Index 23.92 05/26/2025 12:00 AM EDT Plan of Treatment Health Maintenance Due Date Last Done Comments DEPRESSION SCREENING 2002 SMOKING Hx and SMOKELESS TOBACCO SCREENING 2003 HEPATITIS C SCREENING 2008 HIV ONE-TIME SCREENING (18-6 5 YEARS) 2008 INFLUENZA VACCINE (#1) 2025 COVID-19 VACCINE (2023-2 5 season) 2025 LIPID PANEL 11/28/2027 11/27/2022 Adult Td,Tdap Booster 01/19/2031 01/19/2021 , 07/06/2007 HEPATITIS A VACCINES Aged Out No long er eligible based on patient's age to complete this topic HIB VACCINES Aged Out No longer eligi ble based on patient's age to complete this topic MENINGOCOCCAL VACCINES (ACWY) Aged Out No longer eligible based on patient's age to complete this topic MENINGOCOCCAL VACCINES (B) Aged Out N o longer eligible based on patient's age to complete this topic PNEUMOCOCCAL VACCINES (0-49 years) Aged Out No longer eligible b ased on patient's age to complete this topic Medical Devices Not on file Procedures Procedure Name Priority Date/Time Associated Diagnosis Comments CT ED TRAUMA ABDOMEN/PELVIS WITH L-SPINE REFORMATS WITH CONTRAST Routine 05/26/2025 1:[address] ED TRAUMA ANGIO CHEST/ABDOMEN WITH T-SPINE REFORMATS WITH CONTRAST Routine 05/26/2025 1:[address] CERVICAL SPINE WITHOUT CONTRAST Routine 05/26/2025 1:[address] HEAD WITHOUT CONTRAST Routine 05/26/2025 1:17 AM EDT INTUBATION Routine 05/26/2025 1:10 AM EDT XR CHEST PORTABLE Timed 05/26/2025 12: 53 AM EDT TOXICOLOGY SCREEN, URINE STAT 05/26/2025 12:36 AM EDT URINALYSIS W/REFLEX URINE CULTURE STAT 05/26/2025 12:36 AM EDT XR CHEST PORTABLE STAT 05/26/2025 12: 09 AM EDT MAGNESIUM STAT 05/26/2025 12:09 AM EDT ETHANOL, BLOOD STAT 05/26/2025 12:09 AM EDT LIPASE STAT 05/26/2025 12:09 AM EDT LFTS (HEPATIC PANEL) STAT 05/26/2025 12:09 AM EDT CBC AND DIFFERENTIAL STAT 05/26/2025 12:09 AM EDT BASIC METABOLIC PANEL STAT 05/26/2025 12:09 AM EDT ECG 12-LEAD STAT 05/26/2025 12:06 AM EDT POCT GLUCOSE Routine 05/26/2025 12:06 AM EDT US BEDSIDE Routine 05/25/2025 11:50 PM EDT from Last 3 Months Results * CT ED TRAUMA ABDOMEN/PELVIS WITH L-SPINE REFORMATS WITH CONTRAST (05/26/2025 1:20 AM EDT) Anatomical Region Laterality Modality Abdomen, Pelvis Computed Tomogra phy 05/26/2025 1:51 AM EDT Impressions 05/26/2025 2:04 AM EDT 1. No acute intracranial findings. 2. No acute fracture or traumatic malalignment of the cervical spine. 3. No acute traumatic injury to the chest, abdomen, or pelvis. 4. No acute fracture or traumatic malalignment of the thoracic or lumbar spine. 5. Bilateral lower lobe dependent consolidative opacities, likely a combination of aspiration and atelectasis. 6. Orogastric tube appears coiled backwards in the gastric body with the tip terminating in the lower esophagus. Recommend repositioning. Narrative 05/26/2025 2:[address] ED TRAUMA ANGIO CHEST/ABDOMEN WITH T-SPINE REFORMATS WITH CONTRAST, CT ED TRAUMA ABDOMEN/PELVIS WITH L-SPINE REFORMATS WITH CONTRAST, CT CERVICAL SPINE WITHOUT CONTRAST, CT HEAD WITHOUT CONTRAST Referring clinician's provided indication for this examination in Epic: * Chest trauma, mod-severe TECHNIQUE: CT scans of: 1. Head was performed without intravenous contrast using tailored dose modulation techniques. Images were reconstructed in the axial, coronal, and sagittal planes. 2. Cervical spine were performed without intravenous contrast using tailored dose modulation techniques. Images were reconstructed in the axial, coronal, and sagittal planes. 3. Chest and abdomen angiogram with intravenous contrast, to assess for vascular injury to the aorta, spleen, or liver in the setting of trauma. Multiplanar reformations were created. 3-D angiographic postprocessing was performed in the form of MIP images to further characterize the vasculature. 4. Abdomen and pelvis, with intravenous contrast in the portal venous phase. Multiplanar reformations were created. 5. Thoracic spine with intravenous contrast, reconstructed from the chest source data. Multiplanar reformations were created. 6. Lumbar spine with intravenous contrast, reconstructed from the abdomen and pelvis source data. Multiplanar reformations were created. COMPARISON: None FINDINGS: HEAD: Brain Parenchyma: No midline shift, mass effect, parenchymal hemorrhage, or evidence of acute territorial infarct. Ventricular System and Extra-Axial Spaces: No extra-axial fluid collections. Basal cisterns are patent. No hydrocephalus. Osseous and Extracranial Structures: No calvarial fracture or significant soft tissue hematoma. No significant paranasal sinus disease. No orbital abnormality. CERVICAL SPINE: Alignment and Vertebrae: Alignment is normal. Vertebral bodies and posterior elements are intact. Discs and Endplates: Multilevel minimal degenerative changes. Other Findings: No prevertebral soft tissue swelling. CHEST AND ABDOMEN VASCULAR: Aorta: There is no aortic injury, aneurysm, or occlusion. Contrast Extravasation: None. Pulmonary Arteries: Well opacified without pulmonary embolus. Branch Arteries: No stenosis, occlusion, or dissection involving the arch vessel origins. The celiac axis, SMA and LUIS ALBERTO are patent. Renal arteries are patent bilaterally. CHEST: Ports and Devices: Endotracheal tube terminates in the mid trachea. Lungs: No pulmonary contusion or laceration. Dependent consolidative opacities in the bilateral lower lobes, likely a combination of aspiration and atelectasis. Debris in the trachea and left lower lobe bronchus. Pleura: No pleural effusion. No pneumothorax or hemothorax. Lymph Nodes: No enlarged supraclavicular, axillary, mediastinal or hilar lymph nodes. Mediastinum: Heart size is normal. No pericardial effusion. No mediastinal hematoma. No thyroid nodules. Musculoskeletal: No acute rib or sternal fracture. ABDOMEN / PELVIS: Liver: No focal lesion. No laceration or subcapsular hematoma. Biliary: Noninflamed gallbladder without radiopaque stones. No biliary ductal dilatation. Pancreas: Not inflamed. No laceration or ductal dilatation. Spleen: Not enlarged. No focal lesion. No laceration, subcapsular hematoma, or vascular injury. Adrenal Glands: Normal. Kidneys: No contusion, laceration, or subcapsular hematoma. No injury to the vascular structures or collecting systems. No hydronephrosis. Bowel: Orogastric tube appears coiled backwards in the gastric body with the tip terminating in the lower esophagus. Normal appendix. No bowel obstruction or wall thickening. Mesentery, Omentum, and Peritoneum: No ascites. No pneumoperitoneum, hemoperitoneum, or mesenteric hematoma. Pelvic Organs: No pelvic mass. Kerns catheter in place. Lymph Nodes: No lymphadenopathy. Musculoskeletal: No acute pelvic fracture. No significant soft tissue hematoma. THORACIC AND LUMBAR SPINE: Alignment and Curvature: Normal. No traumatic malalignment. Vertebrae: No acute fracture. Disc Spaces: Multilevel mild degenerative changes. Soft Tissues: No paravertebral hematoma. Procedure Note Kiya Brown MD - 05/26/2025 CT ED TRAUMA ANGIO CHEST/ABDOMEN WITH T-SPINE REFORMATS WITH CONTRAST, CTED TRAUMA ABDOMEN/PELVIS WITH L-SPINE REFORMATS WITH CONTRAST, CT CERVICALSPINE WITHOUT CONTRAST, CT HEAD WITHOUT CONTRAST Referring clinician's provided indication for this examination in Epic: *Chest trauma, mod-severe TECHNIQUE: CT scans of: 1. Head was performed without intravenous contrast using tailored dosemodulation techniques. Images were reconstructed in the axial, coronal,and sagittal planes. 2. Cervical spine were performed without intravenous contrast usingtailored dose modulation techniques. Images were reconstructed in theaxial, coronal, and sagittal planes. 3. Chest and abdomen angiogram with intravenous contrast, to assess forvascular injury to the aorta, spleen, or liver in the setting of trauma.Multiplanar reformations were created. 3-D angiographic postprocessing wasperformed in the form of MIP images to further characterize thevasculature. 4. Abdomen and pelvis, with intravenous contrast in the portal venousphase. Multiplanar reformations were created. 5. Thoracic spine with intravenous contrast, reconstructed from the chestsource data. Multiplanar reformations were created. 6. Lumbar spine with intravenous contrast, reconstructed from the abdomenand pelvis source data. Multiplanar reformations were created. COMPARISON: None FINDINGS: HEAD: Brain Parenchyma: No midline shift, mass effect, parenchymal hemorrhage,or evidence of acute territorial infarct. Ventricular System and Extra-Axial Spaces: No extra-axial fluidcollections. Basal cisterns are patent. No hydrocephalus. Osseous and Extracranial Structures: No calvarial fracture or significantsoft tissue hematoma. No significant paranasal sinus disease. No orbitalabnormality. CERVICAL SPINE: Alignment and Vertebrae: Alignment is normal. Vertebral bodies andposterior elements are intact. Discs and Endplates: Multilevel minimal degenerative changes. Other Findings: No prevertebral soft tissue swelling. CHEST AND ABDOMEN VASCULAR: Aorta: There is no aortic injury, aneurysm, or occlusion. Contrast Extravasation: None. Pulmonary Arteries: Well opacified without pulmonary embolus. Branch Arteries: No stenosis, occlusion, or dissection involving the archvessel origins. The celiac axis, SMA and LUIS ALBERTO are patent. Renal arteriesare patent bilaterally. CHEST: Ports and Devices: Endotracheal tube terminates in the mid trachea. Lungs: No pulmonary contusion or laceration. Dependent consolidativeopacities in the bilateral lower lobes, likely a combination of aspirationand atelectasis. Debris in the trachea and left lower lobe bronchus. Pleura: No pleural effusion. No pneumothorax or hemothorax. Lymph Nodes: No enlarged supraclavicular, axillary, mediastinal or hilarlymph nodes. Mediastinum: Heart size is normal. No pericardial effusion. No mediastinalhematoma. No thyroid nodules. Musculoskeletal: No acute rib or sternal fracture. ABDOMEN / PELVIS: Liver: No focal lesion. No laceration or subcapsular hematoma. Biliary: Noninflamed gallbladder without radiopaque stones. No biliaryductal dilatation. Pancreas: Not inflamed. No laceration or ductal dilatation. Spleen: Not enlarged. No focal lesion. No laceration, subcapsularhematoma, or vascular injury. Adrenal Glands: Normal. Kidneys: No contusion, laceration, or subcapsular hematoma. No injury tothe vascular structures or collecting systems. No hydronephrosis. Bowel: Orogastric tube appears coiled backwards in the gastric body withthe tip terminating in the lower esophagus. Normal appendix. No bowelobstruction or wall thickening. Mesentery, Omentum, and Peritoneum: No ascites. No pneumoperitoneum,hemoperitoneum, or mesenteric hematoma. Pelvic Organs: No pelvic mass. Kerns catheter in place. Lymph Nodes: No lymphadenopathy. Musculoskeletal: No acute pelvic fracture. No significant soft tissuehematoma. THORACIC AND LUMBAR SPINE: Alignment and Curvature: Normal. No traumatic malalignment. Vertebrae: No acute fracture. Disc Spaces: Multilevel mild degenerative changes. Soft Tissues: No paravertebral hematoma. IMPRESSION: 1. No acute intracranial findings. 2. No acute fracture or traumatic malalignment of the cervical spine. 3. No acute traumatic injury to the chest, abdomen, or pelvis. 4. No acute fracture or traumatic malalignment of the thoracic or lumbarspine. 5. Bilateral lower lobe dependent consolidative opacities, likely acombination of aspiration and atelectasis. 6. Orogastric tube appears coiled backwards in the gastric body with thetip terminating in the lower esophagus. Recommend repositioning. us Wilver Mendoza PA-C IMG CT ABD/PELVIS Final Resu lt * CT ED TRAUMA ANGIO CHEST/ABDOMEN WITH T-SPINE REFORMATS WITH CONTRAST (05/26/2025 1:20 AM EDT) Anatomical Region Laterality Modality Chest, Thoracic Vasculature Comp uted Tomography 05/26/2025 1:51 AM EDT Impressions 05/26/2025 2:04 AM EDT 1. No acute intracranial findings. 2. No acute fracture or traumatic malalignment of the cervical spine. 3. No acute traumatic injury to the chest, abdomen, or pelvis. 4. No acute fracture or traumatic malalignment of the thoracic or lumbar spine. 5. Bilateral lower lobe dependent consolidative opacities, likely a combination of aspiration and atelectasis. 6. Orogastric tube appears coiled backwards in the gastric body with the tip terminating in the lower esophagus. Recommend repositioning. Narrative 05/26/2025 2:[address] ED TRAUMA ANGIO CHEST/ABDOMEN WITH T-SPINE REFORMATS WITH CONTRAST, CT ED TRAUMA ABDOMEN/PELVIS WITH L-SPINE REFORMATS WITH CONTRAST, CT CERVICAL SPINE WITHOUT CONTRAST, CT HEAD WITHOUT CONTRAST Referring clinician's provided indication for this examination in Epic: * Chest trauma, mod-severe TECHNIQUE: CT scans of: 1. Head was performed without intravenous contrast using tailored dose modulation techniques. Images were reconstructed in the axial, coronal, and sagittal planes. 2. Cervical spine were performed without intravenous contrast using tailored dose modulation techniques. Images were reconstructed in the axial, coronal, and sagittal planes. 3. Chest and abdomen angiogram with intravenous contrast, to assess for vascular injury to the aorta, spleen, or liver in the setting of trauma. Multiplanar reformations were created. 3-D angiographic postprocessing was performed in the form of MIP images to further characterize the vasculature. 4. Abdomen and pelvis, with intravenous contrast in the portal venous phase. Multiplanar reformations were created. 5. Thoracic spine with intravenous contrast, reconstructed from the chest source data. Multiplanar reformations were created. 6. Lumbar spine with intravenous contrast, reconstructed from the abdomen and pelvis source data. Multiplanar reformations were created. COMPARISON: None FINDINGS: HEAD: Brain Parenchyma: No midline shift, mass effect, parenchymal hemorrhage, or evidence of acute territorial infarct. Ventricular System and Extra-Axial Spaces: No extra-axial fluid collections. Basal cisterns are patent. No hydrocephalus. Osseous and Extracranial Structures: No calvarial fracture or significant soft tissue hematoma. No significant paranasal sinus disease. No orbital abnormality. CERVICAL SPINE: Alignment and Vertebrae: Alignment is normal. Vertebral bodies and posterior elements are intact. Discs and Endplates: Multilevel minimal degenerative changes. Other Findings: No prevertebral soft tissue swelling. CHEST AND ABDOMEN VASCULAR: Aorta: There is no aortic injury, aneurysm, or occlusion. Contrast Extravasation: None. Pulmonary Arteries: Well opacified without pulmonary embolus. Branch Arteries: No stenosis, occlusion, or dissection involving the arch vessel origins. The celiac axis, SMA and LUIS ALBERTO are patent. Renal arteries are patent bilaterally. CHEST: Ports and Devices: Endotracheal tube terminates in the mid trachea. Lungs: No pulmonary contusion or laceration. Dependent consolidative opacities in the bilateral lower lobes, likely a combination of aspiration and atelectasis. Debris in the trachea and left lower lobe bronchus. Pleura: No pleural effusion. No pneumothorax or hemothorax. Lymph Nodes: No enlarged supraclavicular, axillary, mediastinal or hilar lymph nodes. Mediastinum: Heart size is normal. No pericardial effusion. No mediastinal hematoma. No thyroid nodules. Musculoskeletal: No acute rib or sternal fracture. ABDOMEN / PELVIS: Liver: No focal lesion. No laceration or subcapsular hematoma. Biliary: Noninflamed gallbladder without radiopaque stones. No biliary ductal dilatation. Pancreas: Not inflamed. No laceration or ductal dilatation. Spleen: Not enlarged. No focal lesion. No laceration, subcapsular hematoma, or vascular injury. Adrenal Glands: Normal. Kidneys: No contusion, laceration, or subcapsular hematoma. No injury to the vascular structures or collecting systems. No hydronephrosis. Bowel: Orogastric tube appears coiled backwards in the gastric body with the tip terminating in the lower esophagus. Normal appendix. No bowel obstruction or wall thickening. Mesentery, Omentum, and Peritoneum: No ascites. No pneumoperitoneum, hemoperitoneum, or mesenteric hematoma. Pelvic Organs: No pelvic mass. Kerns catheter in place. Lymph Nodes: No lymphadenopathy. Musculoskeletal: No acute pelvic fracture. No significant soft tissue hematoma. THORACIC AND LUMBAR SPINE: Alignment and Curvature: Normal. No traumatic malalignment. Vertebrae: No acute fracture. Disc Spaces: Multilevel mild degenerative changes. Soft Tissues: No paravertebral hematoma. Procedure Note Kiya Brown MD - 05/26/2025 CT ED TRAUMA ANGIO CHEST/ABDOMEN WITH T-SPINE REFORMATS WITH CONTRAST, CTED TRAUMA ABDOMEN/PELVIS WITH L-SPINE REFORMATS WITH CONTRAST, CT CERVICALSPINE WITHOUT CONTRAST, CT HEAD WITHOUT CONTRAST Referring clinician's provided indication for this examination in Epic: *Chest trauma, mod-severe TECHNIQUE: CT scans of: 1. Head was performed without intravenous contrast using tailored dosemodulation techniques. Images were reconstructed in the axial, coronal,and sagittal planes. 2. Cervical spine were performed without intravenous contrast usingtailored dose modulation techniques. Images were reconstructed in theaxial, coronal, and sagittal planes. 3. Chest and abdomen angiogram with intravenous contrast, to assess forvascular injury to the aorta, spleen, or liver in the setting of trauma.Multiplanar reformations were created. 3-D angiographic postprocessing wasperformed in the form of MIP images to further characterize thevasculature. 4. Abdomen and pelvis, with intravenous contrast in the portal venousphase. Multiplanar reformations were created. 5. Thoracic spine with intravenous contrast, reconstructed from the chestsource data. Multiplanar reformations were created. 6. Lumbar spine with intravenous contrast, reconstructed from the abdomenand pelvis source data. Multiplanar reformations were created. COMPARISON: None FINDINGS: HEAD: Brain Parenchyma: No midline shift, mass effect, parenchymal hemorrhage,or evidence of acute territorial infarct. Ventricular System and Extra-Axial Spaces: No extra-axial fluidcollections. Basal cisterns are patent. No hydrocephalus. Osseous and Extracranial Structures: No calvarial fracture or significantsoft tissue hematoma. No significant paranasal sinus disease. No orbitalabnormality. CERVICAL SPINE: Alignment and Vertebrae: Alignment is normal. Vertebral bodies andposterior elements are intact. Discs and Endplates: Multilevel minimal degenerative changes. Other Findings: No prevertebral soft tissue swelling. CHEST AND ABDOMEN VASCULAR: Aorta: There is no aortic injury, aneurysm, or occlusion. Contrast Extravasation: None. Pulmonary Arteries: Well opacified without pulmonary embolus. Branch Arteries: No stenosis, occlusion, or dissection involving the archvessel origins. The celiac axis, SMA and LUIS ALBERTO are patent. Renal arteriesare patent bilaterally. CHEST: Ports and Devices: Endotracheal tube terminates in the mid trachea. Lungs: No pulmonary contusion or laceration. Dependent consolidativeopacities in the bilateral lower lobes, likely a combination of aspirationand atelectasis. Debris in the trachea and left lower lobe bronchus. Pleura: No pleural effusion. No pneumothorax or hemothorax. Lymph Nodes: No enlarged supraclavicular, axillary, mediastinal or hilarlymph nodes. Mediastinum: Heart size is normal. No pericardial effusion. No mediastinalhematoma. No thyroid nodules. Musculoskeletal: No acute rib or sternal fracture. ABDOMEN / PELVIS: Liver: No focal lesion. No laceration or subcapsular hematoma. Biliary: Noninflamed gallbladder without radiopaque stones. No biliaryductal dilatation. Pancreas: Not inflamed. No laceration or ductal dilatation. Spleen: Not enlarged. No focal lesion. No laceration, subcapsularhematoma, or vascular injury. Adrenal Glands: Normal. Kidneys: No contusion, laceration, or subcapsular hematoma. No injury tothe vascular structures or collecting systems. No hydronephrosis. Bowel: Orogastric tube appears coiled backwards in the gastric body withthe tip terminating in the lower esophagus. Normal appendix. No bowelobstruction or wall thickening. Mesentery, Omentum, and Peritoneum: No ascites. No pneumoperitoneum,hemoperitoneum, or mesenteric hematoma. Pelvic Organs: No pelvic mass. Kerns catheter in place. Lymph Nodes: No lymphadenopathy. Musculoskeletal: No acute pelvic fracture. No significant soft tissuehematoma. THORACIC AND LUMBAR SPINE: Alignment and Curvature: Normal. No traumatic malalignment. Vertebrae: No acute fracture. Disc Spaces: Multilevel mild degenerative changes. Soft Tissues: No paravertebral hematoma. IMPRESSION: 1. No acute intracranial findings. 2. No acute fracture or traumatic malalignment of the cervical spine. 3. No acute traumatic injury to the chest, abdomen, or pelvis. 4. No acute fracture or traumatic malalignment of the thoracic or lumbarspine. 5. Bilateral lower lobe dependent consolidative opacities, likely acombination of aspiration and atelectasis. 6. Orogastric tube appears coiled backwards in the gastric body with thetip terminating in the lower esophagus. Recommend repositioning. Wilver Mendoza PA-C IMG CT CHEST Final Result * CT CERVICAL SPINE WITHOUT CONTRAST (05/26/2025 1:17 AM EDT) Anatomical Region Laterality Modality C-spine Computed Tomogra phy 05/26/2025 1:51 AM EDT Impressions 05/26/2025 2:04 AM EDT 1. No acute intracranial findings. 2. No acute fracture or traumatic malalignment of the cervical spine. 3. No acute traumatic injury to the chest, abdomen, or pelvis. 4. No acute fracture or traumatic malalignment of the thoracic or lumbar spine. 5. Bilateral lower lobe dependent consolidative opacities, likely a combination of aspiration and atelectasis. 6. Orogastric tube appears coiled backwards in the gastric body with the tip terminating in the lower esophagus. Recommend repositioning. Narrative 05/26/2025 2:[address] ED TRAUMA ANGIO CHEST/ABDOMEN WITH T-SPINE REFORMATS WITH CONTRAST, CT ED TRAUMA ABDOMEN/PELVIS WITH L-SPINE REFORMATS WITH CONTRAST, CT CERVICAL SPINE WITHOUT CONTRAST, CT HEAD WITHOUT CONTRAST Referring clinician's provided indication for this examination in Epic: * Chest trauma, mod-severe TECHNIQUE: CT scans of: 1. Head was performed without intravenous contrast using tailored dose modulation techniques. Images were reconstructed in the axial, coronal, and sagittal planes. 2. Cervical spine were performed without intravenous contrast using tailored dose modulation techniques. Images were reconstructed in the axial, coronal, and sagittal planes. 3. Chest and abdomen angiogram with intravenous contrast, to assess for vascular injury to the aorta, spleen, or liver in the setting of trauma. Multiplanar reformations were created. 3-D angiographic postprocessing was performed in the form of MIP images to further characterize the vasculature. 4. Abdomen and pelvis, with intravenous contrast in the portal venous phase. Multiplanar reformations were created. 5. Thoracic spine with intravenous contrast, reconstructed from the chest source data. Multiplanar reformations were created. 6. Lumbar spine with intravenous contrast, reconstructed from the abdomen and pelvis source data. Multiplanar reformations were created. COMPARISON: None FINDINGS: HEAD: Brain Parenchyma: No midline shift, mass effect, parenchymal hemorrhage, or evidence of acute territorial infarct. Ventricular System and Extra-Axial Spaces: No extra-axial fluid collections. Basal cisterns are patent. No hydrocephalus. Osseous and Extracranial Structures: No calvarial fracture or significant soft tissue hematoma. No significant paranasal sinus disease. No orbital abnormality. CERVICAL SPINE: Alignment and Vertebrae: Alignment is normal. Vertebral bodies and posterior elements are intact. Discs and Endplates: Multilevel minimal degenerative changes. Other Findings: No prevertebral soft tissue swelling. CHEST AND ABDOMEN VASCULAR: Aorta: There is no aortic injury, aneurysm, or occlusion. Contrast Extravasation: None. Pulmonary Arteries: Well opacified without pulmonary embolus. Branch Arteries: No stenosis, occlusion, or dissection involving the arch vessel origins. The celiac axis, SMA and LUIS ALBERTO are patent. Renal arteries are patent bilaterally. CHEST: Ports and Devices: Endotracheal tube terminates in the mid trachea. Lungs: No pulmonary contusion or laceration. Dependent consolidative opacities in the bilateral lower lobes, likely a combination of aspiration and atelectasis. Debris in the trachea and left lower lobe bronchus. Pleura: No pleural effusion. No pneumothorax or hemothorax. Lymph Nodes: No enlarged supraclavicular, axillary, mediastinal or hilar lymph nodes. Mediastinum: Heart size is normal. No pericardial effusion. No mediastinal hematoma. No thyroid nodules. Musculoskeletal: No acute rib or sternal fracture. ABDOMEN / PELVIS: Liver: No focal lesion. No laceration or subcapsular hematoma. Biliary: Noninflamed gallbladder without radiopaque stones. No biliary ductal dilatation. Pancreas: Not inflamed. No laceration or ductal dilatation. Spleen: Not enlarged. No focal lesion. No laceration, subcapsular hematoma, or vascular injury. Adrenal Glands: Normal. Kidneys: No contusion, laceration, or subcapsular hematoma. No injury to the vascular structures or collecting systems. No hydronephrosis. Bowel: Orogastric tube appears coiled backwards in the gastric body with the tip terminating in the lower esophagus. Normal appendix. No bowel obstruction or wall thickening. Mesentery, Omentum, and Peritoneum: No ascites. No pneumoperitoneum, hemoperitoneum, or mesenteric hematoma. Pelvic Organs: No pelvic mass. Kerns catheter in place. Lymph Nodes: No lymphadenopathy. Musculoskeletal: No acute pelvic fracture. No significant soft tissue hematoma. THORACIC AND LUMBAR SPINE: Alignment and Curvature: Normal. No traumatic malalignment. Vertebrae: No acute fracture. Disc Spaces: Multilevel mild degenerative changes. Soft Tissues: No paravertebral hematoma. Procedure Note Kiya Brown MD - 05/26/2025 CT ED TRAUMA ANGIO CHEST/ABDOMEN WITH T-SPINE REFORMATS WITH CONTRAST, CTED TRAUMA ABDOMEN/PELVIS WITH L-SPINE REFORMATS WITH CONTRAST, CT CERVICALSPINE WITHOUT CONTRAST, CT HEAD WITHOUT CONTRAST Referring clinician's provided indication for this examination in Epic: *Chest trauma, mod-severe TECHNIQUE: CT scans of: 1. Head was performed without intravenous contrast using tailored dosemodulation techniques. Images were reconstructed in the axial, coronal,and sagittal planes. 2. Cervical spine were performed without intravenous contrast usingtailored dose modulation techniques. Images were reconstructed in theaxial, coronal, and sagittal planes. 3. Chest and abdomen angiogram with intravenous contrast, to assess forvascular injury to the aorta, spleen, or liver in the setting of trauma.Multiplanar reformations were created. 3-D angiographic postprocessing wasperformed in the form of MIP images to further characterize thevasculature. 4. Abdomen and pelvis, with intravenous contrast in the portal venousphase. Multiplanar reformations were created. 5. Thoracic spine with intravenous contrast, reconstructed from the chestsource data. Multiplanar reformations were created. 6. Lumbar spine with intravenous contrast, reconstructed from the abdomenand pelvis source data. Multiplanar reformations were created. COMPARISON: None FINDINGS: HEAD: Brain Parenchyma: No midline shift, mass effect, parenchymal hemorrhage,or evidence of acute territorial infarct. Ventricular System and Extra-Axial Spaces: No extra-axial fluidcollections. Basal cisterns are patent. No hydrocephalus. Osseous and Extracranial Structures: No calvarial fracture or significantsoft tissue hematoma. No significant paranasal sinus disease. No orbitalabnormality. CERVICAL SPINE: Alignment and Vertebrae: Alignment is normal. Vertebral bodies andposterior elements are intact. Discs and Endplates: Multilevel minimal degenerative changes. Other Findings: No prevertebral soft tissue swelling. CHEST AND ABDOMEN VASCULAR: Aorta: There is no aortic injury, aneurysm, or occlusion. Contrast Extravasation: None. Pulmonary Arteries: Well opacified without pulmonary embolus. Branch Arteries: No stenosis, occlusion, or dissection involving the archvessel origins. The celiac axis, SMA and LUIS ALBERTO are patent. Renal arteriesare patent bilaterally. CHEST: Ports and Devices: Endotracheal tube terminates in the mid trachea. Lungs: No pulmonary contusion or laceration. Dependent consolidativeopacities in the bilateral lower lobes, likely a combination of aspirationand atelectasis. Debris in the trachea and left lower lobe bronchus. Pleura: No pleural effusion. No pneumothorax or hemothorax. Lymph Nodes: No enlarged supraclavicular, axillary, mediastinal or hilarlymph nodes. Mediastinum: Heart size is normal. No pericardial effusion. No mediastinalhematoma. No thyroid nodules. Musculoskeletal: No acute rib or sternal fracture. ABDOMEN / PELVIS: Liver: No focal lesion. No laceration or subcapsular hematoma. Biliary: Noninflamed gallbladder without radiopaque stones. No biliaryductal dilatation. Pancreas: Not inflamed. No laceration or ductal dilatation. Spleen: Not enlarged. No focal lesion. No laceration, subcapsularhematoma, or vascular injury. Adrenal Glands: Normal. Kidneys: No contusion, laceration, or subcapsular hematoma. No injury tothe vascular structures or collecting systems. No hydronephrosis. Bowel: Orogastric tube appears coiled backwards in the gastric body withthe tip terminating in the lower esophagus. Normal appendix. No bowelobstruction or wall thickening. Mesentery, Omentum, and Peritoneum: No ascites. No pneumoperitoneum,hemoperitoneum, or mesenteric hematoma. Pelvic Organs: No pelvic mass. Kerns catheter in place. Lymph Nodes: No lymphadenopathy. Musculoskeletal: No acute pelvic fracture. No significant soft tissuehematoma. THORACIC AND LUMBAR SPINE: Alignment and Curvature: Normal. No traumatic malalignment. Vertebrae: No acute fracture. Disc Spaces: Multilevel mild degenerative changes. Soft Tissues: No paravertebral hematoma. IMPRESSION: 1. No acute intracranial findings. 2. No acute fracture or traumatic malalignment of the cervical spine. 3. No acute traumatic injury to the chest, abdomen, or pelvis. 4. No acute fracture or traumatic malalignment of the thoracic or lumbarspine. 5. Bilateral lower lobe dependent consolidative opacities, likely acombination of aspiration and atelectasis. 6. Orogastric tube appears coiled backwards in the gastric body with thetip terminating in the lower esophagus. Recommend repositioning. us Wilver Mendoza PA-C [facility] [place] XSPECIALTY ORDERABLES Final Result * CT HEAD WITHOUT CONTRAST (05/26/2025 1:17 AM EDT) Anatomical Region Laterality Modality Head Computed Tomogra phy 05/26/2025 1:51 AM EDT Impressions 05/26/2025 2:04 AM EDT 1. No acute intracranial findings. 2. No acute fracture or traumatic malalignment of the cervical spine. 3. No acute traumatic injury to the chest, abdomen, or pelvis. 4. No acute fracture or traumatic malalignment of the thoracic or lumbar spine. 5. Bilateral lower lobe dependent consolidative opacities, likely a combination of aspiration and atelectasis. 6. Orogastric tube appears coiled backwards in the gastric body with the tip terminating in the lower esophagus. Recommend repositioning. Narrative 05/26/2025 2:[address] ED TRAUMA ANGIO CHEST/ABDOMEN WITH T-SPINE REFORMATS WITH CONTRAST, CT ED TRAUMA ABDOMEN/PELVIS WITH L-SPINE REFORMATS WITH CONTRAST, CT CERVICAL SPINE WITHOUT CONTRAST, CT HEAD WITHOUT CONTRAST Referring clinician's provided indication for this examination in Epic: * Chest trauma, mod-severe TECHNIQUE: CT scans of: 1. Head was performed without intravenous contrast using tailored dose modulation techniques. Images were reconstructed in the axial, coronal, and sagittal planes. 2. Cervical spine were performed without intravenous contrast using tailored dose modulation techniques. Images were reconstructed in the axial, coronal, and sagittal planes. 3. Chest and abdomen angiogram with intravenous contrast, to assess for vascular injury to the aorta, spleen, or liver in the setting of trauma. Multiplanar reformations were created. 3-D angiographic postprocessing was performed in the form of MIP images to further characterize the vasculature. 4. Abdomen and pelvis, with intravenous contrast in the portal venous phase. Multiplanar reformations were created. 5. Thoracic spine with intravenous contrast, reconstructed from the chest source data. Multiplanar reformations were created. 6. Lumbar spine with intravenous contrast, reconstructed from the abdomen and pelvis source data. Multiplanar reformations were created. COMPARISON: None FINDINGS: HEAD: Brain Parenchyma: No midline shift, mass effect, parenchymal hemorrhage, or evidence of acute territorial infarct. Ventricular System and Extra-Axial Spaces: No extra-axial fluid collections. Basal cisterns are patent. No hydrocephalus. Osseous and Extracranial Structures: No calvarial fracture or significant soft tissue hematoma. No significant paranasal sinus disease. No orbital abnormality. CERVICAL SPINE: Alignment and Vertebrae: Alignment is normal. Vertebral bodies and posterior elements are intact. Discs and Endplates: Multilevel minimal degenerative changes. Other Findings: No prevertebral soft tissue swelling. CHEST AND ABDOMEN VASCULAR: Aorta: There is no aortic injury, aneurysm, or occlusion. Contrast Extravasation: None. Pulmonary Arteries: Well opacified without pulmonary embolus. Branch Arteries: No stenosis, occlusion, or dissection involving the arch vessel origins. The celiac axis, SMA and LUIS ALBERTO are patent. Renal arteries are patent bilaterally. CHEST: Ports and Devices: Endotracheal tube terminates in the mid trachea. Lungs: No pulmonary contusion or laceration. Dependent consolidative opacities in the bilateral lower lobes, likely a combination of aspiration and atelectasis. Debris in the trachea and left lower lobe bronchus. Pleura: No pleural effusion. No pneumothorax or hemothorax. Lymph Nodes: No enlarged supraclavicular, axillary, mediastinal or hilar lymph nodes. Mediastinum: Heart size is normal. No pericardial effusion. No mediastinal hematoma. No thyroid nodules. Musculoskeletal: No acute rib or sternal fracture. ABDOMEN / PELVIS: Liver: No focal lesion. No laceration or subcapsular hematoma. Biliary: Noninflamed gallbladder without radiopaque stones. No biliary ductal dilatation. Pancreas: Not inflamed. No laceration or ductal dilatation. Spleen: Not enlarged. No focal lesion. No laceration, subcapsular hematoma, or vascular injury. Adrenal Glands: Normal. Kidneys: No contusion, laceration, or subcapsular hematoma. No injury to the vascular structures or collecting systems. No hydronephrosis. Bowel: Orogastric tube appears coiled backwards in the gastric body with the tip terminating in the lower esophagus. Normal appendix. No bowel obstruction or wall thickening. Mesentery, Omentum, and Peritoneum: No ascites. No pneumoperitoneum, hemoperitoneum, or mesenteric hematoma. Pelvic Organs: No pelvic mass. Kerns catheter in place. Lymph Nodes: No lymphadenopathy. Musculoskeletal: No acute pelvic fracture. No significant soft tissue hematoma. THORACIC AND LUMBAR SPINE: Alignment and Curvature: Normal. No traumatic malalignment. Vertebrae: No acute fracture. Disc Spaces: Multilevel mild degenerative changes. Soft Tissues: No paravertebral hematoma. Procedure Note Sun, Kiya X, MD - 05/26/2025 CT ED TRAUMA ANGIO CHEST/ABDOMEN WITH T-SPINE REFORMATS WITH CONTRAST, CTED TRAUMA ABDOMEN/PELVIS WITH L-SPINE REFORMATS WITH CONTRAST, CT CERVICALSPINE WITHOUT CONTRAST, CT HEAD WITHOUT CONTRAST Referring clinician's provided indication for this examination in Epic: *Chest trauma, mod-severe TECHNIQUE: CT scans of: 1. Head was performed without intravenous contrast using tailored dosemodulation techniques. Images were reconstructed in the axial, coronal,and sagittal planes. 2. Cervical spine were performed without intravenous contrast usingtailored dose modulation techniques. Images were reconstructed in theaxial, coronal, and sagittal planes. 3. Chest and abdomen angiogram with intravenous contrast, to assess forvascular injury to the aorta, spleen, or liver in the setting of trauma.Multiplanar reformations were created. 3-D angiographic postprocessing wasperformed in the form of MIP images to further characterize thevasculature. 4. Abdomen and pelvis, with intravenous contrast in the portal venousphase. Multiplanar reformations were created. 5. Thoracic spine with intravenous contrast, reconstructed from the chestsource data. Multiplanar reformations were created. 6. Lumbar spine with intravenous contrast, reconstructed from the abdomenand pelvis source data. Multiplanar reformations were created. COMPARISON: None FINDINGS: HEAD: Brain Parenchyma: No midline shift, mass effect, parenchymal hemorrhage,or evidence of acute territorial infarct. Ventricular System and Extra-Axial Spaces: No extra-axial fluidcollections. Basal cisterns are patent. No hydrocephalus. Osseous and Extracranial Structures: No calvarial fracture or significantsoft tissue hematoma. No significant paranasal sinus disease. No orbitalabnormality. CERVICAL SPINE: Alignment and Vertebrae: Alignment is normal. Vertebral bodies andposterior elements are intact. Discs and Endplates: Multilevel minimal degenerative changes. Other Findings: No prevertebral soft tissue swelling. CHEST AND ABDOMEN VASCULAR: Aorta: There is no aortic injury, aneurysm, or occlusion. Contrast Extravasation: None. Pulmonary Arteries: Well opacified without pulmonary embolus. Branch Arteries: No stenosis, occlusion, or dissection involving the archvessel origins. The celiac axis, SMA and LUIS ALBERTO are patent. Renal arteriesare patent bilaterally. CHEST: Ports and Devices: Endotracheal tube terminates in the mid trachea. Lungs: No pulmonary contusion or laceration. Dependent consolidativeopacities in the bilateral lower lobes, likely a combination of aspirationand atelectasis. Debris in the trachea and left lower lobe bronchus. Pleura: No pleural effusion. No pneumothorax or hemothorax. Lymph Nodes: No enlarged supraclavicular, axillary, mediastinal or hilarlymph nodes. Mediastinum: Heart size is normal. No pericardial effusion. No mediastinalhematoma. No thyroid nodules. Musculoskeletal: No acute rib or sternal fracture. ABDOMEN / PELVIS: Liver: No focal lesion. No laceration or subcapsular hematoma. Biliary: Noninflamed gallbladder without radiopaque stones. No biliaryductal dilatation. Pancreas: Not inflamed. No laceration or ductal dilatation. Spleen: Not enlarged. No focal lesion. No laceration, subcapsularhematoma, or vascular injury. Adrenal Glands: Normal. Kidneys: No contusion, laceration, or subcapsular hematoma. No injury tothe vascular structures or collecting systems. No hydronephrosis. Bowel: Orogastric tube appears coiled backwards in the gastric body withthe tip terminating in the lower esophagus. Normal appendix. No bowelobstruction or wall thickening. Mesentery, Omentum, and Peritoneum: No ascites. No pneumoperitoneum,hemoperitoneum, or mesenteric hematoma. Pelvic Organs: No pelvic mass. Kerns catheter in place. Lymph Nodes: No lymphadenopathy. Musculoskeletal: No acute pelvic fracture. No significant soft tissuehematoma. THORACIC AND LUMBAR SPINE: Alignment and Curvature: Normal. No traumatic malalignment. Vertebrae: No acute fracture. Disc Spaces: Multilevel mild degenerative changes. Soft Tissues: No paravertebral hematoma. IMPRESSION: 1. No acute intracranial findings. 2. No acute fracture or traumatic malalignment of the cervical spine. 3. No acute traumatic injury to the chest, abdomen, or pelvis. 4. No acute fracture or traumatic malalignment of the thoracic or lumbarspine. 5. Bilateral lower lobe dependent consolidative opacities, likely acombination of aspiration and atelectasis. 6. Orogastric tube appears coiled backwards in the gastric body with thetip terminating in the lower esophagus. Recommend repositioning. us Wilver P Bartus PA-C IMG CT HEAD/NECK Final Resul t * INTUBATION (05/26/2025 1:10 AM EDT) Narrative Kiko Thomas MD, LISSY - 05/26/2025 1:10 AM EDT Kiko Thomas MD, LISSY 05/26/2025 1:11 AM Intubation Date/Time: 05/26/2025 1:10 AM Performed by: Kiko Thomas MD, LISSY Authorized by: Kiko Thomas MD, LISSY [place] Protocol: Emergent situation Time out: Immediately prior to the procedure a time-out was called A time out verifies correct patient, procedure, equipment and site/side marked as required: Indications: Indications: Airway protection Personal Protective Equipment: Mask: no mask Gloves: gloves Procedure Details: Method: Sedation + paralysis (RSI) Laryngoscope Type: Mac Laryngoscope size: 4 Number of attempts: 1 Tube size (mm): 7.0 Tube type: Cuffed Cormack & Lehane Grade View: 1 ETT Depth at teeth (cm): 26 Placement confirmation: Chest rise, CO2 detector and CXR Breath sounds: Equal Tube secured with: ETT fink Patient tolerance: Patient tolerated the procedure well with no immediate complications Difficult intubation: No Pre-oxygenation Method: BVM Pre-intubation oxygen saturation (%): 94 Kiko Thomas MD, DPUTL PROCEDURE/MINOR S URGICAL ORDERABLES Final Result * XR Chest Portable (05/26/2025 12:53 AM EDT) Anatomical Region Laterality Modality Chest Computed Radiogr aphy 05/26/2025 1:53 AM EDT Impressions 05/26/2025 1:55 AM EDT Interval placement of enteric tube terminating in the expected region of the lower esophagus. Repositioning recommended. Narrative 05/26/2025 1:55 AM EDT XR CHEST PORTABLE Referring clinician's provided indication for this examination in Epic: s/p Feeding Tube/NGT COMPARISON: XR CHEST PORTABLE FINDINGS: Devices/Tubes/Lines: Enteric tube coils within the stomach with tip projecting over the lower esophagus. Endotracheal tube terminates 53 mm above the shahnaz. Lungs: Streaky bilateral opacities likely represent atelectasis. Pleura: No pleural effusion or pneumothorax. Heart/Mediastinum: Normal. Bones/Soft Tissues: Normal. Procedure Note Chad Real MD - 05/26/2025 XR CHEST PORTABLE Referring clinician's provided indication for this examination in Epic:s/p Feeding Tube/NGT COMPARISON: XR CHEST PORTABLE FINDINGS: Devices/Tubes/Lines: Enteric tube coils within the stomach with tipprojecting over the lower esophagus. Endotracheal tube terminates 53 mmabove the shahnaz. Lungs: Streaky bilateral opacities likely represent atelectasis. Pleura: No pleural effusion or pneumothorax. Heart/Mediastinum: Normal. Bones/Soft Tissues: Normal. IMPRESSION: Interval placement of enteric tube terminating in the expected region ofthe lower esophagus. Repositioning recommended. us Kiko Thomas MD, DPHIL IMG XR CHEST F inal Result * (ABNORMAL) Urinalysis w/reflex Urine Culture (05/26/2025 12:36 AM EDT) COLOR Yellow Yellow [facility] CLARITY Clear [facility] GLUCOSE Negative Negative [facility] BILI Negative Negative [facility] KETONES Negative Negative [facility] SPECIFIC GRAVITY 1.010 1.005 - 1.030 [facility] BLOOD Trace(A) Negative [facility] PH 5.5 5.0 - 8.0 [facility] Protein-UA Negative Negative [facility] NITRITE Negative Negative [facility] Leukocyte esterase, ur Negative Negative [facility] Urine (Urine) 05/26/2025 12: 36 AM EDT 05/26/2025 1:02 AM EDT us Wilver Mendoza PA-C URINE ORDERABLES Final Resul t [facility] [address] [place] [address] * (ABNORMAL) Toxicology screen, urine (05/26/2025 12:36 AM EDT) URINE CANNABINOIDS Positive(A) NONE DETECTED [facility] Comment:Cutoff: 50 ng/mL URINE COCAINE METAB NONE DETECTED NONE DETECTED [facility] Comment:Cutoff: 300 ng/mL URINE AMPHETAMINES NONE DETECTED NONE DETECTED [facility] Comment:Cutoff: 1000 ng/mL URINE METHADONE NONE DETECTED NONE DETECTED [facility] Comment:Cutoff: 300 ng/mL URINE OPIATES NONE DETECTED NONE DETECTED [facility] Comment:Cutoff: 300 ng/mL URINE PHENCYCLIDINE NONE DETECTED NONE DETECTED [facility] Comment:Cutoff: 25 ng/mL URINE OXYCODONE NONE DETECTED NONE DETECTED [facility] Comment:Cutoff: 300 ng/mL URINE BARBITURATES NONE DETECTED NONE DETECTED [facility] Comment:Cutoff: 200 ng/mL URINE BENZODIAZEPINE Positive(A) NONE DETECTED [facility] Comment:Cutoff: 200 ng/mL URINE BUPRENORPHINE NONE DETECTED NONE DETECTED [facility] Comment:Cutoff: 5 ng/mL Fentanyl, urine NONE DETECTED NONE DETECTED [facility] Comment: Cutoff: 5 ng/mL INTERPRETATION FOR TOXICOLOGY PANEL: These results are unconfirmed and should be used for Medical Treatment purposes only. Urine (Urine) 05/26/2025 12: 36 AM EDT 05/26/2025 1:02 AM EDT us Wilver Mendoza PA-C URINE ORDERABLES Final Resul t [facility] [address] [place] [address] * XR Chest Portable (05/26/2025 12:09 AM EDT) Anatomical Region Laterality Modality Chest Computed Radiogr aphy 05/26/2025 12:3 7 AM EDT Impressions 05/26/2025 12:56 AM EDT No acute abnormality. ATTESTATION: I, Chad Real as teaching physician, have reviewed the images for this case and if necessary edited the report originally created by Suha Aviles. Narrative 05/26/2025 12:56 AM EDT XR CHEST PORTABLE Referring clinician's provided indication for this examination in [facility]: Dyspnea (Shortness of Breath) COMPARISON: None FINDINGS: Devices/Tubes/Lines: Endotracheal tube tip projects 4 cm above the level of the shahnaz Lungs: Streaky bilateral opacities in the lower lung, likely atelectasis Pleura: No pleural effusion or pneumothorax. Heart/Mediastinum: Normal. Bones/Soft Tissues: Normal. Procedure Note Chad Real MD - 05/26/2025 XR CHEST PORTABLE Referring clinician's provided indication for this examination in Epic:Dyspnea (Shortness of Breath) COMPARISON: None FINDINGS: Devices/Tubes/Lines: Endotracheal tube tip projects 4 cm above the levelof the shahnaz Lungs: Streaky bilateral opacities in the lower lung, likely atelectasis Pleura: No pleural effusion or pneumothorax. Heart/Mediastinum: Normal. Bones/Soft Tissues: Normal. IMPRESSION: No acute abnormality. ATTESTATION: I, Chad Real as teaching physician, have reviewed theimages for this case and if necessary edited the report originally createdby Suha Aviles. us Kiko Thomas MD, DPHIL IMG XR CHEST F inal Result * (ABNORMAL) Ethanol, blood (05/26/2025 12:09 AM EDT) ETHANOL 158(H) <10 mg/dL [facility] Blood 05/26/2025 12:0 9 AM EDT 05/26/2025 12:27 AM EDT us Wilver Mendoza PA-C LAB BLOOD ORDERABLES Final R esult [facility] [address] [place] [address] * LFTs (hepatic panel) (05/26/2025 12:09 AM EDT) ALKALINE PHOSPHATASE 75 39 - 117 U/L [facility] TOTAL BILIRUBIN <0.2 0.0 - 1.2 mg/dL [facility] DIRECT BILIRUBIN <0.1 0.0 - 0.2 mg/dL [facility] Bilirubin (Indirect) NOT CALCULATED 0 - 1.5 mg/dL [facility] AST 23 0 - 37 U/L [facility] ALT 13 0 - 40 U/L [facility] TOTAL PROTEIN 7.2 6.5 - 8.0 g/dL [facility] ALBUMIN 4.1 3.9 - 4.8 g/dL [facility] GLOBULIN 3.1 1 - 4.8 g/dL [facility] A/G Ratio 1.32 1.00 - 4.80 RATIO [facility] Blood 05/26/2025 12:0 9 AM EDT 05/26/2025 12:27 AM EDT us Wilver Mendoza PA-C LAB BLOOD ORDERABLES Final R esult Performing Organization Address City/State/[place] Co de Phone Number [address] [address] * CBC and differential (05/26/2025 12:09 AM EDT) Pathologist [facility] WBC 10.92 4.00 - 11.00 K/uL [facility] RBC 4.89 4.50 - 5.90 M/uL [facility] HGB 14.5 13.5 - 17.5 g/dL [facility] HCT 44.6 41.0 - 53.0 % [facility] PLT 251 150 - 450 K/uL [facility] MCV 91.2 80.0 - 100.0 fL [facility] MCH 29.7 27.0 - 31.0 pg [facility] MCHC 32.5 32.0 - 36.0 g/dL [facility] RDW 13.3 11.5 - 14.5 % [facility] MPV 10.3 8.4 - 12.0 fL [facility] NRBC 0.00 0.00 /100 WBCs [facility] ABSOLUTE NRBC 0.00 0.00 K/uL [facility] DIFF METHOD Auto [facility] NEUTS 55.0 48.0 - 76.0 % [facility] LYMPHS 36.0 18.0 - 41.0 % [facility] MONOS 4.6 4.0 - 11.0 % [facility] EOS 3.3 0.0 - 5.0 % [facility] BASOS 0.6 0.0 - 1.5 % [facility] Granulocytes, immature (%) 0.5 0.0 - 0.9 % [facility] ABSOLUTE NEUTS 6.01 1.92 - 7.60 K/uL [facility] ABSOLUTE LYMPHS 3.93 0.72 - 4.10 K/uL [facility] ABSOLUTE MONOS 0.50 0.16 - 1.10 K/uL [facility] ABSOLUTE EOS 0.36 0.00 - 0.50 K/uL [facility] ABSOLUTE BASOS 0.07 0.00 - 0.15 K/uL [facility] Granulocytes, immature 0.05 0.00 - 0.09 K/uL [facility] Blood 05/26/2025 12:0 9 AM EDT 05/26/2025 12:27 AM EDT Wilver Mendoza PA-C LAB BLOOD ORDERABLES Final R esult [address] [address] * Magnesium (05/26/2025 12:09 AM EDT) MAGNESIUM 1.9 1.6 - 2.6 mg/dL [facility] 05/26/2025 12:0 9 AM EDT 05/26/2025 12:27 AM EDT Wilver Mendoza PA-C LAB BLOOD ORDERABLES Final R esult [address] [address] * Lipase (05/26/2025 12:09 AM EDT) LIPASE 24 16 - 63 U/L [facility] Blood 05/26/2025 12:0 9 AM EDT 05/26/2025 12:27 AM EDT Wilver Mendoza PA-C LAB BLOOD ORDERABLES Final R esult Performing Organization Address City/[facility]/[place] Co de Phone Number [address] [address] * (ABNORMAL) Basic metabolic panel (05/26/2025 12:09 AM EDT) [facility] SODIUM 144 133 - 146 mmol/L [facility] CHLORIDE 108 96 - 108 mmol/L [facility] POTASSIUM 3.2(L) 3.3 - 5.1 mmol/L [facility] Comment:Specimen slightly he molyzed, result may be falsely elevated. CO2 21 21 - 35 mmol/L [facility] BUN 11 6 - 19 mg/dL [facility] CREATININE 0.80 0.5 - 1.5 mg/dL [facility] GLUCOSE 114(H) 70 - 99 mg/dL [facility] CALCIUM 8.6 8.4 - 10.3 mg/dL [facility] EGFR 119 >59 mL/min/1.7 3m2 [facility] Comment:Estimated glomerular filtration rate calculated using the CKD-EPI refit equation. ANION GAP 18 10 - 20 mmol/L [facility] Blood 05/26/2025 12:0 9 AM EDT 05/26/2025 12:27 AM EDT Wilver Mendoza PA-C LAB BLOOD ORDERABLES Final R esult Performing Organization Address City/[facility]/ZIP Co de Phone Number [address] [address] * ECG 12-LEAD (05/26/2025 12:06 AM EDT) [facility] Ventricular Rate EKG/MIN 99 BPM [facility] Atrial Rate 99 BPM [facility] GA Interval 166 ms [facility] QRS Duration 118 ms [facility] QT Interval 378 ms [facility] QTC Interval 485 ms [facility] P [facility] 75 degrees [facility] R Wave [facility] 21 degrees [facility] T Wave [facility] 30 degrees [facility] 05/26/2025 12:0 6 AM EDT 05/29/2025 7:37 AM EDT Narrative [facility] - 05/29/2025 7:37 AM EDT Normal sinus rhythm Non-specific intra-ventricular conduction delay Prolonged QT Abnormal ECG No previous ECGs available Confirmed by Wilver Menard ([id number]) on 05/29/2025 7:37:28 AM us Wilver Mendoza PA-C ECG ORDERABLES Final Result [facility] * (ABNORMAL) POCT Glucose (05/26/2025 12:06 AM EDT) [facility] Glucose, POCT 106(H) 70 - 100 mg/dL [facility] 05/26/2025 12:0 6 AM EDT 05/26/2025 12:11 AM EDT us Kiko Thomas MD, DPHIL POINT OF CARE NEHEMIAS T ORDERABLES Final Result Performing Organization Address [facility]/[place] Co de Phone Number [address] [address] * US BEDSIDE (05/25/2025 11:50 PM EDT) Anatomical Region Laterality Modality Ultrasound Narrative 05/25/2025 11:50 PM EDT Kiko Thomas MD, DPHIL 05/26/2025 1:10 AM Bedside Ultrasound Date/Time: 05/25/2025 11:50 PM Performed by: Kiko Thomas MD, DPHIL Authorized by: Kiko Thomas MD, DPHIL Exam Type: Abdomen, Cardiac Transthoracic Echocardiogram and Thoracic Abdomen Exam Findings & Impression: Indications: patient with blunt abdominal trauma and pain RUQ Findings: the RUQ was visualized and was negative for free fluid LUQ Findings: the LUQ was visualized and was negative for free fluid Pelvis Findings: the retrovesicular space was visualized and was negative for free fluid Overall Impression: negative Cardiac Transthoracic Echocardiogram Exam Findings & Impression: Indications: patient with chest pain Views: parasternal long Pericardial Effusion: the pericardial space was visualized and was negative for a pericardial effusion Overall Impression: negative Thoracic Exam Findings & Impression: Indications: patient with shortness of breath Right Lung B-Lines: the R chest was visualized and multiple B lines were seen Left Lung B-Lines: the L chest was visualized and multiple B lines were seen Overall Impression: negative Images: Images Saved: Yes Accession Number: [id number] [facility] Alexsander Thomas MD, DPHIL IMG POINT OF CARE EXAMS Final Result from Last 3 Months Insurance [facility] [address] [place] [address] [place] [id number] [place] [address] [place] [phone] C[place] [employer] [facility] C3 ACO Care Teams Concreter Relationship Specialty Start Date End Date Pcp, Unknown PCP - General 05/25/25 Additional Source Comments The information contained in this document represents components of the legal health record. It is not the complete legal health record.[facility]
--- OUTSIDE RECORDS SUMMARY | 2025-06-22 15:39 | XMS_ITS | Clinical Summary ---
Author Organization [facility] Address [address] [place] [address] Phone Care Team Providers Care Manager Drug Safety Name Role Phone Unavailable Primary Care Provider [...] 07/26/2002, Additional history exists Influenza Vaccines (#1) 2025 COVID-19 Vaccine ( season) 2025 HIB Vaccines Completed 09/20/1991, 06/22, 02/04/1991, [...]
--- OUTSIDE RECORDS SUMMARY | 2025-06-22 15:39 | XMS_ITS | Encounter Summary ---
Author Organization [facility] Address [address] [place] [address] Phone Care Team Providers Care Air Tube Releaser Name Role Phone Pcp, Unknown Primary Care Provider Unavailabl e Encounter Details Date Type Department Care Team (Late st Contact Info) Description 05/25/2025 Procedure Pass [facility], Ct Scan - [facility] [address] [place], [place] [phone] Social History Tobacco Use Types Packs/Day Years [...] on filedocumented in this encounter Care Teams Air Tube Releaser Relationship Specialty Start Date End Date Pcp, Unknown PCP - General 05/25/25 documented as of this encounter Additional Source Comments The information contained in this document represents components of the legal health record. It is not the complete legal health record.[facility]
--- OUTSIDE RECORDS SUMMARY | 2025-06-22 15:39 | XMS_ITS | Encounter Summary ---
Author Organization [facility] Address [address] [place] [address] Phone Care Team Providers Care Agile Java Developer Name Role Phone Pcp, Unknown Primary Care Provider Unavailabl e Encounter Details Date Type Department Care Team (Late st Contact Info) Description 05/25/2025 Procedure Pass [facility], Ct Scan - [facility] [address] [place], [place] [phone] Social History Tobacco Use Types Packs/Day Years [...] on filedocumented in this encounter Care Teams Agile Java Developer Relationship Specialty Start Date End Date Pcp, Unknown PCP - General 05/25/25 documented as of this encounter Additional Source Comments The information contained in this document represents components of the legal health record. It is not the complete legal health record.[facility]
--- OUTSIDE RECORDS SUMMARY | 2025-06-22 15:40 | XMS_ITS | Encounter Summary ---
Author Organization [employer] Address [address] [place] [address] Care Team Providers Care Senior Naval Parachutist Name Role Phone Jennifer Osman [facility] Primary Care Provider [phone] Encounter Details Date Type Department Care Team ([facility] st Contact Info) Description 10/10/2022 Telephone [facility] [address] [facility] [address] [place], [place] [phone] MauryJennifer [facility] [address] [place] [address] Social History Tobacco Use Types Packs/Day Years [...] on filedocumented in this encounter Care Teams Senior Naval Parachutist Relationship Specialty Start Date End Date Jennifer Osman FNP [address] [place] [address] PCP - General Family Medicine 05/16/22 Lela Wilson Gaming WorkerBilingual Executive Assistant 01/05/24 documented as of this encounter
== END 2025-06-22 13:54 | disposition home or self-care (01) ==
LOC: HO.NEURO 13:53
PROVIDERS: PCP Registered Nurse; Visit Provider Family Medicine
DX: M54.42 Lumbago with sciatica, left side (principal); R20.2 Paresthesia of skin
CPT/HCPCS: 95886; 95910

== ENCOUNTER → 2025-06-22 14:35 | Outpatient (BNV) | payer MEDICAID, SELFPAY | PROVIDERS: PCP Registered Nurse; Visit Provider Psychiatry & Neurology Neurology | DX: M54.42 Lumbago with sciatica, left side (principal) | CPT/HCPCS: 95886; 95910 ==